=== PATIENT | male | born 1965 | race Caucasian/White ===

== ENCOUNTER 2024-09-01 21:06 | Emergency (ER) | payer MEDICARE, OTHER ==
--- NOTE | 2024-09-01 21:39 | ED ---
Chest Pain HPI - General Source: patient Mode of arrival: ambulatory Limitations: no limitations <Avila Hinds - Last Filed: 09/01/24 21:37> <Palmer Ambriz - Last Filed: 09/26/24 06:18> - General Stated Complaint: chest pain Time Seen by Provider: 09/01/24 21:20 - History of Present Illness Initial Comments: Quick note: This is a 58-year-old male with history of cardiac stents and catheterizations presenting via EMS with low blood pressure since this morning. Patient endorses blood pressure in the 70s over 40s with associated presyncope and low burning in his left lower chest. Patient states he has a history of low blood pressure and takes medication to correct it. Denies dyspnea, radiating pain, pallor, diaphoresis. (Avila Hinds) - Related Data Home Medications Medication Instructions Recorded Confirmed ARIPiprazole [Abilify] 2 mg PO HS 08/15/24 08/15/24 Clopidogrel [Plavix] 75 mg PO DAILY 08/15/24 08/15/24 Colchicine [Colcrys] 0.6 mg PO DAILY 08/15/24 08/15/24 Empagliflozin [Jardiance] 10 mg PO DAILY 08/15/24 08/15/24 Metoprolol Succinate (ER) [Toprol 25 mg PO DAILY 08/15/24 08/15/24 XL] Mometasone/Formoterol [Dulera 200 2 puff INHALATION RT-BID 08/15/24 08/15/24 Mcg-5 Mcg Inhaler] Pregabalin [Lyrica] 200 mg PO BID 08/15/24 08/15/24 Ranolazine [Ranexa] 1,000 mg PO BID 08/15/24 08/15/24 Rosuvastatin Calcium [Crestor] 40 mg PO DAILY 08/15/24 08/15/24 Sertraline [Zoloft] 100 mg PO DAILY 08/15/24 08/15/24 Ziprasidone [Geodon] 80 mg PO DAILY 08/15/24 08/15/24 busPIRone HCL 15 mg PO TID 08/15/24 08/15/24 metFORMIN HCL ER [Glucophage XR] 500 mg PO W/SUPPER 08/15/24 08/15/24 Previous Rx's Medication Instructions Recorded Fenofibrate [Lofibra] 54 mg PO DAILY 30 Days #30 tab 08/15/24 Fludrocortisone [Florinef] 0.1 mg PO DAILY 30 Days #30 tab 08/15/24 Allergies Allergy/AdvReac Type Severity Reaction Status Date / Time codeine Allergy Rash/Hives Verified 09/21/24 06:51 Review of Systems ROS Other: All systems not noted in ROS Statement are negative. <GuzmanAvila - Last Filed: 09/01/24 21:37> ROS Other: All systems not noted in ROS Statement are negative. <Palmer Ambriz - Last Filed: 09/26/24 06:18> ROS Statement: Those systems with pertinent positive or pertinent negative responses have been documented in the HPI. Past Medical History Past Medical History: Asthma, Coronary Artery Disease (CAD), Chest Pain / Angina, COPD, Diabetes Mellitus, GERD/Reflux, Hyperlipidemia, Myocardial Infarction ([place]), Sleep Apnea/CPAP/BIPAP, Syncope Additional Past Medical History / Comment(s): 6 stents and 8 heart caths, bilateral cataracts, hypotension,divericulitis Last Myocardial Infarction Date:: 2022 History of Any Multi-Drug Resistant Organisms: None Reported Past Surgical History: Appendectomy, Bowel Resection, Heart Catheterization With Stent, Hernia Repair, Tonsillectomy Additional Past Surgical History / Comment(s): right knee, right forearm. left facial reconstruction, bilateral henia sx, partial left colon removed Past Anesthesia/Blood Transfusion Reactions: No Reported Reaction Date of Last Stent Placement:: 06/2024 Past Psychological History: ADD/ADHD, Anxiety, Bipolar, Depression Smoking Status: Former smoker Past Alcohol Use History: None Reported Past Drug Use History: None Reported - Past Family History Father Family Medical History: Cancer Additional Family Medical History / Comment(s): brain cancer Mother Family Medical History: Congestive Heart Failure (CHF) <GuzmanAvila - Last Filed: 09/01/24 21:37> General Exam <GuzmanAvila - Last Filed: 09/01/24 21:37> Limitations: no limitations General appearance: alert, in no apparent distress Head exam: Present: atraumatic, normocephalic Eye exam: Present: normal appearance ENT exam: Present: normal oropharynx Neck exam: Present: normal inspection Respiratory exam: Present: normal lung sounds bilaterally. Absent: respiratory distress, wheezes, rales, rhonchi, stridor, accessory muscle use Cardiovascular Exam: Present: regular rate, normal rhythm, normal heart sounds. Absent: systolic murmur, diastolic murmur, rubs, gallop GI/Abdominal exam: Present: soft. Absent: distended, tenderness, guarding, rebound, rigid, mass Extremities exam: Present: normal inspection, normal capillary refill. Absent: pedal edema, calf tenderness Back exam: Present: normal inspection. Absent: CVA tenderness (R), CVA tenderness (L) Neurological exam: Present: alert Skin exam: Present: warm, dry, intact, normal color. Absent: rash <Palmer Ambriz - Last Filed: 09/26/24 06:18> - General Exam Comments Initial Comments: Visual Physical Exam Vital signs reviewed General: Well-appearing, nontoxic, no acute distress. Head: Normocephalic, atraumatic Eyes: PERRLA, EOMI ENT: Airway patent Chest: Nonlabored breathing Skin: No visual rash, normal skin tone Neuro: Alert and oriented 3 Musculoskeletal: No gross abnormalities (Avila Hinds) Course Vital Signs 09/01/24 09/02/24 09/02/24 22:34 00:46 02:18 Temperature 98.1 F Pulse Rate 85 86 84 Respiratory 16 16 16 Rate Blood Pressure 124/79 133/79 134/80 O2 Sat by Pulse 98 97 99 Oximetry 09/02/24 03:03 Temperature Pulse Rate 87 Respiratory 18 Rate Blood Pressure 146/92 O2 Sat by Pulse 99 Oximetry Chest Pain MDM <Avila Hinds - Last Filed: 09/01/24 21:37> <Palmer Ambriz - Last Filed: 09/26/24 06:18> - MDM I completed the quick note portion of this chart signed ALBINO Franklin (Avila Hinds) The patient had chest x-ray that I interpreted as negative for acute infiltrate, pneumothorax, congestive heart failure Was pt. sent in by a medical professional or institution (BRAD Hernandez, [employer]ER, urgent care, hospital, or [facility]...) When possible be specific @ -[No] Did you speak to anyone other than the patient for history (EMS, parent, family, police, friend...)? What history was obtained from this source @ -[No] Did you review nursing and triage notes (agree or disagree)? Why? @ -[I reviewed and agree with nursing and triage notes] Were old charts reviewed (outside hosp., previous admission, EMS record, old EKG, old radiological studies, urgent care reports/EKG's, [facility] records)? Report findings @ -[No old charts were reviewed] Differential Diagnosis (chest pain, altered mental status, abdominal pain women, abdominal pain men, vaginal bleeding, weakness, fever, dyspnea, syncope, headache, dizziness, GI bleed, back pain, seizure, CVA, palpatations, mental health, musculoskeletal)? @ -[Differential Chest Pain: Stable Angina, Unstable Angina, STEMI, NSTEMI Aortic Dissection, Pneumothorax, Musculoskeletal, Esophageal Spasm GERD, Cholecystitis, Pancreatitis, Zoster, this is not meant to be an all-inclusive list. EKG interpreted by me (3pts min.). @ -[As above] X-rays interpreted by me (1pt min.). @ -[I interpreted as above CT interpreted by me (1pt min.). @ -[None done] U/S interpreted by me (1pt. min.). @ -[None done] What testing was considered but not performed or refused? (CT, X-rays, U/S, labs)? Why? @ -[None] What meds were considered but not given or refused? Why? @ -[None] Did you discuss the management of the patient with other professionals (professionals i.e. , PA, [employer]UCETS ASSEMBLER, lab, RT, psych nurse, social work professor, table assembler metal, teacher, customs and border protection officer, rehabilitation case coordinator)? Give summary @ -[No] Was smoking cessation discussed for >3mins.? @ -[No] Was critical care preformed (if so, how long)? @ -[No] Were there social determinants of health that impacted care today? How? (Homelessness, low income, unemployed, alcoholism, drug addiction, transportation, low edu. Level, literacy, decrease access to med. care, fdc, rehab)? @ -[No] Was there de-escalation of care discussed even if they declined (Discuss DNR or withdrawal of care, Hospice)? DNR status @ -[No] What co-morbidities impacted this encounter? (DM, HTN, Smoking, COPD, CAD, Cancer, CVA, ARF, Chemo, Hep., AIDS, mental health diagnosis, sleep apnea, morbid obesity)? @ -[Diabetes. Hypotension Was patient admitted / discharged? Hospital course, mention meds given and route, prescriptions, significant lab abnormalities, going to OR and other pertinent info. @ -[Patient here with chest pain. The initial history and physical exam are benign. Given that the patient had recent onset symptoms he is kept for 2 sets of troponins. After that on reevaluation patient is feeling well and would like to go home. Discussed appropriate further care and follow-up as well as return parameters. Patient to have follow-up with cardiology. Undiagnosed new problem with uncertain prognosis? @ -[No] Drug Therapy requiring intensive monitoring for toxicity (Heparin, Nitro, Insulin, Cardizem)? @ -[No] Were any procedures done? @ -[No] Diagnosis/symptom? @ -[Acute chest pain Acute on chronic hypotension Acute, or Chronic, or Acute on Chronic? @ -[Acute Uncomplicated (without systemic symptoms) or Complicated (systemic symptoms)? @ -[Uncomplicated Side effects of treatment? @ -[No] Exacerbation, Progression, or Severe Exacerbation? @ -[No] Poses a threat to life or bodily function? How? (Chest pain, [place], [place], pneumonia, PE, COPD, DKA, ARF, appy, cholecystitis, CVA, Diverticulitis, Homicidal, Suicidal, threat to staff... and all critical care pts) @ -[There is some risk of threat to life therefore patient to have close follow-up with cardiology All treatments are based on ideal body weight as in ED triage (Palmer Ambriz) Disposition <Avila Hinds - Last Filed: 09/01/24 21:37> Is patient prescribed a controlled substance at d/c from ED?: No <Palmer Ambriz - Last Filed: 09/26/24 06:18> Clinical Impression: Chest pain Disposition: HOME SELF-CARE Condition: Good Instructions (If sedation given, give patient instructions): Chest Pain (ED) Referrals: None,Stated [Primary Care Provider] - 1-2 days
[2024-09-01 22:16] LABS: ALT 18 U/L (4-49); AST 22 U/L (17-59); African American GFR (CKD) >90 (>60 ml/min/1.73 sqM); Albumin 3.9 g/dL (3.5-5.0); Alkaline Phosphatase 75 U/L (38-126); Anion Gap 12 mmol/L; Blood Urea Nitrogen 10 mg/dL (9-20); Calcium 9.5 mg/dL (8.4-10.2); Carbon Dioxide 20 mmol/L (22-30); Chloride 107 mmol/L (98-107); Glucose 150 mg/dL (74-99); Non-African American GFR(CKD) 84 (>60 ml/min/1.73 sqM); Potassium 3.4 mmol/L (3.5-5.1); Sodium 139 mmol/L (137-145); Total Bilirubin 0.4 mg/dL (0.2-1.3); Total Protein 6.2 g/dL (6.3-8.2)
[2024-09-01 22:19] LABS: Partial Thromboplastin Time 23.3 sec (22.0-30.0); Prothrombin Time 10.9 sec (10.0-12.5)
[2024-09-01 22:26] LABS: HCT 32.8 % (39.0-53.0); HGB 10.2 gm/dL (13.0-17.5); Hypochromasia Slight; MCH 26.3 pg (25.0-35.0); MCHC 31.1 g/dL (31.0-37.0); MCV 84.5 fL (80.0-100.0); Mean Platelet Volume 7.7; Platelet Count 300 k/uL (150-450); RBC 3.88 m/uL (4.30-5.90); RDW 15.9 % (11.5-15.5); WBC 3.6 k/uL (3.8-10.6)
[2024-09-01 22:38] VITALS: TEMP 98.1
[2024-09-01 22:57] LABS: Band Neutrophils % 1 %; Eosinophils # (M) 0.25 k/uL (0-0.7); Lymphocytes # (M) 1.66 k/uL (1.0-4.8); Monocytes # (M) 0.54 k/uL (0-1.0); Neutrophils % (M) 31 %; Nucleated Red Blood Cells 0 /100 WBC (0-0); Total Cells Counted 100
[2024-09-01 22:58] LABS: Polychromasia Present
--- NOTE | 2024-09-02 00:08 | XR ---
EXAM: XR Chest, 2 Views CLINICAL HISTORY: ITS.REASON XR Reason: Chest Pain TECHNIQUE: Frontal and lateral views of the chest. COMPARISON: 08/14/24 FINDINGS: Lungs: No consolidation. Pleural space: No pleural effusion or pneumothorax. Heart: No cardiomegaly or pulmonary vascular congestion. Bones/joints: No acute fracture. No dislocation. Old right rib fractures. IMPRESSION: No evidence of acute cardiopulmonary disease.
[2024-09-02 03:13] VITALS: BP 146/92; PULSE 87; RESP 18
== END 2024-09-02 03:13 | disposition home or self-care (01) ==
LOC: EC 21:06
DX: R07.9 Chest pain, unspecified (principal); E11.9 Type 2 diabetes mellitus without complications; I10 Essential (primary) hypertension; Z95.5 Presence of coronary angioplasty implant and graft; Z87.891 Personal history of nicotine dependence; Z88.5 Allergy status to narcotic agent
CPT/HCPCS: 36415; 71046; 80053; 83735; 84484; 85025; 85610; 85730; 93005; 99285

== ENCOUNTER 2024-09-21 06:49 | Emergency (ER) | payer MEDICARE, OTHER ==
--- NOTE | 2024-09-21 06:56 | ED ---
General Adult HPI - General Chief complaint: Urogenital Stated complaint: Back Pain Time Seen by Provider: 09/21/24 06:55 Source: patient, RN notes reviewed Mode of arrival: ambulatory Limitations: no limitations - History of Present Illness Initial comments: 59-year-old male presents emergency department complaint of right flank pain. Patient states he woke up with pain without injury. Patient states his worse with movement and touching of the area but it denies any rashes, falls or trauma. Does have a history of some kidney issues believes he may have had a history of kidney stones no dysuria denies fevers or chills no chest pain or shortness of breath. - Related Data Home Medications Medication Instructions Recorded Confirmed ARIPiprazole [Abilify] 2 mg PO HS 08/15/24 08/15/24 Clopidogrel [Plavix] 75 mg PO DAILY 08/15/24 08/15/24 Colchicine [Colcrys] 0.6 mg PO DAILY 08/15/24 08/15/24 Empagliflozin [Jardiance] 10 mg PO DAILY 08/15/24 08/15/24 Metoprolol Succinate (ER) [Toprol 25 mg PO DAILY 08/15/24 08/15/24 XL] Mometasone/Formoterol [Dulera 200 2 puff INHALATION RT-BID 08/15/24 08/15/24 Mcg-5 Mcg Inhaler] Pregabalin [Lyrica] 200 mg PO BID 08/15/24 08/15/24 Ranolazine [Ranexa] 1,000 mg PO BID 08/15/24 08/15/24 Rosuvastatin Calcium [Crestor] 40 mg PO DAILY 08/15/24 08/15/24 Sertraline [Zoloft] 100 mg PO DAILY 08/15/24 08/15/24 Ziprasidone [Geodon] 80 mg PO DAILY 08/15/24 08/15/24 busPIRone HCL 15 mg PO TID 08/15/24 08/15/24 metFORMIN HCL ER [Glucophage XR] 500 mg PO W/SUPPER 08/15/24 08/15/24 Previous Rx's Medication Instructions Recorded Fenofibrate [Lofibra] 54 mg PO DAILY 30 Days #30 tab 08/15/24 Fludrocortisone [Florinef] 0.1 mg PO DAILY 30 Days #30 tab 08/15/24 Allergies Allergy/AdvReac Type Severity Reaction Status Date / Time codeine Allergy Rash/Hives Verified 09/21/24 06:51 Review of Systems ROS Statement: Those systems with pertinent positive or pertinent negative responses have been documented in the HPI. ROS Other: All systems not noted in ROS Statement are negative. Past Medical History Past Medical History: Asthma, Coronary Artery Disease (CAD), Chest Pain / Angina, COPD, Diabetes Mellitus, GERD/Reflux, Hyperlipidemia, Myocardial Infarction ([place]), Sleep Apnea/CPAP/BIPAP, Syncope Additional Past Medical History / Comment(s): 6 stents and 8 heart caths, bilateral cataracts, hypotension,divericulitis Last Myocardial Infarction Date:: 2022 History of Any Multi-Drug Resistant Organisms: None Reported Past Surgical History: Appendectomy, Bowel Resection, Heart Catheterization With Stent, Hernia Repair, Tonsillectomy Additional Past Surgical History / Comment(s): right knee, right forearm. left facial reconstruction, bilateral henia sx, partial left colon removed Past Anesthesia/Blood Transfusion Reactions: No Reported Reaction Date of Last Stent Placement:: 06/2024 Past Psychological History: ADD/ADHD, Anxiety, Bipolar, Depression Smoking Status: Former smoker Past Alcohol Use History: None Reported Past Drug Use History: None Reported - Past Family History Father Family Medical History: Cancer Additional Family Medical History / Comment(s): brain cancer Mother Family Medical History: Congestive Heart Failure (CHF) General Exam Limitations: no limitations General appearance: alert, in no apparent distress Head exam: Present: atraumatic, normocephalic, normal inspection Eye exam: Present: normal appearance, PERRL, EOMI. Absent: scleral icterus, conjunctival injection, periorbital swelling ENT exam: Present: normal exam, normal oropharynx, mucous membranes moist Neck exam: Present: normal inspection, full ROM. Absent: tenderness, meningismus, lymphadenopathy Respiratory exam: Present: normal lung sounds bilaterally. Absent: respiratory distress, wheezes, rales, rhonchi, stridor Cardiovascular Exam: Present: regular rate, normal rhythm, normal heart sounds. Absent: systolic murmur, diastolic murmur, rubs, gallop, clicks GI/Abdominal exam: Present: soft, normal bowel sounds. Absent: distended, tenderness, guarding, rebound, rigid Back exam: Present: CVA tenderness (R). Absent: CVA tenderness (L) Neurological exam: Present: alert, oriented X3, CN II-XII intact, reflexes normal. Absent: motor sensory deficit Course Vital Signs 09/21/24 09/21/24 09/21/24 06:51 07:56 10:00 Temperature 97.7 F 97.9 F Pulse Rate 105 H 76 78 Respiratory 18 16 15 Rate Blood Pressure 104/69 123/78 129/82 O2 Sat by Pulse 100 96 99 Oximetry Medical Decision Making - Medical Decision Making Was pt. sent in by a medical professional or institution (, PA, MECHANICAL DESIGN ENG[employer]ER [employer], urgent care, hospital, or group home...) When possible be specific @ -No Did you speak to anyone other than the patient for history (EMS, parent, family, police, friend...)? What history was obtained from this source @ -No Did you review nursing and triage notes (agree or disagree)? Why? @ -I reviewed and agree with nursing and triage notes Were old charts reviewed (outside hosp., previous admission, EMS record, old EKG, old radiological studies, urgent care reports/EKG's, group home records)? Report findings @ -No old charts were reviewed Differential Diagnosis (chest pain, altered mental status, abdominal pain women, abdominal pain men, vaginal bleeding, weakness, fever, dyspnea, syncope, headache, dizziness, GI bleed, back pain, seizure, CVA, palpatations, mental health, musculoskeletal)? @ -Differential Abdominal Pain Men: Appendicitis, cholecystitis, diverticulosis, ischemic bowel, pancreatitis, hepatitis, UTI, gastroenteritis, AAA, incarcerated hernia, bowel obstruction, constipation, inflammatory bowel, hepatitis, peptic ulcer disease, splenic infarction, perforated viscus, testicular torsion, this is not meant to be an all-inclusive list EKG interpreted by me (3pts min.). @ -As above X-rays interpreted by me (1pt min.). @ -None CT interpreted by me (1pt min.). @ -CT abdomen pelvis showing old rib fractures, no acute process U/S interpreted by me (1pt. min.). @ -None done What testing was considered but not performed or refused? (CT, X-rays, U/S, labs)? Why? @ -None What meds were considered but not given or refused? Why? @ -None Did you discuss the management of the patient with other professionals (professionals i.e. , PA, MECHANICAL DESIGN ENGINEER [employer]IES, lab, RT, psych nurse, public health social worker, dial mounter, teacher, energy control officer, returned case inspector)? Give summary @ -No Was smoking cessation discussed for >3mins.? @ -No Was critical care preformed (if so, how long)? @ -No Were there social determinants of health that impacted care today? How? (Homelessness, low income, unemployed, alcoholism, drug addiction, transportation, low edu. Level, literacy, decrease access to med. care, halfway, rehab)? @ -No Was there de-escalation of care discussed even if they declined (Discuss DNR or withdrawal of care, Hospice)? DNR status @ -No What co-morbidities impacted this encounter? (DM, HTN, Smoking, COPD, CAD, Cancer, CVA, ARF, Chemo, Hep., AIDS, mental health diagnosis, sleep apnea, morbid obesity)? @ -None Was patient admitted / discharged? Hospital course, mention meds given and route, prescriptions, significant lab abnormalities, going to OR and other pertinent info. @ -Discharge patient has moderate hyperglycemia patient did not take his morning medication patient offered insulin patient states she will take his meds at home. Patient has reproducible rib tenderness may be laboratory process patient has old rib fractures no new trauma we discussed possible early shingles patient discharged in stable condition Undiagnosed new problem with uncertain prognosis? @ -No Drug Therapy requiring intensive monitoring for toxicity (Heparin, Nitro, Insulin, Cardizem)? @ -No Were any procedures done? @ -No Diagnosis/symptom? @ -Chest wall pain, rib pain Acute, or Chronic, or Acute on Chronic? @ -[Acute Uncomplicated (without systemic symptoms) or Complicated (systemic symptoms)? @ -Uncomplicated Side effects of treatment? @ -[No Exacerbation, Progression, or Severe Exacerbation? @ -No Poses a threat to life or bodily function? How? (Chest pain, [place], [place], pneumonia, PE, COPD, DKA, ARF, appy, cholecystitis, CVA, Diverticulitis, Homicidal, Suicidal, threat to staff... and all critical care pts) @ -No - Lab Data Result diagrams: 09/21/24 07:49 09/21/24 07:49 Lab Results 03/19/25 03/19/25 03/19/25 Range/Units 07:49 07:49 07:49 WBC 3.6 L (3.8-10.6) k/uL RBC 4.51 (4.30-5.90) m/uL Hgb 11.5 L (13.0-17.5) gm/dL Hct 37.4 L (39.0-53.0) % MCV 83.0 (80.0-100.0) fL MCH 25.4 (25.0-35.0) pg MCHC 30.6 L (31.0-37.0) g/dL RDW 15.5 (11.5-15.5) % Plt Count 361 (150-450) k/uL MPV 7.5 Neutrophils % 54 % Lymphocytes % 25 % Monocytes % 10 % Eosinophils % 6 % Basophils % 1 % Neutrophils # 2.0 (1.3-7.7) k/uL Lymphocytes # 0.9 L (1.0-4.8) k/uL Monocytes # 0.3 (0-1.0) k/uL Eosinophils # 0.2 (0-0.7) k/uL Basophils # 0.0 (0-0.2) k/uL Hypochromasia Marked Sodium 133 L (137-145) mmol/L Potassium 4.4 (3.5-5.1) mmol/L Chloride 96 L (98-107) mmol/L Carbon Dioxide 25 (22-30) mmol/L Anion Gap 12 mmol/L BUN 14 (9-20) mg/dL Creatinine 1.19 (0.66-1.25) mg/dL Est GFR (CKD-EPI)AfAm 76 (>60 ml/min/1.73 sqM) Est GFR (CKD-EPI)NonAf 66 (>60 ml/min/1.73 sqM) Glucose 339 H (74-99) mg/dL Calcium 10.9 H (8.4-10.2) mg/dL Total Bilirubin 0.5 (0.2-1.3) mg/dL AST 29 (17-59) U/L ALT 26 (4-49) U/L Alkaline Phosphatase 84 (38-126) U/L Total Protein 7.6 (6.3-8.2) g/dL Albumin 4.8 (3.5-5.0) g/dL Lipase 107 (23-300) U/L Urine Color Light Yellow Urine Appearance Clear (Clear) Urine pH 6.0 (5.0-8.0) Ur Specific [place] 1.026 (1.001-1.035) Urine Protein Trace H (Negative) Urine Glucose (UA) 4+ H (Negative) Urine Ketones Trace H (Negative) Urine Blood Negative (Negative) Urine Nitrite Negative (Negative) Urine Bilirubin Negative (Negative) Urine Urobilinogen <2.0 (<2.0) mg/dL Ur Leukocyte Esterase Negative (Negative) Disposition Clinical Impression: Rib pain on right side Disposition: HOME SELF-CARE Condition: Stable Instructions (If sedation given, give patient instructions): Chest Wall Pain (ED) Additional Instructions: Please return to the Emergency Department if symptoms worsen or any other concerns. Is patient prescribed a controlled substance at d/c from ED?: No Referrals: Sima Mcqueen DO [Primary Care Provider] - 1-2 days Time of Disposition: 10:05
[2024-09-21] MEDS: SODIUM CHLORIDE 0.9% 1,000 ML IV ONE (07:51)
[2024-09-21] MEDS: ONDANSETRON 4 MG/2 ML VIAL IVP STA (07:52)
[2024-09-21] MEDS: HYDROmorphone 0.5 MG/0.5 ML SYRINGE IVP STA (07:52)
[2024-09-21 07:57] LABS: Basophils % (A) 1 %; Eosinophils # (A) 0.2 k/uL (0-0.7); Eosinophils % (A) 6 %; HCT 37.4 % (39.0-53.0); HGB 11.5 gm/dL (13.0-17.5); Hypochromasia Marked; Lymphocytes # (A) 0.9 k/uL (1.0-4.8); Lymphocytes % (A) 25 %; MCH 25.4 pg (25.0-35.0); MCHC 30.6 g/dL (31.0-37.0); Mean Platelet Volume 7.5; Monocytes # (A) 0.3 k/uL (0-1.0); Monocytes % (A) 10 %; Neutrophils % (A) 54 %; Platelet Count 361 k/uL (150-450); RBC 4.51 m/uL (4.30-5.90); RDW 15.5 % (11.5-15.5); WBC 3.6 k/uL (3.8-10.6)
[2024-09-21 08:01] VITALS: TEMP 97.9
[2024-09-21 08:02] LABS: Appearance,Urine Clear (Clear); Bilirubin,Urine Negative (Negative); Blood,Urine Negative (Negative); Color,Urine Light Yellow; Glucose,Urine (UA) 4+ (Negative); Ketones,Urine Trace (Negative); Leukocyte Esterase,Urine Negative (Negative); Nitrite,Urine Negative (Negative); Protein,Urine Trace (Negative); Specific Gravity,Urine 1.026 (1.001-1.035); Urobilinogen,Urine <2.0 mg/dL (<2.0)
[2024-09-21 08:11] LABS: ALT 26 U/L (4-49); AST 29 U/L (17-59); African American GFR (CKD) 76 (>60 ml/min/1.73 sqM); Albumin 4.8 g/dL (3.5-5.0); Alkaline Phosphatase 84 U/L (38-126); Anion Gap 12 mmol/L; Blood Urea Nitrogen 14 mg/dL (9-20); Calcium 10.9 mg/dL (8.4-10.2); Carbon Dioxide 25 mmol/L (22-30); Chloride 96 mmol/L (98-107); Glucose 339 mg/dL (74-99); Lipase 107 U/L (23-300); Non-African American GFR(CKD) 66 (>60 ml/min/1.73 sqM); Potassium 4.4 mmol/L (3.5-5.1); Sodium 133 mmol/L (137-145); Total Bilirubin 0.5 mg/dL (0.2-1.3); Total Protein 7.6 g/dL (6.3-8.2)
--- NOTE | 2024-09-21 08:50 | CT ---
EXAMINATION TYPE: CT abdomen pelvis wo con DATE OF EXAM: 09/21/2024 8:20 AM COMPARISON: None. CLINICAL INDICATION: Male, 59 years old with history of right flank pain/rib pain; TECHNIQUE: Axial CT abdomen pelvis wo con;Sagittal and coronal reformats were created on a separate workstation. Contrast used: mL of , (none if empty) Oral contrast used: (none if empty) CT DLP: 406 mGycm, Automated exposure control for dose reduction was used. FINDINGS: LOWER CHEST: Remote appearing right rib 9-12 fractures with healing changes. Normal-appearing right t ransverse process of L1 fracture. ABDOMEN LIVER: Unremarkable GALLBLADDER AND BILE DUCTS: Unremarkable. PANCREAS: Unremarkable. SPLEEN: Unremarkable. ADRENAL GLANDS: Unremarkable. KIDNEYS AND URETERS: No evidence of hydronephrosis or obstructive renal calculus. 2 mm right renal ca lculus The ureters are unremarkable. PELVIS BLADDER: No evidence for wall thickening or mass given limitations of exam. REPRODUCTIVE: Unremarkable. ABDOMEN & PELVIS STOMACH AND BOWEL: No evidence of bowel obstruction. Appendix is identified and is within normal limi ts. Postsurgical changes to the sigmoid colon, no evidence for wall thickening or obstruction. Scatte red colonic diverticula. PERITONEUM/RETROPERITONEUM: No evidence of pneumoperitoneum or free fluid. VASCULATURE: Mild atherosclerotic calcifications are present throughout the abdominal aorta and its b ranches. No evidence of aortic aneurysm. MUSCULOSKELETAL: No acute osseous abnormalities. Mild disc degeneration changes are present throughou t the thoracolumbar spine. LYMPH NODES: No gross evidence for lymphadenopathy. SOFT TISSUE/ABDOMINAL WALL: Unremarkable IMPRESSION: 1. No evidence for obstructive uropathy. 2. Tiny 2 mm right renal calculus. 3. Remote appearing right rib 9-12 And Right Transverse Process Of L1 fractures. 4. Appendix is normal. 5. Colonic diverticulosis. [facility], , 09/21/2024 8:48 AM
[2024-09-21 10:07] VITALS: BP 129/82; PULSE 78; RESP 15
[2024-09-21] MEDS: traMADol 50 MG STARTER PACK 3 TAB BTL PO STA (10:14)
== END 2024-09-21 10:25 | disposition home or self-care (01) ==
LOC: EC 06:49
DX: R07.81 Pleurodynia (principal); Z87.891 Personal history of nicotine dependence; Z88.5 Allergy status to narcotic agent
CPT/HCPCS: 36415; 80053; 83690; 85025; 81003; 74176; 99284; 96374; 96375; 96361; J2405; J1171

== ENCOUNTER 2024-12-30 01:32 | Observation (INO) | payer MEDICARE, OTHER ==
[2024-12-30 01:43] VITALS: TEMP 98
[2024-12-30 02:11] LABS: Glucose,Whole Blood 120 mg/dL (70-110)
[2024-12-30 02:30] LABS: Basophils # (A) 0.06 10*3/uL (0.00-0.10); Eosinophils # (A) 0.21 10*3/uL (0.04-0.35); Eosinophils % (A) 3.5 %; HCT 33.1 % (39.6-50.0); HGB 10.7 g/dL (13.0-17.0); Lymphocytes # (A) 2.23 10*3/uL (0.90-5.00); Lymphocytes % (A) 36.9 %; MCH 26.1 pg (27.0-32.0); MCHC 32.3 g/dL (32.0-37.0); MCV 80.7 fL (80.0-97.0); Monocytes # (A) 0.57 10*3/uL (0.20-1.00); Monocytes % (A) 9.4 %; Neutrophils # (A) 2.93 10*3/uL (1.80-7.70); Neutrophils % (A) 48.4 %; Platelet Count 342 10*3/uL (140-440); RDW 18.6 % (11.5-14.5); WBC 6.05 10*3/uL (4.50-10.00)
[2024-12-30] MEDS: SODIUM CHLORIDE 0.9% 1,000 ML IV STA (02:41)
[2024-12-30] MEDS: ASPIRIN 81 MG PO STA (02:42)
[2024-12-30] MEDS: NITROGLYCERIN SL TABS 0.4 MG TAB SUBLINGUAL STA (02:43)
[2024-12-30 02:46] LABS: ALT 12 U/L (4-49); African American GFR (CKD) >90 (>60 ml/min/1.73 sqM); Albumin 4.3 g/dL (3.5-5.0); Anion Gap 14 mmol/L; Blood Urea Nitrogen 10 mg/dL (9-20); Calcium 9.6 mg/dL (8.4-10.2); Carbon Dioxide 20 mmol/L (22-30); Chloride 105 mmol/L (98-107); Glucose 117 mg/dL (74-99); Lipase 98 U/L (23-300); Non-African American GFR(CKD) >90 (>60 ml/min/1.73 sqM); Sodium 139 mmol/L (137-145); Total Bilirubin 0.4 mg/dL (0.2-1.3); Total Protein 7.1 g/dL (6.3-8.2)
[2024-12-30 02:52] LABS: AST 25 U/L (17-59); Alkaline Phosphatase 69 U/L (38-126); INR 0.9 (<1.2); Magnesium 2.2 mg/dL (1.6-2.3); Partial Thromboplastin Time 22.2 sec (22.0-30.0); Potassium 4.1 mmol/L (3.5-5.1); Prothrombin Time 9.8 sec (10.0-12.5)
[2024-12-30] MEDS ORDERED: NALOXONE 0.4 MG/ML 1 ML VIAL IV PRN (04:00)
[2024-12-30] MEDS ORDERED: ONDANSETRON 4 MG/2 ML VIAL IVP PRN (04:00)
--- NOTE | 2024-12-30 04:02 | ED ---
General Adult HPI - General Chief complaint: Chest Pain Stated complaint: chest pain abnormal labs Time Seen by Provider: 12/30/24 02:12 Source: patient, RN notes reviewed, old records reviewed Mode of arrival: ambulatory Limitations: no limitations - History of Present Illness Initial comments: Patient is a 59-year-old male with past medical history remarkable for CAD with multiple cardiac stents, asthma, diabetes, COPD who presents emergency department complaining of chest pain. Was somewhat sudden onset approximately an hour and a half ago. Describes it as substernal with some radiation up towards his neck. Denies any arm involvement. Denies any diaphoresis or nausea. Denies any worsening with exertion. Thinks his blood sugar also may be low. Denies any abdominal pain, nausea, vomiting, diarrhea. No fevers or chills or cough. Presents for further evaluation at this time. - Related Data Home Medications Medication Instructions Recorded Confirmed ARIPiprazole [Abilify] 2 mg PO HS 08/15/24 08/15/24 Clopidogrel [Plavix] 75 mg PO DAILY 08/15/24 08/15/24 Colchicine [Colcrys] 0.6 mg PO DAILY 08/15/24 08/15/24 Empagliflozin [Jardiance] 10 mg PO DAILY 08/15/24 08/15/24 Metoprolol Succinate (ER) [Toprol 25 mg PO DAILY 08/15/24 08/15/24 XL] Mometasone/Formoterol [Dulera 200 2 puff INHALATION RT-BID 08/15/24 08/15/24 Mcg-5 Mcg Inhaler] Pregabalin [Lyrica] 200 mg PO BID 08/15/24 08/15/24 Ranolazine [Ranexa] 1,000 mg PO BID 08/15/24 08/15/24 Rosuvastatin Calcium [Crestor] 40 mg PO DAILY 08/15/24 08/15/24 Sertraline [Zoloft] 100 mg PO DAILY 08/15/24 08/15/24 Ziprasidone [Geodon] 80 mg PO DAILY 08/15/24 08/15/24 busPIRone HCL 15 mg PO TID 08/15/24 08/15/24 metFORMIN HCL ER [Glucophage XR] 500 mg PO W/SUPPER 08/15/24 08/15/24 Previous Rx's Medication Instructions Recorded Fenofibrate [Lofibra] 54 mg PO DAILY 30 Days #30 tab 08/15/24 Fludrocortisone [Florinef] 0.1 mg PO DAILY 30 Days #30 tab 08/15/24 Allergies Allergy/AdvReac Type Severity Reaction Status Date / Time codeine Allergy Rash/Hives Verified 12/30/24 01:43 Review of Systems ROS Statement: Those systems with pertinent positive or pertinent negative responses have been documented in the HPI. Review of Systems: CONST: Denies fever EYES: Denies blurry vision ENT: Denies nasal congestion C/V: Endorses chest pain RESP: Denies shortness of breath GI: Denies abdominal pain : Denies dysuria SKIN: Denies rash. MSK: Denies joint pain. NEURO: Denies headache ROS Other: All systems not noted in ROS Statement are negative. Past Medical History Past Medical History: Asthma, Coronary Artery Disease (CAD), Chest Pain / Angina, COPD, Diabetes Mellitus, GERD/Reflux, Hyperlipidemia, Myocardial Infarction ([place]), Sleep Apnea/CPAP/BIPAP, Syncope Additional Past Medical History / Comment(s): 6 stents and 8 heart caths, bilateral cataracts, hypotension,divericulitis Last Myocardial Infarction Date:: 2022 History of Any Multi-Drug Resistant Organisms: None Reported Past Surgical History: Appendectomy, Bowel Resection, Heart Catheterization With Stent, Hernia Repair, Tonsillectomy Additional Past Surgical History / Comment(s): right knee, right forearm. left facial reconstruction, bilateral henia sx, partial left colon removed Past Anesthesia/Blood Transfusion Reactions: No Reported Reaction Date of Last Stent Placement:: 06/2024 Past Psychological History: ADD/ADHD, Anxiety, Bipolar, Depression Smoking Status: Former smoker Past Alcohol Use History: None Reported Past Drug Use History: None Reported - Past Family History Father Family Medical History: Cancer Additional Family Medical History / Comment(s): brain cancer Mother Family Medical History: Congestive Heart Failure (CHF) General Exam - General Exam Comments Initial Comments: General: Appears in no acute distress. HEAD: Normal with no signs of head trauma. EYES: PERRLA, EOMI, conjunctiva normal, no discharge. ENT: Hearing grossly intact, normal oropharynx. RESPIRATORY: Clear breath sounds bilaterally. No wheezes, rales, or rhonchi. C/V: Regular rate and rhythm. S1 and S2 auscultated, no edema, peripheral pulses 2+ and intact throughout ABD: Abd is soft, nontender, nondistended EXT: Normal range of motion, no obvious deformity SKIN: No rashes or lesions observed on exposed skin. NEURO: Alert and oriented x 4. Limitations: no limitations Course Vital Signs 12/30/24 01:38 Temperature 98 F Pulse Rate 89 Respiratory 18 Rate Blood Pressure 133/78 O2 Sat by Pulse 98 Oximetry Medical Decision Making - Medical Decision Making Was pt. sent in by a medical professional or institution (, BRAD, SUPERVISOR RIDE [employer]SEM[employer], urgent care, hospital, or care home...) When possible be specific @ -No Did you speak to anyone other than the patient for history (EMS, parent, family, police, friend...)? What history was obtained from this source @ -No Did you review nursing and triage notes (agree or disagree)? Why? @ -I reviewed and agree with nursing and triage notes Were old charts reviewed (outside hosp., previous admission, EMS record, old EKG, old radiological studies, urgent care reports/EKG's, care home records)? Report findings @ -Old EKGs reviewed from August 2024 with no significant acute change when compared with today's. Differential Diagnosis (chest pain, altered mental status, abdominal pain women, abdominal pain men, vaginal bleeding, weakness, fever, dyspnea, syncope, headache, dizziness, GI bleed, back pain, seizure, CVA, palpatations, mental health, musculoskeletal)? @ -Differential Chest Pain: Stable Angina, Unstable Angina, STEMI, NSTEMI Aortic Dissection, Pneumothorax, Musculoskeletal, Esophageal Spasm GERD, Cholecystitis, Pancreatitis, Zoster, this is not meant to be an all-inclusive list. EKG interpreted by me (3pts min.). @ -As above X-rays interpreted by me (1pt min.). @ -Chest x-ray unremarkable for any obvious acute cardiopulmonary process. CT interpreted by me (1pt min.). @ -None done U/S interpreted by me (1pt. min.). @ -None done What testing was considered but not performed or refused? (CT, X-rays, U/S, labs)? Why? @ -None What meds were considered but not given or refused? Why? @ -None Did you discuss the management of the patient with other professionals (professionals i.e. , BRAD, SUPERVISOR [employer]IDE [employer]SEM[employer], lab, RT, psych nurse, social work specialist, shiatsu therapist, teacher, real estate officer, egg caser)? Give summary @ -Discussed with the admitting provider, CARLENE PETERS who accepted the admission. Was smoking cessation discussed for >3mins.? @ -No Was critical care preformed (if so, how long)? @ -No Were there social determinants of health that impacted care today? How? (Homelessness, low income, unemployed, alcoholism, drug addiction, transportation, low edu. Level, literacy, decrease access to med. care, senior living, rehab)? @ -No Was there de-escalation of care discussed even if they declined (Discuss DNR or withdrawal of care, Hospice)? DNR status @ -No What co-morbidities impacted this encounter? (DM, HTN, Smoking, COPD, CAD, Cancer, CVA, ARF, Chemo, Hep., AIDS, mental health diagnosis, sleep apnea, morbid obesity)? @ -CAD Was patient admitted / discharged? Hospital course, mention meds given and route, prescriptions, significant lab abnormalities, going to OR and other pertinent info. @ -Based on patient's presentation physical exam, presents emergency department complaining of chest pain. Has a significant cardiac history. Vitals are within acceptable limits. Patient was given 324 mg of aspirin as well as a nitroglycerin tablet and IV fluids. Cardiac workup will be obtained. Patient was in agreement this plan. EKG shows no signs of acute ischemia. Chest x-ray unremarkable. Laboratory studies remarkable for undetectable troponin. Patient's blood sugars within acceptable limits. On reevaluation, patient's chest pain completely resolved with nitroglycerin tablet. Nitropaste will be applied. He will be admitted to cardiac observation. He was in agreement this plan. I spoke with the admitting provider, CARLENE PETERS accepted the admission. Cardiology consulted. Echo ordered Undiagnosed new problem with uncertain prognosis? @ -No Drug Therapy requiring intensive monitoring for toxicity (Heparin, Nitro, Insulin, Cardizem)? @ -No Were any procedures done? @ -No Diagnosis/symptom? @ -Chest pain Acute, or Chronic, or Acute on Chronic? @ -Acute Uncomplicated (without systemic symptoms) or Complicated (systemic symptoms)? @ -complicated Side effects of treatment? @ -No Exacerbation, Progression, or Severe Exacerbation? @ -No Poses a threat to life or bodily function? How? (Chest pain, USA, SC, pneumonia, PE, COPD, DKA, ARF, appy, cholecystitis, CVA, Diverticulitis, Homicidal, Suicidal, threat to staff... and all critical care pts) @ -Potentially, yes - Lab Data Result diagrams: 12/30/24 02:10 12/30/24 02:10 Lab Results 12/30/24 12/30/24 12/30/24 Range/Units 02:10 02:10 02:10 WBC 6.05 (4.50-10.00) 10*3/uL RBC 4.10 L (4.40-5.60) 10*6/uL Hgb 10.7 L (13.0-17.0) g/dL Hct 33.1 L (39.6-50.0) % MCV 80.7 (80.0-97.0) fL MCH 26.1 L (27.0-32.0) pg MCHC 32.3 (32.0-37.0) g/dL Plt Count 342 (140-440) 10*3/uL MPV 10.0 (9.5-12.2) fL Immature Gran % (Auto) 0.8 % Neutrophils % 48.4 % Lymphocytes % 36.9 % Monocytes % 9.4 % Eosinophils % 3.5 % Basophils % 1.0 % Immature Gran # 0.05 H (0.00-0.04) 10*3/uL Neutrophils # 2.93 (1.80-7.70) 10*3/uL Lymphocytes # 2.23 (0.90-5.00) 10*3/uL Monocytes # 0.57 (0.20-1.00) 10*3/uL Eosinophils # 0.21 (0.04-0.35) 10*3/uL Basophils # 0.06 (0.00-0.10) 10*3/uL PT 9.8 L (10.0-12.5) sec INR 0.9 (<1.2) APTT 22.2 (22.0-30.0) sec Sodium (137-145) mmol/L Potassium (3.5-5.1) mmol/L Chloride (98-107) mmol/L Carbon Dioxide (22-30) mmol/L Anion Gap mmol/L BUN (9-20) mg/dL Creatinine (0.66-1.25) mg/dL Est GFR (CKD-EPI)AfAm (>60 ml/min/1.73 sqM) Est GFR (CKD-EPI)NonAf (>60 ml/min/1.73 sqM) Glucose (74-99) mg/dL POC Glucose (mg/dL) 120 H (70-110) mg/dL POC Glu Porcel[employer] Buildup Assistant ID Shalonda Calles Calcium (8.4-10.2) mg/dL Magnesium (1.6-2.3) mg/dL Total Bilirubin (0.2-1.3) mg/dL AST (17-59) U/L ALT (4-49) U/L Alkaline Phosphatase (38-126) U/L Troponin I (0.000-0.034) ng/mL Total Protein (6.3-8.2) g/dL Albumin (3.5-5.0) g/dL Lipase (23-300) U/L 12/30/24 12/30/24 Range/Units 02:10 02:10 WBC (4.50-10.00) 10*3/uL RBC (4.40-5.60) 10*6/uL Hgb (13.0-17.0) g/dL Hct (39.6-50.0) % MCV (80.0-97.0) fL MCH (27.0-32.0) pg MCHC (32.0-37.0) g/dL Plt Count (140-440) 10*3/uL MPV (9.5-12.2) fL Immature Gran % (Auto) % Neutrophils % % Lymphocytes % % Monocytes % % Eosinophils % % Basophils % % Immature Gran # (0.00-0.04) 10*3/uL Neutrophils # (1.80-7.70) 10*3/uL Lymphocytes # (0.90-5.00) 10*3/uL Monocytes # (0.20-1.00) 10*3/uL Eosinophils # (0.04-0.35) 10*3/uL Basophils # (0.00-0.10) 10*3/uL PT (10.0-12.5) sec INR (<1.2) APTT (22.0-30.0) sec Sodium 139 (137-145) mmol/L Potassium 4.1 (3.5-5.1) mmol/L Chloride 105 (98-107) mmol/L Carbon Dioxide 20 L (22-30) mmol/L Anion Gap 14 mmol/L BUN 10 (9-20) mg/dL Creatinine 0.88 (0.66-1.25) mg/dL Est GFR (CKD-EPI)AfAm >90 (>60 ml/min/1.73 sqM) Est GFR (CKD-EPI)NonAf >90 (>60 ml/min/1.73 sqM) Glucose 117 H (74-99) mg/dL POC Glucose (mg/dL) (70-110) mg/dL POC Glu Porcelain Buildup Assistant ID Calcium 9.6 (8.4-10.2) mg/dL Magnesium 2.2 (1.6-2.3) mg/dL Total Bilirubin 0.4 (0.2-1.3) mg/dL AST 25 (17-59) U/L ALT 12 (4-49) U/L Alkaline Phosphatase 69 (38-126) U/L Troponin I <0.012 (0.000-0.034) ng/mL Total Protein 7.1 (6.3-8.2) g/dL Albumin 4.3 (3.5-5.0) g/dL Lipase 98 (23-300) U/L - EKG Data -: EKG Interpreted by Me EKG Comments: 12-lead Electrocardiogram Interpretation Note EKG was reviewed and interpreted by myself. 12-lead ECG performed at 0159 is interpreted by me as revealing normal sinus rhythm at a rate of 87 beats per minute. Left axis deviation. NV interval is 147 ms, QRS duration is 94 ms, QTc is 424 ms... There were no ST or T wave abnormalities to suggest myocardial ischemia or injury. R wave progression across the precordium was satisfactory. By my interpretation this EKG is non-diagnostic for acute ischemia. Disposition Clinical Impression: Chest pain Disposition: ADMITTED IP TO THIS HOSP Condition: Stable Is patient prescribed a controlled substance at d/c from ED?: No Time of Disposition: 04:00
--- NOTE | 2024-12-30 04:55 | XR ---
EXAM: XR Chest, 2 Views CLINICAL HISTORY: ITS.REASON XR Reason: Chest Pain TECHNIQUE: Frontal and lateral views of the chest. COMPARISON: X-ray dated 09/01/2024. FINDINGS: Lungs: Unremarkable. No consolidation. Pleural space: Unremarkable. No pneumothorax. Heart: Unremarkable. No cardiomegaly. Mediastinum: Unremarkable. Normal mediastinal contour. Bones/joints: Degenerative changes are seen within the spine and shoulders. No acute fracture. IMPRESSION: No acute findings in the chest.
[2024-12-30] MEDS: NITROGLYCERIN OINT 1 INCH/GM PACKET TOPICAL SCH (05:41)
[2024-12-30] MEDS: SODIUM CHLORIDE 0.9% 1,000 ML IV SCH (05:43)
[2024-12-30 06:16] LABS: Appearance,Urine Clear (Clear); Bilirubin,Urine Negative (Negative); Blood,Urine Negative (Negative); Color,Urine Light Yellow; Glucose,Urine (UA) 4+ (Negative); Ketones,Urine Negative (Negative); Leukocyte Esterase,Urine Negative (Negative); Nitrite,Urine Negative (Negative); PH, Urine 5.5 (5.0-8.0); Protein,Urine Negative (Negative); Specific Gravity,Urine 1.025 (1.001-1.035); Urobilinogen,Urine <2.0 mg/dL (<2.0)
[2024-12-30] MEDS: HEPARIN SODIUM,PORCINE 5,000 UNIT/ML 1 ML VIAL SQ SCH (08:50)
--- NOTE | 2024-12-30 10:40 | P.HPIM ---
History of Present Illness 59-year-old male with history of coronary disease multiple stents in the past with complaints of chest pain which started yesterday lasted for few minutes radiating to the neck substernal it similar to the chest pain when he had a hear t attack. Patient denied any diaphoresis denies any, does not get worse with the exertion. Patient had recent cardiac catheterization at [facility] by his primary digital developer and one of the stent is slightly blocked but did not require any intervention at that time. Patient had any fever chills nausea vomiting dysuria. EKG showed nonspecific T wave changes chest x-ray is within normal limits.-Chest pain will rule out acute coronary syndromes troponins are negative REVIEW OF SYSTEMS: All other systems are negative except those mentioned in the HPI PHYSICAL EXAMINATION: GENERAL: The patient is alert and oriented x3, not in any acute distress. Well developed, well nourished. HEENT: Pupils are round and equally reacting to light. EOMI. No scleral icterus. No conjunctival pallor. Normocephalic, atraumatic. No pharyngeal erythema. No thyromegaly. CARDIOVASCULAR: S1 and S2 present. No murmurs, rubs, or gallops. PULMONARY: Chest is clear to auscultation, no wheezing or crackles. ABDOMEN: Soft, nontender, nondistended, normoactive bowel sounds. No palpable organomegaly. MUSCULOSKELETAL: No joint swelling or deformity. EXTREMITIES: No cyanosis, clubbing, or pedal edema. NEUROLOGICAL: Gross neurological examination did not reveal any focal deficits. SKIN: No rashes. Assessment and plan Chest pain: Ruled out acute coronary syndromes. Cardiology will evaluate the patient patient had a cardiac catheterization at [facility] will obtain medical records from there - Asthma without any acute exacerbation - Type II disorders - Hyperlipidemia - Sleep apnea Problem mention chronic medical problems patient will be resumed on appropriate home medications once verified DVT prophylaxis: Patient is on subcutaneous heparin at this time Past Medical History Past Medical History: Asthma, Coronary Artery Disease (CAD), Chest Pain / Angina, COPD, Diabetes Mellitus, GERD/Reflux, Hyperlipidemia, Myocardial Infarction ([place]), Sleep Apnea/CPAP/BIPAP, Syncope Additional Past Medical History / Comment(s): 6 stents and 8 heart caths, bilateral cataracts, hypotension,divericulitis Last Myocardial Infarction Date:: 2022 History of Any Multi-Drug Resistant Organisms: None Reported Past Surgical History: Appendectomy, Bowel Resection, Heart Catheterization With Stent, Hernia Repair, Tonsillectomy Additional Past Surgical History / Comment(s): right knee, right forearm. left facial reconstruction, bilateral henia sx, partial left colon removed Past Anesthesia/Blood Transfusion Reactions: No Reported Reaction Date of Last Stent Placement:: 06/2024 Past Psychological History: ADD/ADHD, Anxiety, Bipolar, Depression Smoking Status: Former smoker Past Alcohol Use History: None Reported Past Drug Use History: None Reported - Past Family History Father Family Medical History: Cancer Additional Family Medical History / Comment(s): brain cancer Mother Family Medical History: Congestive Heart Failure (CHF) Medications and Allergies Home Medications Medication Instructions Recorded Confirmed Type ARIPiprazole [Abilify] 2 mg PO HS 08/15/24 08/15/24 History Clopidogrel [Plavix] 75 mg PO DAILY 08/15/24 08/15/24 History Colchicine [Colcrys] 0.6 mg PO DAILY 08/15/24 08/15/24 History Empagliflozin [Jardiance] 10 mg PO DAILY 08/15/24 08/15/24 History Fenofibrate [Lofibra] 54 mg PO DAILY 30 Days #30 tab 08/15/24 Rx Fludrocortisone [Florinef] 0.1 mg PO DAILY 30 Days #30 tab 08/15/24 Rx Metoprolol Succinate (ER) [Toprol 25 mg PO DAILY 08/15/24 08/15/24 History XL] Mometasone/Formoterol [Dulera 200 2 puff INHALATION RT-BID 08/15/24 08/15/24 History Mcg-5 Mcg Inhaler] Pregabalin [Lyrica] 200 mg PO BID 08/15/24 08/15/24 History Ranolazine [Ranexa] 1,000 mg PO BID 08/15/24 08/15/24 History Rosuvastatin Calcium [Crestor] 40 mg PO DAILY 08/15/24 08/15/24 History Sertraline [Zoloft] 100 mg PO DAILY 08/15/24 08/15/24 History Ziprasidone [Geodon] 80 mg PO DAILY 08/15/24 08/15/24 History busPIRone HCL 15 mg PO TID 08/15/24 08/15/24 History metFORMIN HCL ER [Glucophage XR] 500 mg PO W/SUPPER 08/15/24 08/15/24 History Allergies Allergy/AdvReac Type Severity Reaction Status Date / Time codeine Allergy Rash/Hives Verified 12/30/24 01:43 Physical Exam Vitals: Vital Signs Temp Pulse Resp BP Pulse Ox 12/30/24 09:00 84 18 144/97 98 12/30/24 06:00 80 16 142/86 94 L 12/30/24 05:00 85 16 137/80 94 L 12/30/24 04:00 82 16 137/89 98 12/30/24 03:00 89 16 129/87 97 12/30/24 01:38 98 F 89 18 133/78 98 Intake and Output 12/29/24 12/30/24 12/30/24 22:59 06:59 14:59 Other: Weight 55.792 kg Results CBC & Chem 7: 12/30/24 02:10 12/30/24 02:10 Labs: Abnormal Lab Results - Last 24 Hours (Table) 12/30/24 12/30/24 12/30/24 Range/Units 02:10 02:10 02:10 RBC 4.10 L (4.40-5.60) 10*6/uL Hgb 10.7 L (13.0-17.0) g/dL Hct 33.1 L (39.6-50.0) % MCH 26.1 L (27.0-32.0) pg Immature Gran # 0.05 H (0.00-0.04) 10*3/uL PT 9.8 L (10.0-12.5) sec Carbon Dioxide (22-30) mmol/L Glucose (74-99) mg/dL POC Glucose (mg/dL) 120 H (70-110) mg/dL Urine Glucose (UA) (Negative) 12/30/24 12/30/24 Range/Units 02:10 05:45 RBC (4.40-5.60) 10*6/uL Hgb (13.0-17.0) g/dL Hct (39.6-50.0) % MCH (27.0-32.0) pg Immature Gran # (0.00-0.04) 10*3/uL PT (10.0-12.5) sec Carbon Dioxide 20 L (22-30) mmol/L Glucose 117 H (74-99) mg/dL POC Glucose (mg/dL) (70-110) mg/dL Urine Glucose (UA) 4+ H (Negative)
--- NOTE | 2024-12-30 12:10 | P.CRDCN ---
History of Present Illness Consult date: 12/30/24 History of present illness: HISTORY OF PRESENTING ILLNESS: 59-year-old known to Dr. Piña. Past medical history of multiple PCI. Had a heart catheterization 1 month ago for stable angina symptoms. He was told that he had some in-stent disease which was in moderate range but no intervention was performed. This time he presented to the hospital because of substernal chest heaviness along with epigastric discomfort. He is also reporting that his epigastric pain is getting worse after eating and he has been eating less and losing weight. At the time of evaluation his substernal chest heaviness was resolved but he was still having some epigastric discomfort. Admission ECG shows sinus rhythm with nonspecific ST changes but does not seem concerning of acute ischemia Chest x-ray does not show any significant signs of congestion or consolidation or congestive heart failure BP 144/97, heart rate 84 REVIEW OF SYSTEMS: 14 point review of system is negative except what is mentioned above in HPI. PHYSICAL EXAMINATION: Neck: Brisk carotid upstroke, no jugular venous distention. Lungs: Clear to auscultation. Heart: Regular rate and rhythm, S1-S2, , no murmur or rub. Abdomen: Soft mild epigastric tenderness, positive bowel sounds. Extremities: No edema, intact distal pulses. Neuro: Alert, oritented, no focal deficits. Detailed neuro exam was not perform ed. ASSESSMENT: # Atypical chest pain, ACS has been ruled out # Stable angina with prior history of multiple PCI. Last heart cath 1 month ago showed moderate in-stent disease with no intervention done # Essential hypertension # Dyslipidemia # Epigastric discomfort with some reproducibility on palpation. # Poor appetite because of postprandial pain and abdominal along with weight loss PLAN: Continue aspirin Plavix Lipitor Optimize antianginals. Continue keep him on metoprolol succinate 25 daily, add amlodipine 5 mg daily, Imdur 30 mg daily. He is on Ranexa 100 mg twice daily because of epigastric discomfort I will reduce the dose to 500 twice daily for now. Increase Ranexa eventually once abdominal pain /discomfort resolves Obtain updated echo Monitor blood pressure on current regimen. If BP is low, reduce amlodipine to half and Imdur to half If echo does not show significant cardiomyopathy or wall motion abnormality he is cleared from cardiovascular standpoint. Would recommend outpatient follow-up with Dr. Piña. Matias Hickman MD, FACC, RPVI Thank you for allowing [facility] to participate in this patient's care. Feel free to reach out in case of any followup questions. Past Medical History Past Medical History: Asthma, Coronary Artery Disease (CAD), Chest Pain / Angina, COPD, Diabetes Mellitus, GERD/Reflux, Hyperlipidemia, Myocardial Infarction (CO), Sleep Apnea/CPAP/BIPAP, Syncope Additional Past Medical History / Comment(s): 6 stents and 8 heart caths, bilateral cataracts, hypotension,divericulitis Last Myocardial Infarction Date:: 2022 History of Any Multi-Drug Resistant Organisms: None Reported Past Surgical History: Appendectomy, Bowel Resection, Heart Catheterization With Stent, Hernia Repair, Tonsillectomy Additional Past Surgical History / Comment(s): right knee, right forearm. left facial reconstruction, bilateral henia sx, partial left colon removed Past Anesthesia/Blood Transfusion Reactions: No Reported Reaction Date of Last Stent Placement:: 06/2024 Past Psychological History: ADD/ADHD, Anxiety, Bipolar, Depression Smoking Status: Former smoker Past Alcohol Use History: None Reported Past Drug Use History: None Reported - Past Family History Father Family Medical History: Cancer Additional Family Medical History / Comment(s): brain cancer Mother Family Medical History: Congestive Heart Failure (CHF) Medications and Allergies Home Medications Medication Instructions Recorded Confirmed Type ARIPiprazole [Abilify] 2 mg PO HS 08/15/24 12/30/24 History Clopidogrel [Plavix] 75 mg PO DAILY 08/15/24 12/30/24 History Empagliflozin [Jardiance] 10 mg PO DAILY 08/15/24 12/30/24 History Fenofibrate [Lofibra] 54 mg PO DAILY 30 Days #30 tab 08/15/24 12/30/24 Rx Metoprolol Succinate (ER) [Toprol 25 mg PO DAILY 08/15/24 12/30/24 History XL] Mometasone/Formoterol [Dulera 200 2 puff INHALATION RT-BID 08/15/24 12/30/24 Hi story Mcg-5 Mcg Inhaler] Ranolazine [Ranexa] 1,000 mg PO BID 08/15/24 12/30/24 History Sertraline [Zoloft] 100 mg PO DAILY 08/15/24 12/30/24 History Ziprasidone [Geodon] 80 mg PO HS 08/15/24 12/30/24 History busPIRone HCL 15 mg PO QID 08/15/24 12/30/24 History metFORMIN HCL ER [Glucophage XR] 500 mg PO W/SUPPER 08/15/24 12/30/24 History Fludrocortisone [Florinef] 0.1 mg PO W/BRKFST 12/30/24 12/30/24 History Omeprazole [PriLOSEC] 40 mg PO DAILY 12/30/24 12/30/24 History Ziprasidone [Geodon] 20 mg PO HS 12/30/24 12/30/24 History diphenhydrAMINE [Benadryl] 50 mg PO HS 12/30/24 12/30/24 History Allergies Allergy/AdvReac Type Severity Reaction Status Date / Time codeine Allergy Rash/Hives Verified 12/30/24 10:54 Physical Exam Vitals: Vital Signs Temp Pulse Resp BP Pulse Ox 12/30/24 09:00 84 18 144/97 98 12/30/24 06:00 80 16 142/86 94 L 12/30/24 05:00 85 16 137/80 94 L 12/30/24 04:00 82 16 137/89 98 12/30/24 03:00 89 16 129/87 97 12/30/24 01:38 98 F 89 18 133/78 98 Intake and Output 12/29/24 12/30/24 12/30/24 22:59 06:59 14:59 Other: Weight 55.792 kg Results 12/30/24 02:10 12/30/24 02:10 Cardiac Enzymes 12/30/24 12/30/24 12/30/24 Range/Units 02:10 02:10 05:48 AST 25 (17-59) U/L Troponin I <0.012 <0.012 (0.000-0.034) ng/mL 12/30/24 Range/Units 09:48 AST (17-59) U/L Troponin I <0.012 (0.000-0.034) ng/mL Coagulation 12/30/24 Range/Units 02:10 PT 9.8 L (10.0-12.5) sec APTT 22.2 (22.0-30.0) sec CBC 12/30/24 Range/Units 02:10 WBC 6.05 (4.50-10.00) 10*3/uL RBC 4.10 L (4.40-5.60) 10*6/uL Hgb 10.7 L (13.0-17.0) g/dL Hct 33.1 L (39.6-50.0) % Plt Count 342 (140-440) 10*3/uL Comprehensive Metabolic Panel 12/30/24 Range/Units 02:10 Sodium 139 (137-145) mmol/L Potassium 4.1 (3.5-5.1) mmol/L Chloride 105 (98-107) mmol/L Carbon Dioxide 20 L (22-30) mmol/L BUN 10 (9-20) mg/dL Creatinine 0.88 (0.66-1.25) mg/dL Glucose 117 H (74-99) mg/dL Calcium 9.6 (8.4-10.2) mg/dL AST 25 (17-59) U/L ALT 12 (4-49) U/L Alkaline Phosphatase 69 (38-126) U/L Total Protein 7.1 (6.3-8.2) g/dL Albumin 4.3 (3.5-5.0) g/dL Current Medications Generic Name Dose Route Start Last Admin Trade Name Freq PRN Reason Stop Dose Admin Amlodipine Besylate 5 mg 12/30/24 12:15 Amlodipine 5 Mg Tab PO DAILY [facility] Aspirin 81 mg 12/30/24 12:15 Aspirin 81 Mg PO DAILY [facility] Clopidogrel Bisulfate 75 mg 12/30/24 12:15 Clopidogrel 75 Mg Tab PO DAILY [facility] Dapagliflozin 10 mg 12/30/24 12:15 Dapagliflozin Propanediol 10 Mg Tablet PO DAILY [facility] Heparin Sodium (Porcine) 5,000 unit 12/30/24 08:00 12/30/24 08:50 Heparin Sodium,Porcine 5,000 Unit/Ml 1 Ml Vial SQ 5,000 unit Q8HR RENAN Administration Sodium Chloride 1,000 mls @ 75 mls/hr 12/30/24 04:00 12/30/24 05:43 Saline 0.9% IV 75 mls/hr .[id number] RENAN Administration Isosorbide Mononitrate 30 mg 12/30/24 12:15 Isosorbide Mononitrate Er 30 Mg Tab.Er.24h PO DAILY [facility] Metoprolol Succinate 25 mg 12/30/24 12:15 Metoprolol Succinate (Er) 25 Mg Tab.Er.24h PO DAILY [facility] Naloxone HCl 0.2 mg 12/30/24 04:00 Naloxone 0.4 Mg/Ml 1 Ml Vial IV Q2M PRN Opioid Reversal Nitroglycerin 0.5 inch 12/30/24 04:00 12/30/24 08:50 Nitroglycerin Oint 1 Inch/Gm Packet TOPICAL 0.5 inch Q8HR RENAN Administration Ondansetron HCl 4 mg 12/30/24 04:00 Ondansetron 4 Mg/2 Ml Vial IVP Q8HR PRN Nausea And Vomiting Intake and Output 12/29/24 12/30/24 12/30/24 22:59 06:59 14:59 Other: Weight 55.792 kg 12/30/24 02:10 12/30/24 02:10
[2024-12-30] MEDS ORDERED: amLODIPine 5 MG TAB PO SCH (12:15)
[2024-12-30] MEDS ORDERED: ASPIRIN 81 MG PO SCH (12:15)
[2024-12-30] MEDS ORDERED: ISOSORBIDE MONONITRATE ER 30 MG TAB.ER.24H PO SCH (12:15)
[2024-12-30] MEDS ORDERED: METOPROLOL SUCCINATE (ER) 25 MG TAB.ER.24H PO SCH (12:15)
[2024-12-30] MEDS ORDERED: CLOPIDOGREL 75 MG TAB PO SCH (12:15)
[2024-12-30] MEDS ORDERED: DAPAGLIFLOZIN PROPANEDIOL 10 MG TABLET PO SCH (12:15)
[2024-12-30] MEDS ORDERED: RANOLAZINE 500 MG TAB.ER.12H PO SCH (12:15)
[2024-12-30] MEDS: PANTOPRAZOLE 40 MG/10 ML VIAL IVP SCH (12:42)
[2024-12-30 12:52] VITALS: BP 155/95; PULSE 90; RESP 18
--- NOTE | 2024-12-30 12:54 | P.DS ---
Providers Date of admission: 12/30/24 04:00 Attending physician: Mal Clifford Consults: 12/30/24 04:00 Consult Physician Routine Consulting Provider: [facility] Consult Reason/Comments: chest pain Do you want consulting provider notified?: Yes Primary care physician: Sima Mcqueen DO Hospital Course: 59-year-old male with history of coronary disease multiple stents in the past with complaints of chest pain which started yesterday lasted for few minutes radiating to the neck substernal it similar to the chest pain when he had a heart attack. Patient denied any diaphoresis denies any, does not get worse with the exertion. Patient had recent cardiac catheterization at [facility] by his primary card cleaner and one of the stent is slightly blocked but did not require any intervention at that time. Patient had any fever chills nausea vomiting dysuria. EKG showed nonspecific T wave changes chest x-ray is within normal limits.-Chest pain will rule out acute coronary syndromes troponins are negative Patient was subsequently evaluated by cardiology. Some medication changes were made. Patient had an echocardiogram which did not show any wall motion abnormalities and a normal ejection fraction. Patient is cleared from cardiology perspective although patient has symptoms of gastritis or peptic ulcer disease for which she will be discharged on Protonix patient has epigastric abdominal discomfort that worsens with eating food. Patient wanted to be discharged now as he has an appointment with case management for his homelessness. PHYSICAL EXAMINATION: GENERAL: The patient is alert and oriented x3, not in any acute distress. Well developed, well nourished. HEENT: Pupils are round and equally reacting to light. EOMI. No scleral icterus. No conjunctival pallor. Normocephalic, atraumatic. No pharyngeal erythema. No thyromegaly. CARDIOVASCULAR: S1 and S2 present. No murmurs, rubs, or gallops. PULMONARY: Chest is clear to auscultation, no wheezing or crackles. ABDOMEN: Soft, nontender, nondistended, normoactive bowel sounds. No palpable organomegaly. MUSCULOSKELETAL: No joint swelling or deformity. EXTREMITIES: No cyanosis, clubbing, or pedal edema. NEUROLOGICAL: Gross neurological examination did not reveal any focal deficits. SKIN: No rashes. Assessment and plan Chest pain: Ruled out acute coronary syndromes. Cardiology evaluated the patient and cleared for discharge - Epigastric abdominal discomfort secondary to peptic ulcer disease will be discharged on Protonix. - Asthma without any acute exacerbation - Type II disorders - Hyperlipidemia - Sleep apnea Patient Condition at Discharge: Stable Plan - Discharge Summary New Discharge Prescriptions: New Isosorbide Mononitrate ER [Imdur] 30 mg PO DAILY #30 tab Aspirin 81 mg PO DAILY #30 tab amLODIPine [Norvasc] 5 mg PO DAILY #30 tab Pantoprazole [Protonix] 40 mg PO DAILY #30 tab Continue Ziprasidone [Geodon] 80 mg PO HS Clopidogrel [Plavix] 75 mg PO DAILY ARIPiprazole [Abilify] 2 mg PO HS Ziprasidone [Geodon] 20 mg PO HS diphenhydrAMINE [Benadryl] 50 mg PO HS metFORMIN HCL ER [Glucophage XR] 500 mg PO W/SUPPER Sertraline [Zoloft] 100 mg PO DAILY Mometasone/Formoterol [Dulera 200 Mcg-5 Mcg Inhaler] 2 puff INHALATION RT-BID Metoprolol Succinate (ER) [Toprol XL] 25 mg PO DAILY Empagliflozin [Jardiance] 10 mg PO DAILY busPIRone HCL 15 mg PO QID Fenofibrate [Lofibra] 54 mg PO DAILY 30 Days #30 tab Changed Ranolazine [Ranexa] 500 mg PO BID #0 Discontinued Omeprazole [PriLOSEC] 40 mg PO DAILY Fludrocortisone [Florinef] 0.1 mg PO W/BRKFST Discharge Medication List ARIPiprazole [Abilify] 2 mg PO HS 08/15/24 [History] Clopidogrel [Plavix] 75 mg PO DAILY 08/15/24 [History] Empagliflozin [Jardiance] 10 mg PO DAILY 08/15/24 [History] Fenofibrate [Lofibra] 54 mg PO DAILY 30 Days #30 tab 08/15/24 [Rx] Metoprolol Succinate (ER) [Toprol XL] 25 mg PO DAILY 08/15/24 [History] Mometasone/Formoterol [Dulera 200 Mcg-5 Mcg Inhaler] 2 puff INHALATION RT-BID 08/15/24 [History] Sertraline [Zoloft] 100 mg PO DAILY 08/15/24 [History] Ziprasidone [Geodon] 80 mg PO HS 08/15/24 [History] busPIRone HCL 15 mg PO QID 08/15/24 [History] metFORMIN HCL ER [Glucophage XR] 500 mg PO W/SUPPER 08/15/24 [History] Aspirin 81 mg PO DAILY #30 tab 12/30/24 [Rx] Isosorbide Mononitrate ER [Imdur] 30 mg PO DAILY #30 tab 12/30/24 [Rx] Pantoprazole [Protonix] 40 mg PO DAILY #30 tab 12/30/24 [Rx] Ranolazine [Ranexa] 500 mg PO BID #0 12/30/24 [Rx] Ziprasidone [Geodon] 20 mg PO HS 12/30/24 [History] amLODIPine [Norvasc] 5 mg PO DAILY #30 tab 12/30/24 [Rx] diphenhydrAMINE [Benadryl] 50 mg PO HS 12/30/24 [History] Follow up Appointment(s)/Referral(s): Sima Mcqueen DO [Primary Care Provider] - 1-2 days Patient Instructions/Handouts: Chest Pain (ED) Activity/Diet/Wound Care/Special Instructions: Follow-up with Dr. Piña Discharge Disposition: HOME SELF-CARE
== END 2024-12-30 17:39 | disposition home or self-care (01) ==
LOC: EC 01:32 → 6NMEDSUR 04:00
PROVIDERS: ADMIT Hospitalist; ATTEND Hospitalist
DX: R07.89 Other chest pain (principal); I25.118 Atherosclerotic heart disease of native coronary artery with other forms of angina pectoris; I10 Essential (primary) hypertension; E78.5 Hyperlipidemia, unspecified; R10.13 Epigastric pain; R63.4 Abnormal weight loss; R63.0 Anorexia; E11.9 Type 2 diabetes mellitus without complications; J44.89 Other specified chronic obstructive pulmonary disease; F31.9 Bipolar disorder, unspecified; F41.9 Anxiety disorder, unspecified; G47.30 Sleep apnea, unspecified; Z68.1 Body mass index [BMI] 19.9 or less, adult; Z87.891 Personal history of nicotine dependence; Z95.5 Presence of coronary angioplasty implant and graft; Z79.02 Long term (current) use of antithrombotics/antiplatelets; Z79.51 Long term (current) use of inhaled steroids; Z79.52 Long term (current) use of systemic steroids; Z79.84 Long term (current) use of oral hypoglycemic drugs; Z79.899 Other long term (current) drug therapy; Z88.5 Allergy status to narcotic agent; Z82.49 Family history of ischemic heart disease and other diseases of the circulatory system
CPT/HCPCS: 96372; 96374; 99285; 36415; 93005; 80053; 83690; 83735; 84484; 85025; 85610; 85730; 81003; 71046; G0378; J1644; J2470

== ENCOUNTER 2025-01-14 20:36 | Emergency (ER) | payer MEDICARE, OTHER ==
[2025-01-14] MEDS: HYDROmorphone 1 MG/ML 1 ML SYRINGE IVP STA ×2 (21:18→22:05)
--- NOTE | 2025-01-14 21:21 | XR ---
EXAMINATION TYPE: XR knee complete RT, XR tibia fibula RT DATE OF EXAM: 01/14/2025 9:09 PM INDICATION: Patient age:Male; 59 years old; Reason for study: Fall; [facility]. pain COMPARISON: None. TECHNIQUE: The Right knee(s) was examined in Frontal, lateral and oblique projections. The right tibi a/fibula was examined in frontal and lateral projections. FINDINGS: Limited examination due to poor positioning of the knee. No evidence of any acute osseous pathology, soft tissue swelling, or joint effusion is noted. Vascular sclerosis. No radiopaque foreig n body. No osseous erosions. No periosteal reaction. IMPRESSION: No acute osseous pathology. [facility], , 01/14/2025 9:18 PM
--- NOTE | 2025-01-14 21:25 | ED ---
Lower Extremity Injury HPI - General Source: patient, EMS, RN notes reviewed Mode of arrival: EMS Limitations: physical limitation - History of Present Illness MD Complaint: knee injury <Sonam Schofield - Last Filed: 01/14/25 23:51> - General Source: patient, EMS, RN notes reviewed Mode of arrival: EMS Limitations: physical limitation - History of Present Illness MD Complaint: knee injury Onset/Timin -: days(s) <Avila Hinds - Last Filed: 01/15/25 01:46> - General Chief Complaint: Fall Stated Complaint: fall; knee pain Time Seen by Provider: 01/14/25 20:42 - History of Present Illness Initial Comments: This is a 59-year-old male who presents to the emergency department for right leg pain. Patient usually uses a cane or walker for ambulation, however he was not using it earlier today and in the process ended up losing his balance and falling. He landed on his legs and injured his right knee. He has since had pain to this area and states that he is unable to move it. Denies hitting his head or any LOC. He does have several superficial abrasions. Tetanus vaccine is up-to-date. (Sonam Schofield) - Related Data Home Medications Medication Instructions Recorded Confirmed ARIPiprazole [Abilify] 2 mg PO HS 08/15/24 12/30/24 Clopidogrel [Plavix] 75 mg PO DAILY 08/15/24 12/30/24 Empagliflozin [Jardiance] 10 mg PO DAILY 08/15/24 12/30/24 Metoprolol Succinate (ER) [Toprol 25 mg PO DAILY 08/15/24 12/30/24 XL] Mometasone/Formoterol [Dulera 200 2 puff INHALATION RT-BID 08/15/24 12/30/24 Mcg-5 Mcg Inhaler] Sertraline [Zoloft] 100 mg PO DAILY 08/15/24 12/30/24 Ziprasidone [Geodon] 80 mg PO HS 08/15/24 12/30/24 busPIRone HCL 15 mg PO QID 08/15/24 12/30/24 metFORMIN HCL ER [Glucophage XR] 500 mg PO W/SUPPER 08/15/24 12/30/24 Ziprasidone [Geodon] 20 mg PO HS 12/30/24 12/30/24 diphenhydrAMINE [Benadryl] 50 mg PO HS 12/30/24 12/30/24 Previous Rx's Medication Instructions Recorded Fenofibrate [Lofibra] 54 mg PO DAILY 30 Days #30 tab 08/15/24 Aspirin 81 mg PO DAILY #30 tab 12/30/24 Isosorbide Mononitrate ER [Imdur] 30 mg PO DAILY #30 tab 12/30/24 Pantoprazole [Protonix] 40 mg PO DAILY #30 tab 12/30/24 Ranolazine [Ranexa] 500 mg PO BID #0 12/30/24 amLODIPine [Norvasc] 5 mg PO DAILY #30 tab 12/30/24 Cyclobenzaprine [Flexeril] 10 mg PO TID PRN #15 tab 01/15/25 Allergies Allergy/AdvReac Type Severity Reaction Status Date / Time codeine Allergy Rash/Hives Verified 01/14/25 20:44 Review of Systems ROS Other: All systems not noted in ROS Statement are negative. <Sonam Schofield - Last Filed: 01/14/25 23:51> ROS Other: All systems not noted in ROS Statement are negative. <Avila Hinds - Last Filed: 01/15/25 01:46> ROS Statement: Those systems with pertinent positive or pertinent negative responses have been documented in the HPI. Past Medical History Past Medical History: Asthma, Coronary Artery Disease (CAD), Chest Pain / Angina, COPD, Diabetes Mellitus, GERD/Reflux, Hyperlipidemia, Myocardial Infar ction (NM), Sleep Apnea/CPAP/BIPAP, Syncope Additional Past Medical History / Comment(s): 6 stents and 8 heart caths, bilateral cataracts, hypotension,divericulitis Last Myocardial Infarction Date:: 2022 History of Any Multi-Drug Resistant Organisms: None Reported Past Surgical History: Appendectomy, Bowel Resection, Heart Catheterization With Stent, Hernia Repair, Tonsillectomy Additional Past Surgical History / Comment(s): right knee, right forearm. left facial reconstruction, bilateral henia sx, partial left colon removed Past Anesthesia/Blood Transfusion Reactions: No Reported Reaction Date of Last Stent Placement:: 06/2024 Past Psychological History: ADD/ADHD, Anxiety, Bipolar, Depression Smoking Status: Former smoker Past Alcohol Use History: None Reported Past Drug Use History: None Reported - Past Family History Father Family Medical History: Cancer Additional Family Medical History / Comment(s): brain cancer Mother Family Medical History: Congestive Heart Failure (CHF) <RavijaneJackieSonam - Last Filed: 01/14/25 23:51> General Exam Limitations: physical limitation General appearance: alert, in no apparent distress Head exam: Present: atraumatic, normocephalic, normal inspection Respiratory exam: Present: normal lung sounds bilaterally. Absent: respiratory distress, wheezes, rales, rhonchi, stridor Cardiovascular Exam: Present: regular rate, normal rhythm Extremities exam: Present: other (Superficial abrasion over the right patella with surrounding ecchymosis and tenderness. Range of motion limited by pain. 2+ DP and PT pulses) Neurological exam: Present: alert, oriented X3, CN II-XII intact Psychiatric exam: Present: normal affect, normal mood <Snoam Schofield - Last Filed: 01/14/25 23:51> General appearance: alert, in no apparent distress Head exam: Present: atraumatic, normocephalic, normal inspection Eye exam: Present: normal appearance, PERRL, EOMI. Absent: scleral icterus, conjunctival injection, periorbital swelling ENT exam: Present: normal exam, mucous membranes moist Neck exam: Present: normal inspection. Absent: tenderness, meningismus, lymphadenopathy Respiratory exam: Present: normal lung sounds bilaterally. Absent: respiratory distress, wheezes, rales, rhonchi, stridor Cardiovascular Exam: Present: regular rate, normal rhythm, normal heart sounds. Absent: systolic murmur, diastolic murmur, rubs, gallop, clicks GI/Abdominal exam: Present: soft, normal bowel sounds. Absent: distended, tenderness, guarding, rebound, rigid Extremities exam: Present: normal inspection, full ROM, normal capillary refill, other. Absent: tenderness, pedal edema, joint swelling, calf tenderness Back exam: Present: normal inspection Neurological exam: Present: alert, oriented X3, CN II-XII intact Psychiatric exam: Present: normal affect, normal mood Skin exam: Present: warm, dry, intact, normal color. Absent: rash <Avila Hinds - Last Filed: 01/15/25 01:46> Course Vital Signs 01/14/25 01/14/2525 20:36 21:56 00:11 Temperature 98.4 F Pulse Rate 89 93 87 Respiratory 19 19 18 Rate Blood Pressure 136/83 144/88 124/80 O2 Sat by Pulse 100 97 98 Oximetry Medical Decision Making - Radiology Data Radiology results: report reviewed, image reviewed <Sonam Schofield - Last Filed: 01/14/25 23:51> <Avila Hinds - Last Filed: 01/15/25 01:46> - Medical Decision Making This is a 59-year-old male who presents to the emergency department for right knee pain. Was pt. sent in by a medical professional or institution? @ -No Did you speak to anyone other than the patient for history? @ -No Did you review nursing and triage notes? @ -Yes, and I agree, it is accurate with regards to the patient's symptoms. Were old charts reviewed? @ -No Differential Diagnosis? @ -Differential Musculoskeletal Muscular strain, contusion, ligament sprain, fracture, arthritis, septic arthritis, bursitis, cellulitis, muscle spasm, nerve compression, DVT, arterial occlusion, herpes zoster, electrolyte abnormality, tumor.... This is not meant to be in all inclusive list EKG interpreted by me (3pts min.)? @ -Not obtained X-rays interpreted by me (1pt min.)? @ -X-ray of the right knee and femur obtained. My interpretation identifies no acute fractures. CT interpreted by me (1pt min.)? @ -Pending U/S interpreted by me (1pt. min.)? @ -Not obtained What testing was considered but not performed? (CT, X-rays, U/S, labs)? Why? @ -None What meds were considered but not given? Why? @ -None Did you discuss the management of the patient with other professionals? @ -No Did you reconcile home meds? @ -No Was smoking cessation discussed for >3mins.? @ -No Was critical care preformed (if so, how long)? @ -No Were there social determinants of health that impacted care today? How? (Homelessness, low income, unemployed, alcoholism, drug addiction, transpo rtation, low edu. Level, literacy, decrease access to med. care, senior living, rehab)? @ -No Was there de-escalation of care discussed even if they declined? (Discuss DNR or withdrawal of care, Hospice)? @ -No What co-morbidities impacted this encounter? (DM, HTN, Smoking, COPD, CAD, Cancer, CVA, Hep., AIDS, mental health diagnosis, sleep apnea, morbid obesity)? @ -Instability Was patient admitted / discharged? @ -X-ray of the right knee and femur obtained revealing no acute osseous abnormality. However, he continued to be in severe pain with an inability to move the leg. CT scan of the knee subsequently obtained. Tetanus vaccine was already up-to-date. The abrasions on his knee were superficial and no repair was indicated. Case signed out to Avila Hinds PA-C, at shift completion pending CT scan results and disposition. Undiagnosed new problem with uncertain prognosis? @ -None Drug Therapy requiring intensive monitoring for toxicity (Heparin, Nitro, Insulin, Cardizem)? @ -None Were any procedures done? @ -None (Sonam Schofield) Was pt. sent in by a medical professional or institution (BRAD Hernandez, ANIMAL NURSERY WORKER, urgent care, hospital, or group home...) When possible be specific @ -[No] Did you speak to anyone other than the patient for history (EMS, parent, family, police, friend...)? What history was obtained from this source @ -[No] Did you review nursing and triage notes (agree or disagree)? Why? @ -[I reviewed and agree with nursing and triage notes] Were old charts reviewed (outside hosp., previous admission, EMS record, old EKG, old radiological studies, urgent care reports/EKG's, group home records)? Report findings @ -[No old charts were reviewed] Differential Diagnosis (chest pain, altered mental status, abdominal pain women, abdominal pain men, vaginal bleeding, weakness, fever, dyspnea, syncope, headache, dizziness, GI bleed, back pain, seizure, CVA, palpatations, mental health, musculoskeletal)? @ -Differential Musculoskeletal Muscular strain, contusion, ligament sprain, fracture, arthritis, septic arthritis, bursitis, cellulitis, muscle spasm, nerve compression, DVT, arterial occlusion, herpes zoster, electrolyte abnormality, tumor.... This is not meant to be in all inclusive list EKG interpreted by me (3pts min.). @ -Not done X-rays interpreted by me (1pt min.). @ -[None done] CT interpreted by me (1pt min.). @ -[None done] U/S interpreted by me (1pt. min.). @ -[None done] What testing was considered but not performed or refused? (CT, X-rays, U/S, labs)? Why? @ -[None] What meds were considered but not given or refused? Why? @ -[None] Did you discuss the management of the patient with other professionals (professionals i.e. , PA, ANIMAL NURSERY WORKER, lab, RT, psych nurse, manager social work, sports lawyer, teacher, boat officer, top case assembler)? Give summary @ -[No] Was smoking cessation discussed for >3mins.? @ -[No] Was critical care preformed (if so, how long)? @ -[No] Were there social determinants of health that impacted care today? How? (Homelessness, low income, unemployed, alcoholism, drug addiction, transportation, low edu. Level, literacy, decrease access to med. care, senior living, rehab)? @ -[No] Was there de-escalation of care discussed even if they declined (Discuss DNR or withdrawal of care, Hospice)? DNR status @ -[No] What co-morbidities impacted this encounter? (DM, HTN, Smoking, COPD, CAD, Cancer, CVA, ARF, Chemo, Hep., AIDS, mental health diagnosis, sleep apnea, morbid obesity)? @ -[None] Was patient admitted / discharged? Hospital course, mention meds given and route, prescriptions, significant lab abnormalities, going to OR and other pertinent info. @ -[hospital course] Undiagnosed new problem with uncertain prognosis? @ -[No] Drug Therapy requiring intensive monitoring for toxicity (Heparin, Nitro, Insulin, Cardizem)? @ -[No] Were any procedures done? @ -[No] Diagnosis/symptom? @ -Tibial metaphysis fracture Acute, or Chronic, or Acute on Chronic? @ -Acute Uncomplicated (without systemic symptoms) or Complicated (systemic symptoms)? @ -Uncomplicated Side effects of treatment? @ -[No] Exacerbation, Progression, or Severe Exacerbation? @ -[No] Poses a threat to life or bodily function? How? (Chest pain, USA, NM, pneumonia, PE, COPD, DKA, ARF, appy, cholecystitis, CVA, Diverticulitis, Homicidal, Suicidal, threat to staff... and all critical care pts) @ -[No] (Avila Hinds) Disposition <Sonam Schofield - Last Filed: 01/14/25 23:51> Is patient prescribed a controlled substance at d/c from ED?: No Time of Disposition: 01:46 <GuzmanAvila - Last Filed: 01/15/25 01:46> Clinical Impression: Fall, Metaphyseal fracture of proximal end of tibia Disposition: HOME SELF-CARE Condition: Fair Instructions (If sedation given, give patient instructions): Fall Prevention for Older Adults (ED), Leg Fracture (ED) Additional Instructions: Tylenol every 4-6 hours as needed for pain. Apply a cold compress to affected area for 10 minutes up to 4 times daily. Follow-up with orthopedics for ongoing management of fracture. Prescriptions: Cyclobenzaprine [Flexeril] 10 mg PO TID PRN #15 tab PRN Reason: Muscle Spasm Referrals: Jaylen Mcqueen MD [Primary Care Provider] - 1-2 days [facility] [Provider Group] - 1-2 days [facility] [Provider Group] - 1-2 days
[2025-01-14] MEDS: KETOROLAC 15 MG/ML 1 ML VIAL IVP STA (22:04)
[2025-01-15 00:12] VITALS: RESP 18
--- NOTE | 2025-01-15 01:04 | CT ---
EXAM: CT Right Lower Extremity Without Intravenous Contrast, Knee CLINICAL HISTORY: ITS.REASON CT Reason: Fall, negative x-ray TECHNIQUE: Axial computed tomography images of the right knee without intravenous contrast. CTDI is 2.4 mGy and DLP is 67.3 mGy-cm. This CT exam was performed using one or more of the following dose reduction techniques: automated exposure control, adjustment of the mA and/or kV according to patient size, and/or use of iterative reconstruction technique. COMPARISON: No relevant prior studies available. FINDINGS: Bones/joints: Nondisplaced fracture of the anterior tibial metaphysis, between the tibial spines. Mild knee joint effusion. Diffuse osseous demineralization. No dislocation. Soft tissues: Unremarkable. IMPRESSION: 1. Nondisplaced fracture of the anterior tibial metaphysis, between the tibial spines. 2. Mild knee joint effusion.
[2025-01-15] MEDS: ORPHENADRINE 30 MG/ML 2 ML VIAL IM STA (01:49)
[2025-01-15 01:53] VITALS: BP 142/88; PULSE 77; TEMP 97.9
== END 2025-01-15 02:18 | disposition home or self-care (01) ==
LOC: EC 20:36
DX: S82.101A Unspecified fracture of upper end of right tibia, initial encounter for closed fracture (principal); Z88.5 Allergy status to narcotic agent; Z87.891 Personal history of nicotine dependence; W18.30XA Fall on same level, unspecified, initial encounter
CPT/HCPCS: 99284 ×2; 96374 ×2; 96375 ×2; 96376 ×2; 96372 ×2; 73590; 73562; 73700; L1830; J2360; J1171; J1885

== ENCOUNTER 2025-01-23 10:34 | Emergency (ER) | payer MEDICARE ==
[2025-01-23 10:38] VITALS: BP 143/77; PULSE 73; RESP 18; TEMP 97.7
--- NOTE | 2025-01-23 10:48 | ED ---
Recheck HPI - General Chief Complaint: Recheck/Abnormal Lab/Rx Stated Complaint: abn US Time Seen by Provider: 01/23/25 10:42 Source: patient, RN notes reviewed Mode of arrival: wheelchair Limitations: no limitations - History of Present Illness Initial Comments: This is a 59-year-old male with history including CAD, COPD, DM, AMI presenting for right leg pain (04/14) x 2 days. Patient states he suffered a proximal tibial fracture on 01/14/2025 following a fall. Patient endorses heavy sensation in knee. Endorses use of Plavix. Denies fever, chills, chest pain, dyspnea, hemoptysis. Onset/Timin -: days(s) Associated Symptoms: none - Related Data Home Medications Medication Instructions Recorded Confirmed ARIPiprazole [Abilify] 2 mg PO DAILY 08/15/24 01/23/25 Clopidogrel [Plavix] 75 mg PO DAILY 08/15/24 01/23/25 Empagliflozin [Jardiance] 10 mg PO DAILY 08/15/24 01/23/25 Metoprolol Succinate (ER) [Toprol 25 mg PO DAILY 08/15/24 01/23/25 XL] Mometasone/Formoterol [Dulera 200 2 puff INHALATION RT-BID 08/15/24 01/23/25 Mcg-5 Mcg Inhaler] Sertraline [Zoloft] 100 mg PO DAILY 08/15/24 01/23/25 Ziprasidone [Geodon] 80 mg PO HS 08/15/24 01/23/25 busPIRone HCL 15 mg PO QID 08/15/24 01/23/25 metFORMIN HCL ER [Glucophage XR] 500 mg PO DAILY 08/15/24 01/23/25 Ziprasidone [Geodon] 20 mg PO HS 12/30/24 01/23/25 Apixaban [Eliquis Starter Pack See Taper PO DIRECTED 01/23/25 01/23/25 (for VTE)] Fludrocortisone [Florinef] 0.1 mg PO DAILY 01/23/25 01/23/25 HYDROcodone/APAP 5-325MG [[place] 1 tab PO Q6HR PRN 01/23/25 01/23/25 5-325] Prazosin [Minipress] 1 mg PO HS 01/23/25 01/23/25 Ranolazine [Ranexa] 1,000 mg PO BID 01/23/25 01/23/25 diphenhydrAMINE [Benadryl] 25 mg PO HS 01/23/25 01/23/25 Previous Rx's Medication Instructions Recorded Fenofibrate [Lofibra] 54 mg PO DAILY 30 Days #30 tab 08/15/24 Aspirin 81 mg PO DAILY #30 tab 12/30/24 Isosorbide Mononitrate ER [Imdur] 30 mg PO DAILY #30 tab 12/30/24 Pantoprazole [Protonix] 40 mg PO DAILY #30 tab 12/30/24 amLODIPine [Norvasc] 5 mg PO DAILY #30 tab 12/30/24 Cyclobenzaprine [Flexeril] 10 mg PO TID PRN #15 tab 01/15/25 Allergies Allergy/AdvReac Type Severity Reaction Status Date / Time codeine Allergy Rash/Hives Verified 01/23/25 18:49 Review of Systems ROS Statement: Those systems with pertinent positive or pertinent negative responses have been documented in the HPI. ROS Other: All systems not noted in ROS Statement are negative. Past Medical History Past Medical History: Asthma, Coronary Artery Disease (CAD), Chest Pain / Angina, COPD, Diabetes Mellitus, GERD/Reflux, Hyperlipidemia, Myocardial Infarction ([place]), Sleep Apnea/CPAP/BIPAP, Syncope Additional Past Medical History / Comment(s): 6 stents and 8 heart caths, bilateral cataracts, hypotension,divericulitis Last Myocardial Infarction Date:: 2022 History of Any Multi-Drug Resistant Organisms: None Reported Past Surgical History: Appendectomy, Bowel Resection, Heart Catheterization With Stent, Hernia Repair, Tonsillectomy Additional Past Surgical History / Comment(s): right knee, right forearm. left facial reconstruction, bilateral henia sx, partial left colon removed Past Anesthesia/Blood Transfusion Reactions: No Reported Reaction Date of Last Stent Placement:: 06/2024 Past Psychological History: ADD/ADHD, Anxiety, Bipolar, Depression Smoking Status: Former smoker Past Alcohol Use History: None Reported Past Drug Use History: None Reported - Past Family History Father Family Medical History: Cancer Additional Family Medical History / Comment(s): brain cancer Mother Family Medical History: Congestive Heart Failure (CHF) General Exam Limitations: no limitations General appearance: alert, in no apparent distress Head exam: Present: atraumatic, normocephalic, normal inspection Eye exam: Present: normal appearance, PERRL, EOMI. Absent: scleral icterus, conjunctival injection, periorbital swelling ENT exam: Present: normal exam, mucous membranes moist Neck exam: Present: normal inspection. Absent: tenderness, meningismus, lymphadenopathy Respiratory exam: Present: normal lung sounds bilaterally. Absent: respiratory distress, wheezes, rales, rhonchi, stridor Cardiovascular Exam: Present: regular rate, normal rhythm, normal heart sounds. Absent: systolic murmur, diastolic murmur, rubs, gallop, clicks GI/Abdominal exam: Present: soft, normal bowel sounds. Absent: distended, tenderness, guarding, rebound, rigid Extremities exam: Present: normal capillary refill, pedal edema (Positive RLE pitting edema extending to knee with associated ecchymosis and dorsal aspect of foot/lower leg), calf tenderness (Positive Homans' sign), other (Distal RLE neurovascular and motor function intact. Posterior tibialis pulse +1, capillary refill less than 2 seconds. Knee brace around right knee noted.). Absent: joint swelling Back exam: Present: normal inspection Neurological exam: Present: alert, oriented X3, CN II-XII intact Psychiatric exam: Present: normal affect, normal mood Skin exam: Present: warm, dry, intact, normal color. Absent: rash Course Vital Signs 01/23/25 10:36 Temperature 97.7 F Pulse Rate 73 Respiratory 18 Rate Blood Pressure 143/77 O2 Sat by Pulse 100 Oximetry Medical Decision Making - Medical Decision Making Was pt. sent in by a medical professional or institution (, PA, SUPERINTENDENT CUSTODIAN JANITOR, urgent care, hospital, or halfway...) When possible be specific @ -PCP Did you speak to anyone other than the patient for history (EMS, parent, family, police, friend...)? What history was obtained from this source @ -No Did you review nursing and triage notes (agree or disagree)? Why? @ -I reviewed and agree with nursing and triage notes Were old charts reviewed (outside hosp., previous admission, EMS record, old EKG, old radiological studies, urgent care reports/EKG's, halfway records)? Report findings @ -Right lower extremity venous Doppler ultrasound from earlier today on 01/23/2025 indicates peroneal vein and posterior tibial vein DVT at level of calf/ankle. Differential Diagnosis (chest pain, altered mental status, abdominal pain women, abdominal pain men, vaginal bleeding, weakness, fever, dyspnea, syncope, headache, dizziness, GI bleed, back pain, seizure, CVA, palpatations, mental health, musculoskeletal)? @ -Differential Musculoskeletal Muscular strain, contusion, ligament sprain, fracture, arthritis, septic arthritis, bursitis, cellulitis, muscle spasm, nerve compression, DVT, arterial occlusion, herpes zoster, electrolyte abnormality, tumor.... This is not meant to be in all inclusive list EKG interpreted by me (3pts min.). @ -Not done X-rays interpreted by me (1pt min.). @ -None done CT interpreted by me (1pt min.). @ -None done U/S interpreted by me (1pt. min.). @ -None done What testing was considered but not performed or refused? (CT, X-rays, U/S, labs)? Why? @ -None What meds were considered but not given or refused? Why? @ -None Did you discuss the management of the patient with other professionals (professionals i.e. , PA, SUPERINTENDENT CUSTODIAN JANITOR, lab, RT, psych nurse, social sciences chair, assistant men's soccer coach, teacher, employment security officer, community case manager)? Give summary @ -No Was smoking cessation discussed for >3mins.? @ -No Was critical care preformed (if so, how long)? @ -No Were there social determinants of health that impacted care today? How? (Homelessness, low income, unemployed, alcoholism, drug addiction, t ransportation, low edu. Level, literacy, decrease access to med. care, fdc, rehab)? @ -No Was there de-escalation of care discussed even if they declined (Discuss DNR or withdrawal of care, Hospice)? DNR status @ -No What co-morbidities impacted this encounter? (DM, HTN, Smoking, COPD, CAD, Cancer, CVA, ARF, Chemo, Hep., AIDS, mental health diagnosis, sleep apnea, morbid obesity)? @ -None Was patient admitted / discharged? Hospital course, mention meds given and route, prescriptions, significant lab abnormalities, going to OR and other pertinent info. @ -Patient initially provided IM Dilaudid and p.o. Tylenol.. Right lower extremity venous Doppler ultrasound indicates peroneal vein and posterior tibial vein DVT at level of calf/ankle. Patient provided initial dose of Eliquis with 30-day Eliquis starter pack sent to patient's pharmacy. Advised hold on Plavix use and follow-up with inductor tester in the next 24 hours for further anticoagulant guidance. Return to ER if experiencing chest pain, difficulty breathing, hemoptysis. Discussed patient with Dr. Camargo. Undiagnosed new problem with uncertain prognosis? @ -No Drug Therapy requiring intensive monitoring for toxicity (Heparin, Nitro, Insulin, Cardizem)? @ -No Were any procedures done? @ -No Diagnosis/symptom? @ -RLE DVT Acute, or Chronic, or Acute on Chronic? @ -Acute Uncomplicated (without systemic symptoms) or Complicated (systemic symptoms)? @ -Uncomplicated Side effects of treatment? @ -No Exacerbation, Progression, or Severe Exacerbation? @ -No Poses a threat to life or bodily function? How? (Chest pain, [place], [place], pneumonia, PE, COPD, DKA, ARF, appy, cholecystitis, CVA, Diverticulitis, Homicidal, Suicidal, threat to staff... and all critical care pts) @ -No Disposition Clinical Impression: Deep vein thrombosis of right lower extremity Disposition: HOME SELF-CARE Condition: Fair Instructions (If sedation given, give patient instructions): Deep Vein Thrombosis (ED) Additional Instructions: Contact inductor tester regarding temporary cessation of Plavix with use of Eliquis. Return to ER if experiencing chest pain, trouble breathing, dizziness. Is patient prescribed a controlled substance at d/c from ED?: No Referrals: Nonstaff,Physician [Primary Care Provider] - 1-2 days Avila Day MD [STAFF PHYSICIAN] - 1-2 days Time of Disposition: 11:32
[2025-01-23] MEDS: ACETAMINOPHEN TAB 325 MG TAB PO STA (10:59)
[2025-01-23] MEDS: HYDROmorphone 1 MG/ML 1 ML SYRINGE IM STA (10:59)
[2025-01-23] MEDS: APIXABAN 5 MG TAB PO STA (11:44)
== END 2025-01-23 11:54 | disposition home or self-care (01) ==
LOC: EC 10:34
DX: I82.401 Acute embolism and thrombosis of unspecified deep veins of right lower extremity (principal); E11.9 Type 2 diabetes mellitus without complications; I25.10 Atherosclerotic heart disease of native coronary artery without angina pectoris; Z87.891 Personal history of nicotine dependence; Z88.5 Allergy status to narcotic agent
CPT/HCPCS: 99284; 96372; J1171

== ENCOUNTER 2025-01-23 18:42 | Inpatient (IN) | payer MEDICARE ==
--- NOTE | 2025-01-23 18:53 | ED ---
Recheck HPI - General Chief Complaint: Extremity Problem,Nontraumatic Stated Complaint: R Leg Pain Time Seen by Provider: 01/23/25 18:52 Source: patient, EMS, RN notes reviewed, old records reviewed Mode of arrival: EMS Limitations: no limitations - History of Present Illness Initial Comments: This is a 59-year-old male to the ER for recheck evaluation of right leg pain. Known right lower extremity DVT, history of metaphyseal fracture of the right kn ee. Severe pain in that leg, patient is currently suffering with homelessness making it difficulty to obtain medication MD Complaint: wound re-check, medication refill request -: days(s) Returns Today for: persistent/worsening pain related to initial visit Symptoms Since Prior Visit: worsening pain Associated Symptoms: none Treatments Prior to Arrival: Given Pain Meds on - Related Data Home Medications Medication Instructions Recorded Confirmed ARIPiprazole [Abilify] 2 mg PO DAILY 08/15/24 01/23/25 Clopidogrel [Plavix] 75 mg PO DAILY 08/15/24 01/23/25 Empagliflozin [Jardiance] 10 mg PO DAILY 08/15/24 01/23/25 Metoprolol Succinate (ER) [Toprol 25 mg PO DAILY 08/15/24 01/23/25 XL] Mometasone/Formoterol [Dulera 200 2 puff INHALATION RT-BID 08/15/24 01/23/25 Mcg-5 Mcg Inhaler] Sertraline [Zoloft] 100 mg PO DAILY 08/15/24 01/23/25 Ziprasidone [Geodon] 80 mg PO HS 08/15/24 01/23/25 busPIRone HCL 15 mg PO QID 08/15/24 01/23/25 metFORMIN HCL ER [Glucophage XR] 500 mg PO DAILY 08/15/24 01/23/25 Ziprasidone [Geodon] 20 mg PO HS 12/30/24 01/23/25 Apixaban [Eliquis Starter Pack See Taper PO DIRECTED 01/23/25 01/23/25 (for VTE)] Fludrocortisone [Florinef] 0.1 mg PO DAILY 01/23/25 01/23/25 HYDROcodone/APAP 5-325MG [[place] 1 tab PO Q6HR PRN 01/23/25 01/23/25 5-325] Prazosin [Minipress] 1 mg PO HS 01/23/25 01/23/25 Ranolazine [Ranexa] 1,000 mg PO BID 01/23/25 01/23/25 diphenhydrAMINE [Benadryl] 25 mg PO HS 01/23/25 01/23/25 Previous Rx's Medication Instructions Recorded Fenofibrate [Lofibra] 54 mg PO DAILY 30 Days #30 tab 08/15/24 Aspirin 81 mg PO DAILY #30 tab 12/30/24 Isosorbide Mononitrate ER [Imdur] 30 mg PO DAILY #30 tab 12/30/24 Pantoprazole [Protonix] 40 mg PO DAILY #30 tab 12/30/24 amLODIPine [Norvasc] 5 mg PO DAILY #30 tab 12/30/24 Cyclobenzaprine [Flexeril] 10 mg PO TID PRN #15 tab 01/15/25 Allergies Allergy/AdvReac Type Severity Reaction Status Date / Time codeine Allergy Rash/Hives Verified 01/23/25 18:49 Review of Systems ROS Statement: Those systems with pertinent positive or pertinent negative responses have been documented in the HPI. ROS Other: All systems not noted in ROS Statement are negative. Past Medical History Past Medical History: Asthma, Coronary Artery Disease (CAD), Chest Pain / Angina, COPD, Diabetes Mellitus, GERD/Reflux, Hyperlipidemia, Myocardial Infarction ([place]), Sleep Apnea/CPAP/BIPAP, Syncope Additional Past Medical History / Comment(s): 6 stents and 8 heart caths, bilateral cataracts, hypotension,divericulitis Last Myocardial Infarction Date:: 2022 History of Any Multi-Drug Resistant Organisms: None Reported Past Surgical History: Appendectomy, Bowel Resection, Heart Catheterization With Stent, Hernia Repair, Tonsillectomy Additional Past Surgical History / Comment(s): right knee, right forearm. left facial reconstruction, bilateral henia sx, partial left colon removed Past Anesthesia/Blood Transfusion Reactions: No Reported Reaction Date of Last Stent Placement:: 06/2024 Past Psychological History: ADD/ADHD, Anxiety, Bipolar, Depression Smoking Status: Former smoker Past Alcohol Use History: None Reported Past Drug Use History: None Reported - Past Family History Father Family Medical History: Cancer Additional Family Medical History / Comment(s): brain cancer Mother Family Medical History: Congestive Heart Failure (CHF) General Exam Limitations: no limitations General appearance: alert, in no apparent distress Head exam: Present: atraumatic, normocephalic, normal inspection Eye exam: Present: normal appearance, PERRL, EOMI. Absent: scleral icterus, conjunctival injection, periorbital swelling ENT exam: Present: normal exam, mucous membranes moist Neck exam: Present: normal inspection. Absent: tenderness, meningismus, lymphadenopathy Respiratory exam: Present: normal lung sounds bilaterally. Absent: respiratory distress, wheezes, rales, rhonchi, stridor Cardiovascular Exam: Present: regular rate, normal rhythm, normal heart sounds. Absent: systolic murmur, diastolic murmur, rubs, gallop, clicks GI/Abdominal exam: Present: soft, normal bowel sounds. Absent: distended, tenderness, guarding, rebound, rigid Extremities exam: Present: normal inspection, full ROM, normal capillary refill. Absent: tenderness, pedal edema, joint swelling, calf tenderness Back exam: Present: normal inspection Neurological exam: Present: alert, oriented X3, CN II-XII intact Psychiatric exam: Present: normal affect, normal mood Skin exam: Present: warm, dry, intact, normal color. Absent: rash Course Vital Signs 01/23/25 01/23/25 18:46 22:32 Temperature 97.8 F Pulse Rate 77 65 Respiratory 18 17 Rate Blood Pressure 140/82 149/88 O2 Sat by Pulse 100 98 Oximetry - Reevaluation(s) Reevaluation #1: 01/23/25 19:08 Medical records reviewed Outpatient ultrasound reviewed positive DVT Reevaluation #2: 01/23/25 19:09 Patient's pain is uncontrolled Patient does have significant difficulty getting medications with homelessness Reevaluation #3: 01/23/25 19:09 Patient informed of results questions answered Reevaluation #4: Was pt. sent in by a medical professional or institution (, PA, MARKETING CONSULTANT, urgent care, hospital, or detention...) When possible be specific @ -no Did you speak to anyone other than the patient for history (EMS, parent, family, police, friend...)? What history was obtained from this source @ -no Did you review nursing and triage notes (agree or disagree)? Why? @ -agree Are old charts reviewed (outside hosp., previous admission, EMS record, old EKG, old radiological studies, urgent care reports/EKG's, detention records)? Report findings @ -yes Differential Diagnosis (chest pain, altered mental status, abdominal pain women, abdominal pain men, vaginal bleeding, weakness, fever, dyspnea, syncope, headache, dizziness, GI bleed, back pain, seizure, CVA, palpatations, mental health, musculoskeletal)? @ -prior EKG interpreted by me (3pts min.). @ -no X-rays interpreted by me (1pt min.). @ -no CT interpreted by me (1pt min.). @ -no U/S interpreted by me (1pt. min.). @ -Yes positive for DVT What testing was considered but not performed or refused? (CT, X-rays, U/S, labs)? Why? @ -none What meds were considered but not given or refused? Why? @ -none Did you discuss the management of the patient with other professionals (professionals i.e. , PA, MARKETING CONSULTANT, lab, RT, psych nurse, social science professor, ssds mk 2 advanced operator, teacher, customer service security officer, case resolution specialist)? Give summary @ -no Was smoking cessation discussed for >3mins.? @ -no Was critical care preformed (if so, how long)? @ -no Were there social determinants of health that impacted care today? How? (Homelessness, low income, unemployed, alcoholism, drug addiction, transportation, low edu. Level, literacy, decrease access to med. care, correction, rehab)? @ -none Was there de-escalation of care discussed even if they declined (Discuss DNR or withdrawal of care, Hospice)? DNR status @ -no What co-morbidities impacted this encounter? (DM, HTN, Smoking, COPD, CAD, Cancer, CVA, ARF, Chemo, Hep., AIDS, mental health diagnosis, sleep apnea, morbid obesity)? @ -none Was patient admitted / discharged? Hospital course, mention meds given and route, prescriptions, significant lab abnormalities, going to OR and other pertinent info. @ - 59 male to be admitted acute right lower extremity DVT prior metaphyseal fracture right tibia, patient is in a brace, will be placed on anticoagulation for DVT Admitted Undiagnosed new problem with uncertain prognosis? @ -no Drug Therapy requiring intensive monitoring for toxicity (Heparin, Nitro, Insulin, Cardizem)? @ -no Were any procedures done? @ -no Diagnosis/symptom? @ -Right lower extremity DVT Acute, or Chronic, or Acute on Chronic? @ -Acute Uncomplicated (without systemic symptoms) or Complicated (systemic symptoms)? @ -Complicated Side effects of treatment? @ -no Exacerbation, Progression, or Severe Exacerbation? @ -exacerbation Poses a threat to life or bodily function? How? (Chest pain, [place], [place], pneumonia, PE, COPD, DKA, ARF, appy, cholecystitis, CVA, Diverticulitis, Homicidal, Suicidal, threat to staff... and all critical care pts) @ -yes DVT - Consultations Consultation #1: Spoke with sound who agrees to admit this patient Medical Decision Making - Medical Decision Making 59 male to be admitted acute right lower extremity DVT prior metaphyseal fracture right tibia, patient is in a brace, will be placed on anticoagulation for DVT - Lab Data Result diagrams: 01/26/25 06:15 01/26/25 06:15 - Radiology Data Radiology results: report reviewed (Ultrasound right lower extremity positive DVT) Disposition Clinical Impression: Metaphyseal fracture of proximal end of tibia, Deep vein thrombosis of right lower extremity, Homelessness, Right leg pain Disposition: ADMITTED IP TO THIS [facility] Condition: Fair Is patient prescribed a controlled substance at d/c from ED?: No Time of Disposition: 20:00
[2025-01-23] MEDS ORDERED: NALOXONE 0.4 MG/ML 1 ML VIAL IV PRN (19:05)
[2025-01-23] MEDS ORDERED: ONDANSETRON 4 MG/2 ML VIAL IVP PRN (19:05)
[2025-01-23] MEDS: MORPHINE SULFATE 4 MG/ML SYRINGE IV STA (19:35)
[2025-01-23] MEDS: ONDANSETRON 4 MG/2 ML VIAL IVP STA (19:35)
[2025-01-23] MEDS: HEPARIN SODIUM 1,000 UN/ML (10ML VL) IV ONE (19:36)
[2025-01-23] MEDS: HEPARIN SOD,PORK IN 0.45% NACL 25,000 UNIT in 0.45% NACL 1 250ML.BAG IV SCH (19:40)
--- NOTE | 2025-01-23 19:42 | XR ---
EXAMINATION TYPE: XR tibia fibula RT DATE OF EXAM: 01/23/2025 7:33 PM INDICATION: Patient age:Male; 59 years old; Reason for study: pain; PHH. pain COMPARISON: Right tibia/fibular radiographs 01/14/2025, CT right knee 01/14/2025 TECHNIQUE: The right tibia/fibula was examined in AP and lateral projections. FINDINGS: Acute mildly displaced oblique fracture of the proximal tibial metadiaphysis. No intra-ciarra cular extension. No dislocation identified. Mild surrounding soft tissue swelling. Mild atheroscleros is. No joint effusions. No radiopaque foreign body. IMPRESSION: Acute mildly displaced oblique fracture of the proximal tibial metadiaphysis. [facility], , 01/23/2025 7:39 PM
[2025-01-23 20:00] LABS: Basophils # (A) 0.04 10*3/uL (0.00-0.10); Basophils % (A) 0.7 %; Eosinophils # (A) 0.14 10*3/uL (0.04-0.35); Eosinophils % (A) 2.6 %; HCT 29.0 % (39.6-50.0); HGB 9.4 g/dL (13.0-17.0); Lymphocytes # (A) 0.94 10*3/uL (0.90-5.00); Lymphocytes % (A) 17.5 %; MCH 26.3 pg (27.0-32.0); MCHC 32.4 g/dL (32.0-37.0); MCV 81.0 fL (80.0-97.0); Monocytes # (A) 0.67 10*3/uL (0.20-1.00); Monocytes % (A) 12.5 %; Neutrophils # (A) 3.48 10*3/uL (1.80-7.70); Neutrophils % (A) 64.8 %; Platelet Count 369 10*3/uL (140-440); RBC 3.58 10*6/uL (4.40-5.60); RDW 16.8 % (11.5-14.5); WBC 5.37 10*3/uL (4.50-10.00)
[2025-01-23 20:19] LABS: ALT 12 U/L (4-49); AST 17 U/L (17-59); African American GFR (CKD) >90 (>60 ml/min/1.73 sqM); Albumin 3.4 g/dL (3.5-5.0); Alkaline Phosphatase 78 U/L (38-126); Anion Gap 12 mmol/L; Blood Urea Nitrogen 21 mg/dL (9-20); Calcium 9.7 mg/dL (8.4-10.2); Carbon Dioxide 23 mmol/L (22-30); Chloride 100 mmol/L (98-107); Glucose 319 mg/dL (74-99); Magnesium 1.9 mg/dL (1.6-2.3); Non-African American GFR(CKD) >90 (>60 ml/min/1.73 sqM); Potassium 3.9 mmol/L (3.5-5.1); Sodium 135 mmol/L (137-145); Total Protein 6.0 g/dL (6.3-8.2)
[2025-01-23 20:21] LABS: INR 0.9 (<1.2); Partial Thromboplastin Time 27.3 sec (22.0-30.0); Prothrombin Time 10.5 sec (10.0-12.5)
--- NOTE | 2025-01-23 21:29 | P.HPIM ---
History of Present Illness H&P Date: 01/23/25 Chief Complaint: Acute DVT of Right leg Patient is a 59-year-old male with a PMH of - CAD s/p 8 heart cath and 6 stents - Angina - Diabetes mellitus type 2 - Primary hypertension - Asthma - COPD Comes into the emergency for right leg pain Patient stated that he had a fall on the 01/14/2025 where he had his proximal tibia fracture. Since then, he had pain in his right lower extremity, and started to notice swelling in his right leg. the swelling in his right leg has been progressively worse. A venous Doppler ultrasound was done in the ED, and showed DVT in peroneal vein and posterior tibial veins at the level of the calf and ankle. In the ED patient was started on heparin drip. Patient is stated that he used to be on Plavix and baby aspirin, but today he stopped taking Plavix and took Eliquis instead as he was told by his doctor. Patient had history of multiple PCI, with the last stent placed in 07/2024. Patient looked in mild distress and pain when examined. He denied having headache, chest pain, shortness of breath, abdominal pain, weakness, numbness or tingling. He is positive for right leg edema status post tibia fracture, with no loss of sensation or numbness or tingling. Imaging Right tibia-fibula x-ray 01/23 Acute mildly displaced oblique fracture of the proximal tibial metadiaphysis Venous Doppler ultrasound 01/23 Positive for right lower extremity DVT involving deep peroneal veins as well as 1 of 2 posterior tibial veins at the level of the calf and ankle. Labs WBC 5.37, Hgb 9.4, HCT 29, plt count 369 D-dimer 2.68 Na 135, K 3.9, Cl 100, CO2 23, BUN 21, Cr 0.83, glucose 319 Vitals T 97.8F, HR 77, RR 18, BP 140/82, O2 sat 100% on RA ED documentation reviewed Review of systems: Pertinent positives and negatives as discussed in HPI, a complete review of systems was performed and all other systems are negative. Physical examination: Vital signs reviewed General: non toxic, in mild distress and pain Derm: no unusual rashes/lesions, warm Eyes: EOMI, anicteric sclera, pupils equal round reactive to light ENT: Nose and ears atraumatic Neck: No cervical lymphadenopathy, supple Mouth: no lip lesion, mucus membranes moist Cardiovascular: S1S2 reg, no murmur, positive dorsalis pedis pulse bilateral, edema in RLE Lungs: normal breathing effort, no rhonchi, no rales, no accessory muscle use Abdominal: soft, nontender to palpation, no guarding Ext: muscle strength 5 out of 5 in upper extremities grossly, no gross muscle atrophy Neuro: No loss of sensation on lower extremities Psych: Alert, oriented to person, place, and time Assessment/Plan: #. Intractable pain in RIGHT lower leg #. Right tibial fracture - Pt has non-displaced fracture of proximal tibia on 01/14/2025 - manage pain #. Acute DVT in right lower extremity - D dimer 2.68 - Venous doppler US positve for emboli involving peroneal and posterior tibial veins at the level of right calf and ankle - keep patient on heparin drip for now, and switch to Eliquis in AM #. Normocytic anemia - Hgb 9.4 - monitor hemoglobin levels - No source of external bleeding - order FOBT #. CAD status post multiple PCI and stents - last cath in 12/2024 - last heart stent in 08/2024 - resume ASA and Plavix - resume Fenofibrate 54 mg daily #. Anginal chest pain - Resume isosorbide mononitrate and ranolazine #. Diabetes mellitus type 2, poorly controlled - Check HbA1c - At home on metformin, Jardiance 10 mg, Lantus 10 U HS, Humalog 5 U TID - Resume Jardiance 10 mg, Lantus 10U HS - Hold metformin - Start on insulin sliding scale - Monitor glucose blood levels #. Primary hypertension - Denied taking any medications for hypertension at home - Resume amlodipine 5 mg daily, and Toprol 25 mg daily #. Asthma #. COPD - resume Dulera 200 mcg-5 mcg inhaler DVT prophylaxis: Heparin drip for acute DVT The patient is admitted with an anticipated this than 2 midnight stay for evaluation of acute DVT CODE STATUS: Full code Discussed with: Dr. Thayer Anticipated discharge place: To be determined Lin Stewart MD PGY-1 IM Dictation was produced using [employer] dictation software. please excuse any grammatical, word or spelling errors. I have seen and evaluated the patient today. I Discussed the case with the resident and agree with the resident's findings I edited the assessment and plan as necessary as documented in the resident's note. Past Medical History Past Medical History: Asthma, Coronary Artery Disease (CAD), Chest Pain / Angina, COPD, Diabetes Mellitus, GERD/Reflux, Hyperlipidemia, Myocardial Infarction (AK), Sleep Apnea/CPAP/BIPAP, Syncope Additional Past Medical History / Comment(s): 6 stents and 8 heart caths, bilateral cataracts, hypotension,divericulitis Last Myocardial Infarction Date:: 2022 History of Any Multi-Drug Resistant Organisms: None Reported Past Surgical History: Appendectomy, Bowel Resection, Heart Catheterization With Stent, Hernia Repair, Tonsillectomy Additional Past Surgical History / Comment(s): right knee, right forearm. left facial reconstruction, bilateral henia sx, partial left colon removed Past Anesthesia/Blood Transfusion Reactions: No Reported Reaction Date of Last Stent Placement:: 06/2024 Past Psychological History: ADD/ADHD, Anxiety, Bipolar, Depression Smoking Status: Former smoker Past Alcohol Use History: None Reported Past Drug Use History: None Reported - Past Family History Father Family Medical History: Cancer Additional Family Medical History / Comment(s): brain cancer Mother Family Medical History: Congestive Heart Failure (CHF) Medications and Allergies Home Medications Medication Instructions Recorded Confirmed Type ARIPiprazole [Abilify] 2 mg PO DAILY 08/15/24 01/23/25 History Clopidogrel [Plavix] 75 mg PO DAILY 08/15/24 01/23/25 History Empagliflozin [Jardiance] 10 mg PO DAILY 08/15/24 01/23/25 History Fenofibrate [Lofibra] 54 mg PO DAILY 30 Days #30 tab 08/15/24 01/23/25 Rx Metoprolol Succinate (ER) [Toprol 25 mg PO DAILY 08/15/24 01/23/25 History XL] Mometasone/Formoterol [Dulera 200 2 puff INHALATION RT-BID 08/15/24 01/23/25 History Mcg-5 Mcg Inhaler] Sertraline [Zoloft] 100 mg PO DAILY 08/15/24 01/23/25 History Ziprasidone [Geodon] 80 mg PO HS 08/15/24 01/23/25 History busPIRone HCL 15 mg PO QID 08/15/24 01/23/25 History metFORMIN HCL ER [Glucophage XR] 500 mg PO DAILY 08/15/24 01/23/25 History Aspirin 81 mg PO DAILY #30 tab 12/30/24 01/23/25 Rx Isosorbide Mononitrate ER [Imdur] 30 mg PO DAILY #30 tab 12/30/24 01/23/25 Rx Pantoprazole [Protonix] 40 mg PO DAILY #30 tab 12/30/24 01/23/25 Rx Ziprasidone [Geodon] 20 mg PO HS 12/30/24 01/23/25 History amLODIPine [Norvasc] 5 mg PO DAILY #30 tab 12/30/24 01/23/25 Rx Cyclobenzaprine [Flexeril] 10 mg PO TID PRN #15 tab 01/15/25 01/23/25 Rx Apixaban [Eliquis Starter Pack See Taper PO DIRECTED 01/23/25 01/23/25 History (for VTE)] Fludrocortisone [Florinef] 0.1 mg PO DAILY 01/23/25 01/23/25 History HYDROcodone/APAP 5-325MG [Vincent 1 tab PO Q6HR PRN 01/23/25 01/23/25 History 5-325] Prazosin [Minipress] 1 mg PO HS 01/23/25 01/23/25 History Ranolazine [Ranexa] 1,000 mg PO BID 01/23/25 01/23/25 History diphenhydrAMINE [Benadryl] 25 mg PO HS 01/23/25 01/23/25 History Allergies Allergy/AdvReac Type Severity Reaction Status Date / Time codeine Allergy Rash/Hives Verified 01/23/25 18:49 Physical Exam Vitals: Vital Signs Temp Pulse Resp BP Pulse Ox 01/23/25 18:46 97.8 F 77 18 140/82 100 Intake and Output 01/23/25 01/23/25 01/23/25 06:59 14:59 22:59 Other: Weight 60.328 kg Results CBC & Chem 7: 01/23/25 19:20 01/23/25 19:20 Labs: Abnormal Lab Results - Last 24 Hours (Table) 01/23/25 01/23/25 01/23/25 Range/Units 19:20 19:20 19:20 RBC 3.58 L (4.40-5.60) 10*6/uL Hgb 9.4 L (13.0-17.0) g/dL Hct 29.0 L (39.6-50.0) % MCH 26.3 L (27.0-32.0) pg Immature Gran # 0.10 H (0.00-0.04) 10*3/uL D-Dimer 2.68 H (<0.60) mg/L FEU Sodium 135 L (137-145) mmol/L BUN 21 H (9-20) mg/dL Glucose 319 H (74-99) mg/dL Total Protein 6.0 L (6.3-8.2) g/dL Albumin 3.4 L (3.5-5.0) g/dL
[2025-01-23] MEDS ORDERED: DEXTROSE 50% SYRINGE 50 ML IVP PRN ×2 (22:44)
[2025-01-23 23:13] LABS: Glucose,Whole Blood 208 mg/dL (70-110)
[2025-01-24] MEDS: MORPHINE SULFATE 4 MG/ML SYRINGE IV PRN (00:19)
[2025-01-24] MEDS: CYCLOBENZAPRINE 10 MG TAB PO PRN (04:52)
[2025-01-24 06:07] LABS: Basophils # (A) 0.06 10*3/uL (0.00-0.10); Basophils % (A) 1.1 %; Eosinophils # (A) 0.17 10*3/uL (0.04-0.35); Eosinophils % (A) 3.2 %; HCT 30.0 % (39.6-50.0); HGB 9.6 g/dL (13.0-17.0); Lymphocytes # (A) 1.33 10*3/uL (0.90-5.00); Lymphocytes % (A) 25.0 %; MCH 26.4 pg (27.0-32.0); MCHC 32.0 g/dL (32.0-37.0); MCV 82.4 fL (80.0-97.0); Monocytes # (A) 0.63 10*3/uL (0.20-1.00); Monocytes % (A) 11.9 %; Neutrophils # (A) 3.02 10*3/uL (1.80-7.70); Neutrophils % (A) 56.9 %; Platelet Count 391 10*3/uL (140-440); RBC 3.64 10*6/uL (4.40-5.60); RDW 16.9 % (11.5-14.5); WBC 5.31 10*3/uL (4.50-10.00)
[2025-01-24] MEDS: SODIUM CHLORIDE 0.9% 1,000 ML IV SCH (06:38)
[2025-01-24 07:20] LABS: Glucose,Whole Blood 130 mg/dL (70-110)
[2025-01-24] MEDS: SYMBICORT 160-4.5 MCG INHALER INHALATION SCH (07:50)
[2025-01-24 08:00] LABS: ALT 12 U/L (4-49); African American GFR (CKD) >90 (>60 ml/min/1.73 sqM); Albumin 3.3 g/dL (3.5-5.0); Albumin/Globulin Ratio 1.3; Anion Gap 9 mmol/L; Blood Urea Nitrogen 16 mg/dL (9-20); Calcium 9.3 mg/dL (8.4-10.2); Carbon Dioxide 23 mmol/L (22-30); Chloride 105 mmol/L (98-107); Globulin 2.5 g/dL; Glucose 151 mg/dL (74-99); Non-African American GFR(CKD) >90 (>60 ml/min/1.73 sqM); Sodium 137 mmol/L (137-145); Total Protein 5.8 g/dL (6.3-8.2)
[2025-01-24 08:01] LABS: AST 24 U/L (17-59); Alkaline Phosphatase 65 U/L (38-126); Potassium 4.3 mmol/L (3.5-5.1)
[2025-01-24] MEDS: INSULIN LISPRO (HumaLOG) 100 UNIT/ML 10 mL VL SQ SCH (08:19)
[2025-01-24] MEDS: amLODIPine 5 MG TAB PO SCH (08:19)
[2025-01-24] MEDS: RANOLAZINE 500 MG TAB.ER.12H PO SCH (08:19)
[2025-01-24] MEDS: FENOFIBRATE 54 MG TAB PO SCH (08:19)
[2025-01-24] MEDS: DAPAGLIFLOZIN PROPANEDIOL 5 MG TABLET PO SCH (08:19)
[2025-01-24] MEDS: ISOSORBIDE MONONITRATE ER 30 MG TAB.ER.24H PO SCH (08:19)
[2025-01-24] MEDS: CLOPIDOGREL 75 MG TAB PO SCH (08:19)
[2025-01-24] MEDS: METOPROLOL SUCCINATE (ER) 25 MG TAB.ER.24H PO SCH (08:19)
[2025-01-24 08:40] LABS: Basophils # (A) 0.04 X 10*3/uL (0.00-0.10); Basophils % (A) 0.7 %; Eosinophils # (A) 0.16 X 10*3/uL (0.04-0.35); Eosinophils % (A) 2.9 %; HCT 29.6 % (39.6-50.0); HGB 8.9 g/dL (13.0-17.0); Immature Grans, Automated 2.50 %; Lymphocytes # (A) 1.19 X 10*3/uL (0.90-5.00); Lymphocytes % (A) 21.5 %; MCH 25.4 pg (27.0-32.0); MCHC 30.1 g/dL (32.0-37.0); MCV 84.3 FL (80.0-97.0); Monocytes # (A) 0.66 X 10*3/uL (0.20-1.00); Monocytes % (A) 11.9 %; NRBC Per 100 WBC 0 X 10*3/uL (0.00-0.01); Neutrophils # (A) 3.34 X 10*3/uL (1.80-7.70); Neutrophils % (A) 60.5 %; Platelet Count 381 X 10*3/uL (140-440); RBC 3.51 X 10*6/uL (4.40-5.60); RDW 17.4 % (11.5-14.5); WBC 5.53 X 10*3/uL (4.50-10.00)
[2025-01-24] MEDS: SERTRALINE 100 MG TAB PO SCH (10:58)
[2025-01-24] MEDS: FLUDROCORTISONE 0.1 MG TAB PO SCH (10:58)
[2025-01-24] MEDS: PANTOPRAZOLE 40 MG TABLET PO SCH (10:58)
[2025-01-24 12:13] VITALS: BMI 21.4
[2025-01-24 12:35] LABS: Glucose,Whole Blood 400 mg/dL (70-110)
[2025-01-24 12:56] LABS: ALT 12 U/L (10-49); AST 15 U/L (14-35); Albumin 3.4 g/dL (3.8-4.9); Albumin/Globulin Ratio 1.48 Ratio (1.60-3.17); Alkaline Phosphatase 66 U/L (41-126); Anion Gap 15.60 mmol/L (4.00-12.00); BUN/Creat Ratio 18.00 Ratio (12.00-20.00); Blood Urea Nitrogen 16.2 mg/dL (9.0-27.0); Calcium 9.3 mg/dL (8.7-10.3); Carbon Dioxide 21.4 mmol/L (21.6-31.8); Chloride 104 mmol/L (96-109); Globulin 2.3 g/dL (1.6-3.3); Glucose 265 mg/dL (70-110); Magnesium 1.9 mg/dL (1.5-2.4); Potassium 4.0 mmol/L (3.5-5.5); Sodium 141 mmol/L (135-145); Total Protein 5.7 g/dL (6.2-8.2)
[2025-01-24 16:57] LABS: Glucose,Whole Blood 172 mg/dL (70-110)
[2025-01-24] MEDS ORDERED: ACETAMINOPHEN TAB 325 MG TAB PO PRN (17:36)
--- NOTE | 2025-01-24 17:49 | P.PN ---
Subjective Progress Note Date: 01/24/25 Hospital course: Patient is a very pleasant 59-year-old with a past medical history of CAD status post stenting, hypertension, hyperlipidemia, chronic diastolic heart failure, [id number] diabetes mellitus, asthma, COPD, anxiety with depression, and bipolar disorder. He presented to the hospital on 01/23/2025 with a chief complaint of right lower extremity pain. Patient reports he is currently homeless and lives in the car with his and his dog and on 01/14/2025 he sustained a fall which resulted in right lower extremity pain. Patient reports he was evaluated in the emergency department at that time and was found to have a nondisplaced fracture of the anterior tibial metaphases and mild joint effusion of his knee. Patient reports he was placed in an immobilizer and discharged home with crutches and instructed to follow-up outpatient with orthopedic surgeon. Patient reports he was evaluated by the orthopedic surgeon and sent for a Doppler of his right lower extremity and was found to have a DVT involving the peroneal veins as well as 1 of 2 posterior tibial veins at the le yue of the calf and ankle. Patient was instructed to return to the emergency department for admission. Upon arrival to our facility, vital signs revealed blood pressure 140/82, heart rate 77, respiratory rate 18, temp 97.8 F, SpO2 100% on room air. Right lower extremity revealed acute mildly displaced oblique fracture of the proximal tibial metadiaphysis. Labs completed and reviewed. CBC revealed microcytic anemia with hemoglobin of 8.9. Coagulation profile showing elevated D-dimer of 2.68. BMP showing high anion gap metabolic acidosis with chloride of 104, bicarb 21.4, and anion gap of 15.60. Blood glucose was elevated at 265. Calcium 9.3. Magnesium 1.9. Patient was started on high intensity heparin infusion for treatment of acute DVTs and admitted under our services with consultation to orthopedic surgery team. Physical exam: Vital signs reviewed and stable. General: Nontoxic, no distress and appears stated age. Derm: Skin warm and dry, normal coloration for ethnicity. Head: Atraumatic, normocephalic and symmetric. Eyes: EOM's intact, no lid lag, and anicteric sclera Mouth: no lip lesions, mucus membranes moist Cardiovascular: regular rate and rhythm with normal S1S2, no murmur, positive posterior tibial pulses bilaterally, and cap refill < 2 seconds. Lungs: Respirations even, regular, and unlabored on room air. Lungs CTA bilaterally, no rhonchi, no rales, no wheezing, and no accessory muscle usage. Abdominal: soft, nontender to palpation, no guarding, no appreciable organomegaly Ext: No gross muscle atrophy, no contractures. Movement and sensation intact. Right lower extremity with 1+ edema and bruising. Neuro: Speech clear, face symmetrical and CN II-XII grossly intact with no noted focal neuro deficits Psych: Alert and oriented to person, place, time, and situation. Appropriate and pleasant affect. Assessment and Plan of Care: Acute DVTs involving right peroneal vein as well as posterior tibial vein Displaced oblique fracture of the proximal metadiaphysis -Continue anticoagulation with high intensity heparin infusion with close mon itoring of PTT for goal therapeutic range of 45 to 79 seconds. -Consult placed orthopedic surgery team, appreciate recommendations. -Symptomatic care and pain management with Tylenol 650 mg every 6 hours as needed for mild pain/discomfort, [place] 5/325 mg tablets every 4 hours as needed for moderate pain, and morphine 4 mg IVP every 4 hours as needed for severe pain. -Nonweightbearing of right lower extremity pending further recommendations from orthopedic surgery team. -Consult placed to social work for assistance as patient reports being homeless and currently living in his car and nonweightbearing of right lower extremity. Type II [id number]-idoxtvnko diabetes mellitus with hyperglycemia -Hold metformin and place patient on glycemic protocol with Humalog sliding scale. Follow-up on hemoglobin A1c results. CAD status post stenting Angina Chronic diastolic heart failure Hypertension Hyperlipidemia Continue cardiac medication regimen with amlodipine 5 mg daily, Plavix 75 mg daily, Farxiga 5 mg daily, fenofibrate 54 mg daily, Florinef 0.1 mg daily, isosorbide mononitrate 30 mg daily, metoprolol 25 mg daily, and Ranexa 1000 mg twice daily Data and imaging reviewed: Labs reviewed. CBC showing hemoglobin of 9.6. PTT subtherapeutic at 41.5. BMP unremarkable. Blood glucose 151. Calcium 9.3. Liver profile showing hypoalbuminemia with albumin of 3.3 otherwise normal findings. Vital signs reviewed. Blood pressure 136/79, heart rate 75, respiratory rate 18, temp 97.8 F, and SpO2 of 96% on room air CODE STATUS: Full code DVT prophylaxis: Heparin infusion Anticipated discharge date: Pending clinical course Anticipated discharge place: Pending clinical course Patient was seen independently by Nurse Pracitioner. This document was prepared using [employer] dictation software. 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 Dakota Frazier NP rendered care for this patient independently, reviewed the findings and plan as documented in the note above and agree with plan. I did not physically speak with or examine the patient on this date. Objective - Vital Signs Vital signs: Vital Signs Temp 97.8 F 01/24/25 07:45 Pulse 75 01/24/25 07:45 Resp 18 01/24/25 07:45 BP 136/79 01/24/25 07:45 Pulse Ox 96 01/24/25 07:45 FiO2 Intake & Output 01/23/25 01/24/25 01/24/25 18:59 06:59 18:59 Intake Total 118 Output Total 300 875 Balance -300 -757 Weight 60.328 kg 60.328 kg Intake: Oral 118 Output: Urine 300 875 Other: Voiding Method Urinal Urinal Diaper Diaper - Labs CBC & Chem 7: 01/24/25 05:49 01/24/25 05:49 Labs: Abnormal Lab Results - Last 24 Hours (Table) 01/23/25 01/23/25 01/23/25 Range/Units 19:20 19:20 19:20 RBC 3.58 L (4.40-5.60) 10*6/uL Hgb 9.4 L (13.0-17.0) g/dL Hct 29.0 L (39.6-50.0) % MCH 26.3 L (27.0-32.0) pg MCHC (32.0-37.0) g/dL RDW (11.5-14.5) % Immature Gran # 0.10 H (0.00-0.04) 10*3/uL APTT (22.0-30.0) sec D-Dimer 2.68 H (<0.60) mg/L FEU Sodium 135 L (137-145) mmol/L BUN 21 H (9-20) mg/dL Glucose 319 H (74-99) mg/dL POC Glucose (mg/dL) (70-110) mg/dL Hemoglobin A1c (<=6.0) % Total Protein 6.0 L (6.3-8.2) g/dL Albumin 3.4 L (3.5-5.0) g/dL 01/23/25 01/23/25 01/24/25 Range/Units 19:20 23:11 01:03 RBC (4.40-5.60) 10*6/uL Hgb (13.0-17.0) g/dL Hct (39.6-50.0) % MCH (27.0-32.0) pg MCHC (32.0-37.0) g/dL RDW (11.5-14.5) % Immature Gran # (0.00-0.04) 10*3/uL APTT 54.9 H (22.0-30.0) sec D-Dimer (<0.60) mg/L FEU Sodium (137-145) mmol/L BUN (9-20) mg/dL Glucose (74-99) mg/dL POC Glucose (mg/dL) 208 H (70-110) mg/dL Hemoglobin A1c 10.0 H (<=6.0) % Total Protein (6.3-8.2) g/dL Albumin (3.5-5.0) g/dL 01/24/25 01/24/25 01/24/25 Range/Units 01:05 05:49 05:49 RBC 3.51 L 3.64 L (4.40-5.60) 10*6/uL Hgb 8.9 L 9.6 L (13.0-17.0) g/dL Hct 29.6 L 30.0 L (39.6-50.0) % MCH 25.4 L 26.4 L (27.0-32.0) pg MCHC 30.1 L (32.0-37.0) g/dL RDW 17.4 H 16.9 H (11.5-14.5) % Immature Gran # 0.14 H 0.10 H (0.00-0.04) 10*3/uL APTT 41.5 H (22.0-30.0) sec D-Dimer (<0.60) mg/L FEU Sodium (137-145) mmol/L BUN (9-20) mg/dL Glucose (74-99) mg/dL POC Glucose (mg/dL) (70-110) mg/dL Hemoglobin A1c (<=6.0) % Total Protein (6.3-8.2) g/dL Albumin (3.5-5.0) g/dL 01/24/25 01/24/25 Range/Units 05:49 07:19 RBC (4.40-5.60) 10*6/uL Hgb (13.0-17.0) g/dL Hct (39.6-50.0) % MCH (27.0-32.0) pg MCHC (32.0-37.0) g/dL RDW (11.5-14.5) % Immature Gran # (0.00-0.04) 10*3/uL APTT (22.0-30.0) sec D-Dimer (<0.60) mg/L FEU Sodium (137-145) mmol/L BUN (9-20) mg/dL Glucose 151 H (74-99) mg/dL POC Glucose (mg/dL) 130 H (70-110) mg/dL Hemoglobin A1c (<=6.0) % Total Protein 5.8 L (6.3-8.2) g/dL Albumin 3.3 L (3.5-5.0) g/dL
[2025-01-24 20:19] LABS: Glucose,Whole Blood 185 mg/dL (70-110)
[2025-01-24] MEDS: INSULIN GLARGINE (LANTUS) 100 UNIT/ML SYR SQ SCH (21:06)
[2025-01-24] MEDS: PRAZOSIN 1 MG CAP PO SCH (21:08)
[2025-01-24] MEDS: ZIPRASIDONE 20 MG CAP PO SCH (21:08)
[2025-01-24] MEDS: ZIPRASIDONE 80 MG CAP PO SCH (21:54)
--- NOTE | 2025-01-24 23:24 | CT ---
EXAM: CT Right Lower Extremity Without Intravenous Contrast CLINICAL HISTORY: CT Reason: CT scan right tibia, please include knee TECHNIQUE: Axial computed tomography images of the right lower extremity without intravenous contrast. CTDI is 2.5 mGy and DLP is 156.9 mGy-cm. This CT exam was performed using one or more of the following dose reduction techniques: automated exposure control, adjustment of the mA and/or kV according to patient size, and/or use of iterative reconstruction technique. COMPARISON: Plain films from 01/23/2025 FINDINGS: Bones/joints: There is a slightly displaced and impacted fracture involving the proximal right tibial metaphysis located 4 cm from the knee joint. There is a nondisplaced sagittally oriented fracture line extending to the articular surface at the tibial spine. There is diffuse osteopenia. There is a small knee joint effusion. The fibula appears to be intact. The distal femur and patella appear intact. Multiple healed fractures of the 2nd through 5th metatarsal bones. No dislocation. Soft tissues: Unremarkable. IMPRESSION: There is a slightly displaced and impacted fracture involving the proximal right tibial metaphysis located 4 cm from the knee joint. There is a nondisplaced sagittally oriented fracture line extending to the articular surface at the tibial spine.
[2025-01-25 07:14] LABS: Glucose,Whole Blood 131 mg/dL (70-110)
[2025-01-25] MEDS: HEPARIN SODIUM 1,000 UN/ML (10ML VL) IV PRN (07:48)
[2025-01-25] MEDS: HYDROcodone/APAP 5-325MG 1 EACH TAB PO PRN (08:39)
[2025-01-25 12:18] LABS: Glucose,Whole Blood 173 mg/dL (70-110)
--- NOTE | 2025-01-25 13:27 | P.PN ---
Subjective Progress Note Date: 01/25/25 Hospital course: Patient is a very pleasant 59-year-old with a past medical history of CAD status post stenting, hypertension, hyperlipidemia, chronic diastolic heart failure, ema-ihhakgc-adiigtzwh diabetes mellitus, asthma, COPD, anxiety with depression, and bipolar disorder. He presented to the hospital on 01/23/2025 with a chief complaint of right lower extremity pain. Patient reports he is currently homeless and lives in the car with his and his dog and on 01/14/2025 he sustained a fall which resulted in right lower extremity pain. Patient reports he was evaluated in the emergency department at that time and was found to have a nondisplaced fracture of the anterior tibial metaphases and mild joint effusion of his knee. Patient reports he was placed in an immobilizer and discharged home with crutches and instructed to follow-up outpatient with orthopedic surgeon. Patient reports he was evaluated by the orthopedic surgeon and sent for a Doppler of his right lower extremity and was found to have a DVT involving the peroneal veins as well as 1 of 2 posterior tibial veins at the le yue of the calf and ankle. Patient was instructed to return to the emergency department for admission. Upon arrival to our facility, vital signs revealed blood pressure 140/82, heart rate 77, respiratory rate 18, temp 97.8 F, SpO2 100% on room air. Right lower extremity revealed acute mildly displaced oblique fracture of the proximal tibial metadiaphysis. Labs completed and reviewed. CBC revealed microcytic anemia with hemoglobin of 8.9. Coagulation profile showing elevated D-dimer of 2.68. BMP showing high anion gap metabolic acidosis with chloride of 104, bicarb 21.4, and anion gap of 15.60. Blood glucose was elevated at 265. Calcium 9.3. Magnesium 1.9. Patient was started on high intensity heparin infusion for treatment of acute DVTs and admitted under our services with consultation to orthopedic surgery team. Physical exam: Patient was seen and fully evaluated at bedside this morning. He was resting comfortably in bed visiting with his and dog at bedside. Patient reports pain remains in right lower extremity, but is improved with current pain medication regimen. Patient denies having any new complaints or concerns today. Vital signs reviewed and stable. General: Nontoxic, no distress and appears stated age. Derm: Skin warm and dry, normal coloration for ethnicity. Head: Atraumatic, normocephalic and symmetric. Eyes: EOM's intact, no lid lag, and anicteric sclera Mouth: no lip lesions, mucus membranes moist Cardiovascular: regular rate and rhythm with normal S1S2, no murmur, positive posterior tibial pulses bilaterally, and cap refill < 2 seconds. Lungs: Respirations even, regular, and unlabored on room air. Lungs CTA bilaterally, no rhonchi, no rales, no wheezing, and no accessory muscle usage. Abdominal: soft, nontender to palpation, no guarding, no appreciable organomegaly Ext: No gross muscle atrophy, no contractures. Movement and sensation intact. Right lower extremity with 1+ edema and bruising. Neuro: Speech clear, face symmetrical and CN II-XII grossly intact with no noted focal neuro deficits Psych: Alert and oriented to person, place, time, and situation. Appropriate and pleasant affect. Assessment and Plan of Care: Acute DVTs involving right peroneal vein as well as posterior tibial vein Displaced oblique fracture of the proximal metadiaphysis -Continue anticoagulation with high intensity heparin infusion with close monitoring of PTT for goal therapeutic range of 45 to 79 seconds. -Consult placed orthopedic surgery team, appreciate recommendations. -Symptomatic care and pain management with Tylenol 650 mg every 6 hours as needed for mild pain/discomfort, [place] 5/325 mg tablets every 4 hours as needed for moderate pain, and morphine 4 mg IVP every 4 hours as needed for severe pain. -Nonweightbearing of right lower extremity pending further recommendations from orthopedic surgery team. -Consult placed to social work for assistance as patient reports being homeless and currently living in his car and nonweightbearing of right lower extremity. Type II rox-tqiulvx-tyzoqreio diabetes mellitus with hyperglycemia -Hold metformin and place patient on glycemic protocol with Humalog sliding scale. Hgb A1c 10.0% CAD status post stenting Angina Chronic diastolic heart failure Hypertension Hyperlipidemia Continue cardiac medication regimen with amlodipine 5 mg daily, Plavix 75 mg daily, Farxiga 5 mg daily, fenofibrate 54 mg daily, Florinef 0.1 mg daily, isosorbide mononitrate 30 mg daily, metoprolol 25 mg daily, and Ranexa 1000 mg twice daily Data and imaging reviewed: Labs reviewed. CBC showing hemoglobin of 9.6. PTT subtherapeutic at 37.7. BMP unremarkable. Blood glucose 131. Hemoglobin A1c 10.0%. Vital signs reviewed. Blood pressure 111/69, heart rate 71, respiratory rate 18, temp 98.3 F, and SpO2 of 96% on room air CODE STATUS: Full code DVT prophylaxis: Heparin infusion Anticipated discharge date: Pending clinical course Anticipated discharge place: Pending clinical course Patient was seen independently by Nurse Pracitioner. This document was prepared using [employer] dictation software. Please allow for errors in oncology admin, while rare they do occur. Dakota Frazier HAZARDOUS WASTE MANAGEMENT SPECIALIST rendered care for this patient independently, reviewed the findings and plan as documented in the note above and agree with plan. I did not physically speak with or examine the patient on this date. Objective - Vital Signs Vital signs: Vital Signs Temp 98.3 F 01/25/25 07:36 Pulse 71 01/25/25 08:41 Resp 18 01/25/25 08:41 BP 111/69 01/25/25 07:36 Pulse Ox 96 01/25/25 07:36 FiO2 Intake & Output 01/24/25 01/25/25 01/25/25 18:59 06:59 18:59 Intake Total 603.035 3059 144.606 Output Total 1575 1700 350 Balance -941.406 -500 -205.394 Weight 60.328 kg Intake: Intake, IV Titration 245.594 144.606 Amount Heparin Sod,Pork in 0.45% 245.594 144.606 NaCl 25,000 unit In 0.45 % NaCl 1 250ml.bag @ 18 UNITS/KG/HR 10.859 mls/hr IV .Q23H2M [facility] Rx#: [id number] Oral 388 Other 1200 Output: Urine 1575 1700 350 Other: Voiding Method Urinal Urinal Diaper Diaper - Labs CBC & Chem 7: 01/24/25 05:49 01/24/25 05:49 Labs: Abnormal Lab Results - Last 24 Hours (Table) 01/24/25 01/24/25 01/24/25 Range/Units 01:05 12:32 16:54 APTT (22.0-30.0) sec Carbon Dioxide 21.4 L (21.6-31.8) mmol/L Anion Gap 15.60 H (4.00-12.00) mmol/L Glucose 265 H (70-110) mg/dL POC Glucose (mg/dL) 400 H 172 H (70-110) mg/dL Total Bilirubin <0.2 L (0.3-1.2) mg/dL Total Protein 5.7 L (6.2-8.2) g/dL Albumin 3.4 L (3.8-4.9) g/dL Albumin/Globulin Ratio 1.48 L (1.60-3.17) Ratio 01/24/25 01/25/25 01/25/25 Range/Units 20:18 05:49 07:13 APTT 37.7 H (22.0-30.0) sec Carbon Dioxide (21.6-31.8) mmol/L Anion Gap (4.00-12.00) mmol/L Glucose (70-110) mg/dL POC Glucose (mg/dL) 185 H 131 H (70-110) mg/dL Total Bilirubin (0.3-1.2) mg/dL Total Protein (6.2-8.2) g/dL Albumin (3.8-4.9) g/dL Albumin/Globulin Ratio (1.60-3.17) Ratio
[2025-01-25 14:50] LABS: HCT 29.1 % (39.6-50.0); HGB 9.2 g/dL (13.0-17.0); MCH 26.2 pg (27.0-32.0); MCHC 31.6 g/dL (32.0-37.0); MCV 82.9 fL (80.0-97.0); Platelet Count 421 10*3/uL (140-440); RBC 3.51 10*6/uL (4.40-5.60); RDW 16.9 % (11.5-14.5); WBC 6.54 10*3/uL (4.50-10.00)
[2025-01-25 16:04] LABS: African American GFR (CKD) >90 (>60 ml/min/1.73 sqM); Anion Gap 12 mmol/L; Blood Urea Nitrogen 15 mg/dL (9-20); Calcium 9.6 mg/dL (8.4-10.2); Carbon Dioxide 24 mmol/L (22-30); Chloride 102 mmol/L (98-107); Glucose 185 mg/dL (74-99); Non-African American GFR(CKD) 89 (>60 ml/min/1.73 sqM); Potassium 4.3 mmol/L (3.5-5.1); Sodium 138 mmol/L (137-145)
[2025-01-25 17:10] LABS: Glucose,Whole Blood 202 mg/dL (70-110)
[2025-01-25 18:49] LABS: Glucose,Whole Blood 171 mg/dL (70-110)
--- NOTE | 2025-01-25 19:22 | P.CNOR ---
History of Present Illness - HPI Consult reason: joint pain History of present illness: The patient is a very pleasant 59-year-old male with multiple medical issues including poorly controlled diabetes with an A1c level greater than 10, multiple open wounds including a pressure sore and a social history of being homeless who is presently admitted to internal medicine with a DVT. The patient sustained a fall on January 14, 2025 and was seen in our ER where x-rays and a CT scan showed a nondisplaced proximal tibia fracture. He was placed in a knee immobilizer and follow-up was arranged in my office. I saw the patient earlier this week in the office and due to significant swelling in his right leg and exquisite calf tenderness he was sent to the emergency department for an ultrasound. He was ultimately admitted to internal medicine for social rate-isms and his DVT. Repeat x-rays showed interval displacement of his proximal tibia fracture. Orthopedics was consulted. This evening the patient and his are in his room. He is complaining of pain in his right knee with any motion. Past Medical History Past Medical History: Asthma, Coronary Artery Disease (CAD), Chest Pain / Angina, COPD, Diabetes Mellitus, GERD/Reflux, Hyperlipidemia, Myocardial Infarction (CT), Sleep Apnea/CPAP/BIPAP, Syncope Additional Past Medical History / Comment(s): 6 stents and 8 heart caths, bilateral cataracts, hypotension,divericulitis Last Myocardial Infarction Date:: 2022 History of Any Multi-Drug Resistant Organisms: None Reported Past Surgical History: Appendectomy, Bowel Resection, Heart Catheterization With Stent, Hernia Repair, Tonsillectomy Additional Past Surgical History / Comment(s): right knee, right forearm. left facial reconstruction, bilateral henia sx, partial left colon removed Past Anesthesia/Blood Transfusion Reactions: No Reported Reaction Date of Last Stent Placement:: 06/2024 Past Psychological History: ADD/ADHD, Anxiety, Bipolar, Depression Smoking Status: Former smoker Past Alcohol Use History: None Reported Past Drug Use History: None Reported - Past Family History Father Family Medical History: Cancer Additional Family Medical History / Comment(s): brain cancer Mother Family Medical History: Congestive Heart Failure (CHF) Medications and Allergies Home Medications Medication Instructions Recorded Confirmed Type ARIPiprazole [Abilify] 2 mg PO DAILY 08/15/24 01/23/25 History Clopidogrel [Plavix] 75 mg PO DAILY 08/15/24 01/23/25 History Empagliflozin [Jardiance] 10 mg PO DAILY 08/15/24 01/23/25 History Fenofibrate [Lofibra] 54 mg PO DAILY 30 Days #30 tab 08/15/24 01/23/25 Rx Metoprolol Succinate (ER) [Toprol 25 mg PO DAILY 08/15/24 01/23/25 History XL] Mometasone/Formoterol [Dulera 200 2 puff INHALATION RT-BID 08/15/24 01/23/25 History Mcg-5 Mcg Inhaler] Sertraline [Zoloft] 100 mg PO DAILY 08/15/24 01/23/25 History Ziprasidone [Geodon] 80 mg PO HS 08/15/24 01/23/25 History busPIRone HCL 15 mg PO QID 08/15/24 01/23/25 History metFORMIN HCL ER [Glucophage XR] 500 mg PO DAILY 08/15/24 01/23/25 History Aspirin 81 mg PO DAILY #30 tab 12/30/24 01/23/25 Rx Isosorbide Mononitrate ER [Imdur] 30 mg PO DAILY #30 tab 12/30/24 01/23/25 Rx Pantoprazole [Protonix] 40 mg PO DAILY #30 tab 12/30/24 01/23/25 Rx Ziprasidone [Geodon] 20 mg PO HS 12/30/24 01/23/25 History amLODIPine [Norvasc] 5 mg PO DAILY #30 tab 12/30/24 01/23/25 Rx Cyclobenzaprine [Flexeril] 10 mg PO TID PRN #15 tab 01/15/25 01/23/25 Rx Apixaban [Eliquis Starter Pack See Taper PO DIRECTED 01/23/25 01/23/25 History (for VTE)] Fludrocortisone [Florinef] 0.1 mg PO DAILY 01/23/25 01/23/25 History HYDROcodone/APAP 5-325MG [Blanch 1 tab PO Q6HR PRN 01/23/25 01/23/25 History 5-325] Prazosin [Minipress] 1 mg PO HS 01/23/25 01/23/25 History Ranolazine [Ranexa] 1,000 mg PO BID 01/23/25 01/23/25 History diphenhydrAMINE [Benadryl] 25 mg PO HS 01/23/25 01/23/25 History Allergies Allergy/AdvReac Type Severity Reaction Status Date / Time codeine Allergy Rash/Hives Verified 01/23/25 18:49 Physical Examination The patient is resting comfortably in his bed. A knee brace is in place which was taken off. On inspection there is a large wound with an eschar over the tibial tuberosity. There is mild surrounding erythema but no drainage. His thigh and calf are soft. There is minimal swelling. Results X-rays and CT scan of the right tibia show interval displacement of his proximal tibia fracture with extension into the joint. There is minimal step-off in the knee joint. - Labs Labs: Abnormal Lab Results - Last 24 Hours (Table) 01/24/25 01/25/25 01/25/25 Range/Units 20:18 05:49 07:13 RBC (4.40-5.60) 10*6/uL Hgb (13.0-17.0) g/dL Hct (39.6-50.0) % MCH (27.0-32.0) pg MCHC (32.0-37.0) g/dL RDW (11.5-14.5) % APTT 37.7 H (22.0-30.0) sec Glucose (74-99) mg/dL POC Glucose (mg/dL) 185 H 131 H (70-110) mg/dL 01/25/25 01/25/25 01/25/25 Range/Units 12:16 14:36 14:36 RBC 3.51 L (4.40-5.60) 10*6/uL Hgb 9.2 L (13.0-17.0) g/dL Hct 29.1 L (39.6-50.0) % MCH 26.2 L (27.0-32.0) pg MCHC 31.6 L (32.0-37.0) g/dL RDW 16.9 H (11.5-14.5) % APTT 42.7 H (22.0-30.0) sec Glucose (74-99) mg/dL POC Glucose (mg/dL) 173 H (70-110) mg/dL 07/23/25 07/23/25 07/23/25 Range/Units 14:36 17:09 18:48 RBC (4.40-5.60) 10*6/uL Hgb (13.0-17.0) g/dL Hct (39.6-50.0) % MCH (27.0-32.0) pg MCHC (32.0-37.0) g/dL RDW (11.5-14.5) % APTT (22.0-30.0) sec Glucose 185 H (74-99) mg/dL POC Glucose (mg/dL) 202 H 171 H (70-110) mg/dL H & H 01/23/25 01/24/25 01/24/25 Range/Units 19:20 01:05 05:49 Hgb 9.4 L 8.9 L 9.6 L (13.0-17.0) g/dL Hct 29.0 L 29.6 L 30.0 L (39.6-50.0) % 01/25/25 Range/Units 14:36 Hgb 9.2 L (13.0-17.0) g/dL Hct 29.1 L (39.6-50.0) % Coagulation 01/23/25 Range/Units 19:20 INR 0.9 (<1.2) Result Diagrams: 01/25/25 14:36 01/25/25 14:36 Assessment and Plan Assessment: Displaced right proximal tibia fracture with intra-articular extension Wound anterior aspect right tibia Poorly controlled diabetes with hemoglobin A1c of 10 Homelessness Decubitus ulcer Plan: The patient's proximal tibia fracture will eventually require operative stabilization due to its displacement. Due to the patient's eschar and wound over the anterior tibia he is unable to have surgery at this time. The wound is very close to where a lateral incision would need to be placed. The patient also has poorly controlled diabetes with an A1c of 10 putting him at a high risk for complications including delayed wound healing. A dressing with nonadherent gauze and Silvadene was placed over the eschar and the patient was placed in a knee immobilizer. The patient will need daily dressing changes until the wound heals. I have no plans for surgery during this hospitalization. The patient will need follow-up in a week for a wound check. Both the patient and his understand his elevated risk of having a complication from all of this. He has remained strictly nonweightbearing on the right leg in a knee immobilizer at all times. Time with Patient: Greater than 30
[2025-01-25 20:29] LABS: Glucose,Whole Blood 144 mg/dL (70-110)
[2025-01-26 07:14] LABS: Glucose,Whole Blood 199 mg/dL (70-110)
[2025-01-26] MEDS: Apixaban Initiation Dose--VTE 5 MG TAB PO SCH (10:03)
[2025-01-26 10:30] LABS: Anion Gap 12.20 mmol/L (4.00-12.00); BUN/Creat Ratio 13.92 Ratio (12.00-20.00); Blood Urea Nitrogen 16.7 mg/dL (9.0-27.0); Calcium 9.1 mg/dL (8.7-10.3); Carbon Dioxide 25.8 mmol/L (21.6-31.8); Chloride 104 mmol/L (96-109); Glucose 171 mg/dL (70-110); Magnesium 2.1 mg/dL (1.5-2.4); Potassium 4.1 mmol/L (3.5-5.5); Sodium 142 mmol/L (135-145)
[2025-01-26 11:08] LABS: HCT 30.7 % (39.6-50.0); HGB 9.4 g/dL (13.0-17.0); MCH 26.0 pg (27.0-32.0); MCHC 30.6 g/dL (32.0-37.0); MCV 84.8 FL (80.0-97.0); NRBC Per 100 WBC 0 X 10*3/uL (0.00-0.01); Platelet Count 411 X 10*3/uL (140-440); RBC 3.62 X 10*6/uL (4.40-5.60); RDW 16.9 % (11.5-14.5); WBC 5.07 X 10*3/uL (4.50-10.00)
[2025-01-26 12:01] LABS: Glucose,Whole Blood 187 mg/dL (70-110)
[2025-01-26 17:11] LABS: Glucose,Whole Blood 322 mg/dL (70-110)
--- NOTE | 2025-01-26 17:27 | P.PN ---
Subjective Progress Note Date: 01/26/25 Hospital course: Patient is a very pleasant 59-year-old with a past medical history of CAD status post stenting, hypertension, hyperlipidemia, chronic diastolic heart failure, jby-alnqmof-moubgsfbw diabetes mellitus, asthma, COPD, anxiety with depression, and bipolar disorder. He presented to the hospital on 01/23/2025 with a chief complaint of right lower extremity pain. Patient reports he is currently homeless and lives in the car with his and his dog and on 01/14/2025 he sustained a fall which resulted in right lower extremity pain. Patient reports he was evaluated in the emergency department at that time and was found to have a nondisplaced fracture of the anterior tibial metaphases and mild joint effusion of his knee. Patient reports he was placed in an immobilizer and discharged home with crutches and instructed to follow-up outpatient with orthopedic surgeon. Patient reports he was evaluated by the orthopedic surgeon and sent for a Doppler of his right lower extremity and was found to have a DVT involving the peroneal veins as well as 1 of 2 posterior tibial veins at the le yue of the calf and ankle. Patient was instructed to return to the emergency department for admission. Upon arrival to our facility, vital signs revealed blood pressure 140/82, heart rate 77, respiratory rate 18, temp 97.8 F, SpO2 100% on room air. Right lower extremity revealed acute mildly displaced oblique fracture of the proximal tibial metadiaphysis. Labs completed and reviewed. CBC revealed microcytic anemia with hemoglobin of 8.9. Coagulation profile showing elevated D-dimer of 2.68. BMP showing high anion gap metabolic acidosis with chloride of 104, bicarb 21.4, and anion gap of 15.60. Blood glucose was elevated at 265. Calcium 9.3. Magnesium 1.9. Patient was started on high intensity heparin infusion for treatment of acute DVTs and admitted under our services with consultation to orthopedic surgery team. Physical exam: Patient was seen and fully evaluated at bedside this morning. He was resting comfortably in bed visiting with his and dog at bedside. Patient reports pain remains in right lower extremity, but continues to improved with current pain medication regimen. Patient denies having any new complaints or concerns today. Vital signs reviewed and stable. General: Nontoxic, no distress and appears stated age. Derm: Skin warm and dry, normal coloration for ethnicity. Head: Atraumatic, normocephalic and symmetric. Eyes: EOM's intact, no lid lag, and anicteric sclera Mouth: no lip lesions, mucus membranes moist Cardiovascular: regular rate and rhythm with normal S1S2, no murmur, positive posterior tibial pulses bilaterally, and cap refill < 2 seconds. Lungs: Respirations even, regular, and unlabored on room air. Lungs CTA bilaterally, no rhonchi, no rales, no wheezing, and no accessory muscle usage. Abdominal: soft, nontender to palpation, no guarding, no appreciable organomegaly Ext: No gross muscle atrophy, no contractures. Movement and sensation intact. Right lower extremity with 1+ edema and bruising. Neuro: Speech clear, face symmetrical and CN II-XII grossly intact with no noted focal neuro deficits Psych: Alert and oriented to person, place, time, and situation. Appropriate and pleasant affect. Assessment and Plan of Care: Acute DVTs involving right peroneal vein as well as posterior tibial vein Displaced oblique fracture of the proximal metadiaphysis -Will transition patient from low intensity heparin infusion to Eliquis at this time. -Orthopedic surgery following, discussed plan of care with orthopedic surgeon. -Symptomatic care and pain management with Tylenol 650 mg every 6 hours as needed for mild pain/discomfort, [place] 5/325 mg tablets every 4 hours as needed for moderate pain, and morphine 4 mg IVP every 4 hours as needed for severe pain. -Nonweightbearing of right lower extremity pending further recommendations from orthopedic surgery team. -Consult placed to social work for assistance as patient reports being homeless and currently living in his car and nonweightbearing of right lower extremity. Type II gdr-izhttbv-fyqisjsza diabetes mellitus with hyperglycemia -Hold metformin and place patient on glycemic protocol with Humalog sliding scale. Hgb A1c 10.0% CAD status post stenting Angina Chronic diastolic heart failure Hypertension Hyperlipidemia Continue cardiac medication regimen with amlodipine 5 mg daily, Plavix 75 mg daily, Farxiga 5 mg daily, fenofibrate 54 mg daily, Florinef 0.1 mg daily, isosorbide mononitrate 30 mg daily, metoprolol 25 mg daily, and Ranexa 1000 mg twice daily Data and imaging reviewed: Labs reviewed. CBC showing hemoglobin of 9.4. PTT subtherapeutic at 42.4. BMP unremarkable. Blood glucose 171. Hemoglobin A1c 10.0%. Vital signs reviewed. Blood pressure 118/72, heart rate 77, respiratory rate 20, temp 97.7 F, and SpO2 of 97% on room air. CODE STATUS: Full code DVT prophylaxis: Eliquis Anticipated discharge date: Pending acceptance to SNF Anticipated discharge place: assisted facility Patient was seen independently by Nurse Pracitioner. This document was prepared using [employer] dictation software. Please allow for e rrors in mosaic tiler, while rare they do occur. Dakota Frazier TRANSITIONAL KINDERGARTEN TEACHER rendered care for this patient independently, reviewed the findings and plan as documented in the note above and agree with plan. I did not physically speak with or examine the patient on this date. Objective - Vital Signs Vital signs: Vital Signs Temp 97.7 F 01/26/25 07:06 Pulse 77 01/26/25 07:06 Resp 20 01/26/25 07:06 BP 118/72 01/26/25 07:06 Pulse Ox 97 01/26/25 07:06 FiO2 Intake & Output 01/25/25 01/26/25 01/26/25 18:59 06:59 18:59 Intake Total 240.531 Output Total 550 2250 Balance -309.469 -2250 Intake: Intake, IV Titration 240.531 Amount Heparin Sod,Pork in 0.45% 240.531 NaCl 25,000 unit In 0.45 % NaCl 1 250ml.bag @ 18 UNITS/KG/HR 10.859 mls/hr IV .Q23H2M [facility] Rx#: [id number] Output: Urine 550 2250 Other: Voiding Method Urinal Urinal - Labs CBC & Chem 7: 01/26/25 06:15 01/26/25 06:15 Labs: Abnormal Lab Results - Last 24 Hours (Table) 01/25/25 01/25/25 01/25/25 Range/Units 12:16 14:36 14:36 RBC 3.51 L (4.40-5.60) 10*6/uL Hgb 9.2 L (13.0-17.0) g/dL Hct 29.1 L (39.6-50.0) % MCH 26.2 L (27.0-32.0) pg MCHC 31.6 L (32.0-37.0) g/dL RDW 16.9 H (11.5-14.5) % APTT 42.7 H (22.0-30.0) sec Glucose (74-99) mg/dL POC Glucose (mg/dL) 173 H (70-110) mg/dL 01/25/25 01/25/25 01/25/25 Range/Units 14:36 17:09 18:48 RBC (4.40-5.60) 10*6/uL Hgb (13.0-17.0) g/dL Hct (39.6-50.0) % MCH (27.0-32.0) pg MCHC (32.0-37.0) g/dL RDW (11.5-14.5) % APTT (22.0-30.0) sec Glucose 185 H (74-99) mg/dL POC Glucose (mg/dL) 202 H 171 H (70-110) mg/dL 01/25/25 01/26/25 01/26/25 Range/Units 20:26 06:15 07:12 RBC (4.40-5.60) 10*6/uL Hgb (13.0-17.0) g/dL Hct (39.6-50.0) % MCH (27.0-32.0) pg MCHC (32.0-37.0) g/dL RDW (11.5-14.5) % APTT 42.4 H (22.0-30.0) sec Glucose (74-99) mg/dL POC Glucose (mg/dL) 144 H 199 H (70-110) mg/dL
[2025-01-26 20:33] LABS: Glucose,Whole Blood 153 mg/dL (70-110)
[2025-01-27 07:18] LABS: Glucose,Whole Blood 115 mg/dL (70-110)
[2025-01-27] MEDS: LACTULOSE 20 GM/30 ML CUP PO ONE (11:22)
[2025-01-27 12:48] LABS: Glucose,Whole Blood 192 mg/dL (70-110)
[2025-01-27 17:05] LABS: Glucose,Whole Blood 209 mg/dL (70-110)
--- NOTE | 2025-01-27 17:15 | P.PN ---
Subjective Progress Note Date: 01/27/25 Hospital course: Patient is a very pleasant 59-year-old with a past medical history of CAD status post stenting, hypertension, hyperlipidemia, chronic diastolic heart failure, rsq-sjmqmmk-woijoygpz diabetes mellitus, asthma, COPD, anxiety with depression, and bipolar disorder. He presented to the hospital on 01/23/2025 with a chief complaint of right lower extremity pain. Patient reports he is currently homeless and lives in the car with his and his dog and on 01/14/2025 he sustained a fall which resulted in right lower extremity pain. Patient reports he was evaluated in the emergency department at that time and was found to have a nondisplaced fracture of the anterior tibial metaphases and mild joint effusion of his knee. Patient reports he was placed in an immobilizer and discharged home with crutches and instructed to follow-up outpatient with orthopedic surgeon. Patient reports he was evaluated by the orthopedic surgeon and sent for a Doppler of his right lower extremity and was found to have a DVT involving the peroneal veins as well as 1 of 2 posterior tibial veins at the le yue of the calf and ankle. Patient was instructed to return to the emergency department for admission. Upon arrival to our facility, vital signs revealed blood pressure 140/82, heart rate 77, respiratory rate 18, temp 97.8 F, SpO2 100% on room air. Right lower extremity revealed acute mildly displaced oblique fracture of the proximal tibial metadiaphysis. Labs completed and reviewed. CBC revealed microcytic anemia with hemoglobin of 8.9. Coagulation profile showing elevated D-dimer of 2.68. BMP showing high anion gap metabolic acidosis with chloride of 104, bicarb 21.4, and anion gap of 15.60. Blood glucose was elevated at 265. Calcium 9.3. Magnesium 1.9. Patient was started on high intensity heparin infusion for treatment of acute DVTs and admitted under our services with consultation to orthopedic surgery team. Physical exam: Patient was seen and fully evaluated at bedside this morning. He was resting comfortably in bed visiting with his and dog at bedside. Patient reports pain remains in right lower extremity, but is controlled with current pain medication regimen. Patient denies having any new complaints or concerns today. Vital signs reviewed and stable. General: Nontoxic, no distress and appears stated age. Derm: Skin warm and dry, normal coloration for ethnicity. Head: Atraumatic, normocephalic and symmetric. Eyes: EOM's intact, no lid lag, and anicteric sclera Mouth: no lip lesions, mucus membranes moist Cardiovascular: regular rate and rhythm with normal S1S2, no murmur, positive posterior tibial pulses bilaterally, and cap refill < 2 seconds. Lungs: Respirations even, regular, and unlabored on room air. Lungs CTA bilaterally, no rhonchi, no rales, no wheezing, and no accessory muscle usage. Abdominal: soft, nontender to palpation, no guarding, no appreciable organomegaly Ext: No gross muscle atrophy, no contractures. Movement and sensation intact. Right lower with dressing and knee immobilizer in place and elevated on pillow. Neuro: Speech clear, face symmetrical and CN II-XII grossly intact with no noted focal neuro deficits Psych: Alert and oriented to person, place, time, and situation. Appropriate and pleasant affect. Assessment and Plan of Care: Acute DVTs involving right peroneal vein as well as posterior tibial vein Displaced oblique fracture of the proximal tibia metadiaphysis -Continue Eliquis 10 mg twice daily for a total of 7 days then transition to 5 mg twice daily -Orthopedic surgery evaluated, discussed plan of care with orthopedic surgeon. Dr. So stating patient will require surgical stabilization of dislocated right proximal tibia fracture with intra-articular extension, however stating to wounds and eschar over anterior tibia they are unable to perform surgery at this time as this is the location for surgical incision and wounds need to be healed prior to patient undergoing surgery due to his poorly controlled diabetes mellitus. -Pubic surgery recommending nonadhering dressing and Silvadene dressing to be changed daily until patient's wound heals and recommending outpatient follow-up in their office for wound evaluation and tentatively scheduling of surgery in 1 week. -Patient to remain strict nonweightbearing of right lower extremity with knee immobilizer in place at all times. -Symptomatic care and pain management with Tylenol 650 mg every 6 hours as needed for mild pain/discomfort, [place] 5/325 mg tablets every 4 hours as needed for moderate pain, and morphine 4 mg IVP every 4 hours as needed for severe pain. -gathering worker following, discussed plan of care stating patient has been accepted for SNF placement and we are currently awaiting insurance authorization . Type II [id number] diabetes mellitus with hyperglycemia, poorly controlled with hemoglobin A1c of 10.0%. -Hold metformin and place patient on glycemic protocol with Humalog sliding scale. Hgb A1c 10.0% CAD status post stenting Angina Chronic diastolic heart failure Hypertension Hyperlipidemia Continue cardiac medication regimen with amlodipine 5 mg daily, Plavix 75 mg daily, Farxiga 5 mg daily, fenofibrate 54 mg daily, Florinef 0.1 mg daily, isosorbide mononitrate 30 mg daily, metoprolol 25 mg daily, and Ranexa 1000 mg twice daily Data and imaging reviewed: Labs reviewed. CBC showing hemoglobin of 9.4. PTT subtherapeutic at 42.4. BMP unremarkable. Blood glucose 171. Hemoglobin A1c 10.0%. Vital signs reviewed. Blood pressure 100/65, heart rate 91, respiratory rate 20, temp 97.9 F, and SpO2 of 94% on room air CODE STATUS: Full code DVT prophylaxis: Eliquis Anticipated discharge date: Pending insurance authorization Anticipated discharge place: longterm facility, [facility]. Patient was seen independently by Nurse Pracitioner. This document was prepared using [employer] dictation software. Please allow for errors in intake clerk, while rare they do occur. Dakota Frazier NP rendered care for this patient independently, reviewed the findings and plan as documented in the note above and agree with plan. I did not physically speak with or examine the patient on this date. Objective - Vital Signs Vital signs: Vital Signs Temp 98.2 F 01/27/25 07:28 Pulse 70 01/27/25 07:28 Resp 18 01/27/25 07:28 BP 109/70 01/27/25 07:28 Pulse Ox 97 01/27/25 07:28 FiO2 Intake & Output 01/26/25 01/27/25 01/27/25 18:59 06:59 18:59 Intake Total 1044 358 Output Total 1900 1100 Balance -856 -1100 358 Weight 60.328 kg Intake: Oral 1044 358 Output: Urine 1900 1100 Other: Voiding Method Urinal Urinal - Labs CBC & Chem 7: 01/26/25 06:15 01/26/25 06:15 Labs: Abnormal Lab Results - Last 24 Hours (Table) 01/26/25 01/26/25 01/26/25 Range/Units 06:15 06:15 11:59 RBC 3.62 L (4.40-5.60) X 10*6/uL Hgb 9.4 L (13.0-17.0) g/dL Hct 30.7 L (39.6-50.0) % MCH 26.0 L (27.0-32.0) pg MCHC 30.6 L (32.0-37.0) g/dL RDW 16.9 H (11.5-14.5) % Anion Gap 12.20 H (4.00-12.00) mmol/L Glucose 171 H (70-110) mg/dL POC Glucose (mg/dL) 187 H (70-110) mg/dL 01/26/25 01/26/25 01/27/25 Range/Units 17:10 20:30 07:12 RBC (4.40-5.60) X 10*6/uL Hgb (13.0-17.0) g/dL Hct (39.6-50.0) % MCH (27.0-32.0) pg MCHC (32.0-37.0) g/dL RDW (11.5-14.5) % Anion Gap (4.00-12.00) mmol/L Glucose (70-110) mg/dL POC Glucose (mg/dL) 322 H 153 H 115 H (70-110) mg/dL
--- NOTE | 2025-01-27 18:21 | CDI ---
Documentation Clarification Form Date: 01/27/2025 05:57:04 PM From: Tali Perry RN, CCDS Phone: [phone] Admit Date: 01/23/2025 07:07:00 PM Patient Name: Burke Villagomez Visit Number: [id number] Discharge Date: ATTENTION: The Clinical Documentation Specialists (CDI) and [facility] Coding Staff appreciate your assistance in clarifying documentation. Please respond to the clarification below the line at the bottom and electronically sign. The CDI & [facility] Coding staff will review the response and follow-up if needed. Please note: Queries are made part of the Legal Health Record. If you have any questions, please contact the author of this message via ITS. DoctorJudi Martin Coding guidelines do not allow coding professionals to assign diagnosis codes based on ancillary documentation without supportive documentation from a provider; therefore, clarification is requested. The bait painter on 01/23/25 indicates this patient has a bilateral buttock pressure ulcer stage II. Based on this information and the findings below, is there an additional diagnosis that is clinically appropriate for this patient? History/Risk Factors: Chronic diastolic heart failure, Hypertension, hyperlipidemia, DVTs Clinical Indicators: 59-year-old female present with DVT right leg. She has severe weakness, require 1 person assist with activity. Voiding method: Diaper/Brief Location: Bilateral buttock Wound description: Warm, Erythema Treatment: Dressing changed Foam w/Border 1 person assist/Physical assistance Is there an additional diagnosis that is clinically appropriate for this patient? [ x ] Stage 2 Pressure Ulcer bilateral buttock present on admission [ ] Other condition, please specify [ ] Unable to determine Clinical Definitions: Stage 1 Pressure Ulcer: intact skin, non-blanching redness of local area Stage 2 Pressure Ulcer: Partial thickness, loss of dermis, pink wound bed Stage 3 Pressure Ulcer: Full thickness tissue loss Stage 4 Pressure Ulcer: Full thickness tissue loss with exposed bone, tendon, or muscle. Unstageable pressure ulcer: Full thickness tissue loss in which the base of the ulcer is covered by slough (yellow, lynn, henderson, green or brown) and/or eschar (lynn, brown or black) in the wound bed. (Template Last Revised: January 2025) MTDD
[2025-01-27 20:11] LABS: Glucose,Whole Blood 206 mg/dL (70-110)
[2025-01-27] MEDS ORDERED: ZINC OXIDE PASTE (Z-GUARD) 1 APPLIC TOPICAL PRN (23:12)
[2025-01-28 07:19] LABS: Glucose,Whole Blood 139 mg/dL (70-110)
[2025-01-28 12:18] LABS: Glucose,Whole Blood 197 mg/dL (70-110)
--- NOTE | 2025-01-28 17:10 | P.PN ---
Subjective Progress Note Date: 01/28/25 Hospital course: Patient is a very pleasant 59-year-old with a past medical history of CAD status post stenting, hypertension, hyperlipidemia, chronic diastolic heart failure, ruf-[id number] diabetes mellitus, asthma, COPD, anxiety with depression, and bipolar disorder. He presented to the hospital on 01/23/2025 with a chief complaint of right lower extremity pain. Patient reports he is currently homeless and lives in the car with his and his dog and on 01/14/2025 he sustained a fall which resulted in right lower extremity pain. Patient reports he was evaluated in the emergency department at that time and was found to have a nondisplaced fracture of the anterior tibial metaphases and mild joint effusion of his knee. Patient reports he was placed in an immobilizer and discharged home with crutches and instructed to follow-up outpatient with orthopedic surgeon. Patient reports he was evaluated by the orthopedic surgeon and sent for a Doppler of his right lower extremity and was found to have a DVT involving the peroneal veins as well as 1 of 2 posterior tibial veins at the le yue of the calf and ankle. Patient was instructed to return to the emergency department for admission. Upon arrival to our facility, vital signs revealed blood pressure 140/82, heart rate 77, respiratory rate 18, temp 97.8 F, SpO2 100% on room air. Right lower extremity revealed acute mildly displaced oblique fracture of the proximal tibial metadiaphysis. Labs completed and reviewed. CBC revealed microcytic anemia with hemoglobin of 8.9. Coagulation profile showing elevated D-dimer of 2.68. BMP showing high anion gap metabolic acidosis with chloride of 104, bicarb 21.4, and anion gap of 15.60. Blood glucose was elevated at 265. Calcium 9.3. Magnesium 1.9. Patient was started on high intensity heparin infusion for treatment of acute DVTs and admitted under our services with consultation to orthopedic surgery team. Physical exam: Patient was seen and fully evaluated at bedside this morning. He was resting comfortably in bed and continues to deny having any new questions, concerns, complaints, or needs at this time. Patient continues to await insurance authorization for transfer to SNF, per psychosocial rehabilitation counselor unlikely to get authorization before Thursday. Vital signs reviewed and stable. General: Nontoxic, no distress and appears stated age. Derm: Skin warm and dry, normal coloration for ethnicity. Head: Atraumatic, normocephalic and symmetric. Eyes: EOM's intact, no lid lag, and anicteric sclera Mouth: no lip lesions, mucus membranes moist Cardiovascular: regular rate and rhythm with normal S1S2, no murmur, positive posterior tibial pulses bilaterally, and cap refill < 2 seconds. Lungs: Respirations even, regular, and unlabored on room air. Lungs CTA bilat erally, no rhonchi, no rales, no wheezing, and no accessory muscle usage. Abdominal: soft, nontender to palpation, no guarding, no appreciable organomegaly Ext: No gross muscle atrophy, no contractures. Movement and sensation intact. Right lower with dressing and knee immobilizer in place and elevated on pillow. Neuro: Speech clear, face symmetrical and CN II-XII grossly intact with no noted focal neuro deficits Psych: Alert and oriented to person, place, time, and situation. Appropriate and pleasant affect. Assessment and Plan of Care: Acute DVTs involving right peroneal vein as well as posterior tibial vein Displaced oblique fracture of the proximal tibia metadiaphysis -Continue Eliquis 10 mg twice daily for a total of 7 days then transition to 5 mg twice daily -Orthopedic surgery evaluated, discussed plan of care with orthopedic surgeon. Dr. So stating patient will require surgical stabilization of dislocated right proximal tibia fracture with intra-articular extension, however stating to wounds and eschar over anterior tibia they are unable to perform surgery at this time as this is the location for surgical incision and wounds need to be healed prior to patient undergoing surgery due to his poorly controlled diabetes mellitus. -Pubic surgery recommending nonadhering dressing and Silvadene dressing to be changed daily until patient's wound heals and recommending outpatient follow-up in their office for wound evaluation and tentatively scheduling of surgery in 1 week. -Patient to remain strict nonweightbearing of right lower extremity with knee immobilizer in place at all times. -Symptomatic care and pain management with Tylenol 650 mg every 6 hours as nee ded for mild pain/discomfort, [place] 5/325 mg tablets every 4 hours as needed for moderate pain, and morphine 4 mg IVP every 4 hours as needed for severe pain. -rubber worker following, discussed plan of care stating patient has been accepted for SNF placement and we are currently awaiting insurance authorization. Type II imj-msacjet-bwmudgmuw diabetes mellitus with hyperglycemia, poorly controlled with hemoglobin A1c of 10.0%. -Hold metformin and place patient on glycemic protocol with Humalog sliding scale. Hgb A1c 10.0% CAD status post stenting Angina Chronic diastolic heart failure Hypertension Hyperlipidemia Continue cardiac medication regimen with amlodipine 5 mg daily, Plavix 75 mg daily, Farxiga 5 mg daily, fenofibrate 54 mg daily, Florinef 0.1 mg daily, isosorbide mononitrate 30 mg daily, metoprolol 25 mg daily, and Ranexa 1000 mg twice daily Stage II pressure ulcer on buttocks, present upon arrival to our facility - Continue offloading to prevent further skin breakdown, encourage out of bed with all meals. Wound care Data and imaging reviewed: Labs reviewed. CBC showing hemoglobin of 9.4. PTT subtherapeutic at 42.4. BMP unremarkable. Blood glucose 171. Hemoglobin A1c 10.0%. Vital signs reviewed. Blood pressure 120/73, heart rate 78, respiratory rate 15, temp 99.1 F, and SpO2 of 98% on room air CODE STATUS: Full code DVT prophylaxis: Eliquis Anticipated discharge date: Pending insurance authorization Anticipated discharge place: [facility] facility, [facility]. Patient was seen independently by Nurse Pracitioner. This document was prepared using [employer] dictation software. Please allow for errors in deputy harbormaster, while rare they do occur. Dakota Frazier NP rendered care for this patient independently, reviewed the findings and plan as documented in the note above and agree with plan. I did not physically speak with or examine the patient on this date. Objective - Vital Signs Vital signs: Vital Signs Temp 99.1 F 01/28/25 08:00 Pulse 78 01/28/25 08:00 Resp 15 01/28/25 08:00 BP 120/73 01/28/25 08:00 Pulse Ox 98 01/28/25 08:00 FiO2 Intake & Output 01/27/25 01/28/25 01/28/25 18:59 06:59 18:59 Intake Total 1715 Output Total 775 2400 Balance 940 -2400 Intake: Oral 1715 Output: Urine 775 2400 Other: Voiding Method Urinal - Labs CBC & Chem 7: 01/26/25 06:15 01/26/25 06:15 Labs: Abnormal Lab Results - Last 24 Hours (Table) 01/27/25 01/27/2501/27/25 Range/Units 12:46 17:04 20:09 POC Glucose (mg/dL) 192 H 209 H 206 H (70-110) mg/dL 01/28/25 Range/Units 07:18 POC Glucose (mg/dL) 139 H (70-110) mg/dL
[2025-01-28 18:10] LABS: Glucose,Whole Blood 140 mg/dL (70-110)
[2025-01-28 20:21] LABS: Glucose,Whole Blood 220 mg/dL (70-110)
[2025-01-29 07:17] LABS: Glucose,Whole Blood 128 mg/dL (70-110)
[2025-01-29 09:44] LABS: HCT 31.2 % (39.6-50.0); HGB 9.5 g/dL (13.0-17.0); MCH 25.2 pg (27.0-32.0); MCHC 30.4 g/dL (32.0-37.0); MCV 82.8 FL (80.0-97.0); NRBC Per 100 WBC 0 X 10*3/uL (0.00-0.01); Platelet Count 476 X 10*3/uL (140-440); RBC 3.77 X 10*6/uL (4.40-5.60); RDW 16.8 % (11.5-14.5); WBC 5.79 X 10*3/uL (4.50-10.00)
[2025-01-29 09:56] LABS: Anion Gap 10.20 mmol/L (4.00-12.00); BUN/Creat Ratio 19.30 Ratio (12.00-20.00); Blood Urea Nitrogen 19.3 mg/dL (9.0-27.0); Calcium 9.4 mg/dL (8.7-10.3); Carbon Dioxide 23.8 mmol/L (21.6-31.8); Chloride 103 mmol/L (96-109); Glucose 156 mg/dL (70-110); Potassium 3.8 mmol/L (3.5-5.5); Sodium 137 mmol/L (135-145)
[2025-01-29 11:58] LABS: Glucose,Whole Blood 254 mg/dL (70-110)
[2025-01-29 17:00] LABS: Glucose,Whole Blood 259 mg/dL (70-110)
--- NOTE | 2025-01-29 17:19 | P.PN ---
Subjective Progress Note Date: 01/29/25 Hospital course: Patient is a very pleasant 59-year-old with a past medical history of CAD status post stenting, hypertension, hyperlipidemia, chronic diastolic heart failure, piu-cvnitbj-jtriptqpt diabetes mellitus, asthma, COPD, anxiety with depression, and bipolar disorder. He presented to the hospital on 01/23/2025 with a chief complaint of right lower extremity pain. Patient reports he is currently homeless and lives in the car with his and his dog and on 01/14/2025 he sustained a fall which resulted in right lower extremity pain. Patient reports he was evaluated in the emergency department at that time and was found to have a nondisplaced fracture of the anterior tibial metaphases and mild joint effusion of his knee. Patient reports he was placed in an immobilizer and discharged home with crutches and instructed to follow-up outpatient with orthopedic surgeon. Patient reports he was evaluated by the orthopedic surgeon and sent for a Doppler of his right lower extremity and was found to have a DVT involving the peroneal veins as well as 1 of 2 posterior tibial veins at the le yue of the calf and ankle. Patient was instructed to return to the emergency department for admission. Upon arrival to our facility, vital signs revealed blood pressure 140/82, heart rate 77, respiratory rate 18, temp 97.8 F, SpO2 100% on room air. Right lower extremity revealed acute mildly displaced oblique fracture of the proximal tibial metadiaphysis. Labs completed and reviewed. CBC revealed microcytic anemia with hemoglobin of 8.9. Coagulation profile showing elevated D-dimer of 2.68. BMP showing high anion gap metabolic acidosis with chloride of 104, bicarb 21.4, and anion gap of 15.60. Blood glucose was elevated at 265. Calcium 9.3. Magnesium 1.9. Patient was started on high intensity heparin infusion for treatment of acute DVTs and admitted under our services with consultation to orthopedic surgery team. Physical exam: Patient was seen and fully evaluated at bedside this morning. He was resting comfortably in bed and continues to deny having any new questions, concerns, complaints, or needs at this time. Patient continues to await insurance authorization for transfer to SNF, per social work specialist unlikely to get authorization before Thursday. Vital signs reviewed and stable. General: Nontoxic, no distress and appears stated age. Derm: Skin warm and dry, normal coloration for ethnicity. Head: Atraumatic, normocephalic and symmetric. Eyes: EOM's intact, no lid lag, and anicteric sclera Mouth: no lip lesions, mucus membranes moist Cardiovascular: regular rate and rhythm with normal S1S2, no murmur, positive posterior tibial pulses bilaterally, and cap refill < 2 seconds. Lungs: Respirations even, regular, and unlabored on room air. Lungs CTA bilat erally, no rhonchi, no rales, no wheezing, and no accessory muscle usage. Abdominal: soft, nontender to palpation, no guarding, no appreciable organomegaly Ext: No gross muscle atrophy, no contractures. Movement and sensation intact. Right lower with dressing and knee immobilizer in place and elevated on pillow. Neuro: Speech clear, face symmetrical and CN II-XII grossly intact with no noted focal neuro deficits Psych: Alert and oriented to person, place, time, and situation. Appropriate and pleasant affect. Assessment and Plan of Care: Acute DVTs involving right peroneal vein as well as posterior tibial vein Displaced oblique fracture of the proximal tibia metadiaphysis -Continue Eliquis 10 mg twice daily for a total of 7 days then transition to 5 mg twice daily -Orthopedic surgery evaluated, discussed plan of care with orthopedic surgeon. Dr. So stating patient will require surgical stabilization of dislocated right proximal tibia fracture with intra-articular extension, however stating to wounds and eschar over anterior tibia they are unable to perform surgery at this time as this is the location for surgical incision and wounds need to be healed prior to patient undergoing surgery due to his poorly controlled diabetes mellitus. -Pubic surgery recommending nonadhering dressing and Silvadene dressing to be changed daily until patient's wound heals and recommending outpatient follow-up in their office for wound evaluation and tentatively scheduling of surgery in 1 week. -Patient to remain strict nonweightbearing of right lower extremity with knee immobilizer in place at all times. -Symptomatic care and pain management with Tylenol 650 mg every 6 hours as nee ded for mild pain/discomfort, [place] 5/325 mg tablets every 4 hours as needed for moderate pain, and morphine 4 mg IVP every 4 hours as needed for severe pain. -cellar worker following, discussed plan of care stating patient has been accepted for SNF placement and we are currently awaiting insurance authorization. Type II okg-icsaccb-xloalejwa diabetes mellitus with hyperglycemia, poorly controlled with hemoglobin A1c of 10.0%. -Hold metformin and place patient on glycemic protocol with Humalog sliding scale. Hgb A1c 10.0% CAD status post stenting Angina Chronic diastolic heart failure Hypertension Hyperlipidemia Continue cardiac medication regimen with amlodipine 5 mg daily, Plavix 75 mg daily, Farxiga 5 mg daily, fenofibrate 54 mg daily, Florinef 0.1 mg daily, isosorbide mononitrate 30 mg daily, metoprolol 25 mg daily, and Ranexa 1000 mg twice daily Stage II pressure ulcer on buttocks, present upon arrival to our facility - Continue offloading to prevent further skin breakdown, encourage out of bed with all meals. Wound care Data and imaging reviewed: Labs reviewed. CBC showing hemoglobin of 9.5. BMP unremarkable. Blood glucose 156. Calcium 9.4. Vital signs reviewed. Blood pressure 100/64, heart rate 66, respiratory rate 16, temp 97.7 F, and SpO2 of 98% on room CODE STATUS: Full code DVT prophylaxis: Eliquis Anticipated discharge date: Pending insurance authorization Anticipated discharge place[facility]. Patient was seen independently by Nurse Pracitioner. This document was prepared using [employer] dictation software. Please allow for errors in wooden frame builder, while rare they do occur. Dakota Frazier NP rendered care for this patient independently, reviewed the f indings and plan as documented in the note above and agree with plan. I did not physically speak with or examine the patient on this date. Objective - Vital Signs Vital signs: Vital Signs Temp 97.7 F 01/29/25 08:00 Pulse 66 01/29/25 08:00 Resp 16 01/29/25 08:00 BP 100/64 01/29/25 08:00 Pulse Ox 98 01/29/25 08:00 FiO2 Intake & Output 01/28/25 01/29/25 01/29/25 18:59 06:59 18:59 Intake Total 1220 780 Output Total 1400 1625 Balance -180 -845 Intake: Oral 1220 780 Output: Urine 1400 1625 Other: Voiding Method Urinal Urinal - Labs CBC & Chem 7: 01/29/25 04:41 01/29/25 04:41 Labs: Abnormal Lab Results - Last 24 Hours (Table) 01/28/25 01/28/25 01/28/25 Range/Units 12:15 18:09 20:20 RBC (4.40-5.60) X 10*6/uL Hgb (13.0-17.0) g/dL Hct (39.6-50.0) % MCH (27.0-32.0) pg MCHC (32.0-37.0) g/dL RDW (11.5-14.5) % Plt Count (140-440) X 10*3/uL Glucose (70-110) mg/dL POC Glucose (mg/dL) 197 H 140 H 220 H (70-110) mg/dL 01/29/25 01/29/25 01/29/25 Range/Units 04:41 04:41 07:16 RBC 3.77 L (4.40-5.60) X 10*6/uL Hgb 9.5 L (13.0-17.0) g/dL Hct 31.2 L (39.6-50.0) % MCH 25.2 L (27.0-32.0) pg MCHC 30.4 L (32.0-37.0) g/dL RDW 16.8 H (11.5-14.5) % Plt Count 476 H (140-440) X 10*3/uL Glucose 156 H (70-110) mg/dL POC Glucose (mg/dL) 128 H (70-110) mg/dL
[2025-01-29 20:33] LABS: Glucose,Whole Blood 204 mg/dL (70-110)
[2025-01-30 07:05] LABS: Glucose,Whole Blood 137 mg/dL (70-110)
[2025-01-30 07:16] VITALS: BP 121/74; PULSE 71; RESP 16; TEMP 97.6
[2025-01-30 07:59] LABS: Anion Gap 11.70 mmol/L (4.00-12.00); BUN/Creat Ratio 19.09 Ratio (12.00-20.00); Blood Urea Nitrogen 21.0 mg/dL (9.0-27.0); Calcium 9.5 mg/dL (8.7-10.3); Carbon Dioxide 23.3 mmol/L (21.6-31.8); Chloride 104 mmol/L (96-109); Glucose 159 mg/dL (70-110); Potassium 4.2 mmol/L (3.5-5.5); Sodium 139 mmol/L (135-145)
[2025-01-30 08:06] LABS: Basophils # (A) 0.04 X 10*3/uL (0.00-0.10); Basophils % (A) 0.7 %; Eosinophils # (A) 0.18 X 10*3/uL (0.04-0.35); Eosinophils % (A) 2.9 %; HCT 31.3 % (39.6-50.0); HGB 9.5 g/dL (13.0-17.0); Immature Grans, Automated 1.50 %; Lymphocytes # (A) 1.56 X 10*3/uL (0.90-5.00); Lymphocytes % (A) 25.4 %; MCH 25.3 pg (27.0-32.0); MCHC 30.4 g/dL (32.0-37.0); MCV 83.5 FL (80.0-97.0); Monocytes # (A) 0.69 X 10*3/uL (0.20-1.00); Monocytes % (A) 11.2 %; NRBC Per 100 WBC 0 X 10*3/uL (0.00-0.01); Neutrophils # (A) 3.59 X 10*3/uL (1.80-7.70); Neutrophils % (A) 58.3 %; Platelet Count 438 X 10*3/uL (140-440); RBC 3.75 X 10*6/uL (4.40-5.60); RDW 16.9 % (11.5-14.5); WBC 6.15 X 10*3/uL (4.50-10.00)
[2025-01-30 12:15] LABS: Glucose,Whole Blood 142 mg/dL (70-110)
--- NOTE | 2025-01-30 12:21 | P.DS ---
Providers Date of admission: 01/23/25 19:07 Expected date of discharge: 01/30/25 Attending physician: Mohsen Thayer MD Consults: 01/24/25 17:38 Consult Physician Urgent Consulting Provider: Pratik So Consult Reason/Comments: displaced oblique fracture of the proximal tibial metadiaphysis and RLE DVT Do you want consulting provider notified?: Yes Primary care physician: Physician Nonstaff Hospital Course: Discharge Diagnosis: Acute DVTs involving right peroneal vein as well as posterior tibial vein. Continue Eliquis 10 mg twice daily x 7 days followed by decreased dose of 5 mg twice daily onward. Decreased dose of Eliquis 5 mg twice daily to begin on 02/02/2025. Displaced oblique fracture of the proximal tibia metadiaphysis. Patient will require surgical stabilization of dislocated right proximal tibia fracture with intra-articular extension, however stating due tp the wounds and eschar over anterior tibia they are unable to perform surgery at this time as this is the location for surgical incision and wounds need to be healed prior to patient undergoing surgery due to his poorly controlled diabetes mellitus. Type II jro-kskjpdm-vtdrbeorw diabetes mellitus with hyperglycemia, poorly controlled with hemoglobin A1c of 10.0%. Highly recommend following a heart healthy and carb consistent diet. Patient to continue daily medication regimen with metformin and Jardiance along with Humalog sliding scale and Lantus 10 units nightly. CAD status post stenting. Continue cardiac medication regimen with amlodipine 5 mg daily, Plavix 75 mg daily, Farxiga 5 mg daily, fenofibrate 54 mg daily, Florinef 0.1 mg daily, isosorbide mononitrate 30 mg daily, metoprolol 25 mg daily, and Ranexa 1000 mg twice daily Angina Chronic diastolic heart failure Hypertension Hyperlipidemia Stage II pressure ulcer on buttocks, present upon arrival to our facility. Continue offloading to prevent further skin breakdown, encourage out of bed with all meals. Hospital Course: Patient is a very pleasant 59-year-old with a past medical history of CAD status post stenting, hypertension, hyperlipidemia, chronic diastolic heart failure, lvk-cttigdn-lszzseljr diabetes mellitus, asthma, COPD, anxiety with depression, and bipolar disorder. He presented to the hospital on 01/23/2025 with a chief complaint of right lower extremity pain. Patient reports he is currently homeless and lives in the car with his and his dog and on 01/14/2025 he sustained a fall which resulted in right lower extremity pain. Patient reports he was evaluated in the emergency department at that time and was found to have a nondisplaced fracture of the anterior tibial metaphases and mild joint effusion of his knee. Patient reports he was placed in an immobilizer and discharged home with crutches and instructed to follow-up outpatient with orthopedic surgeon. Patient reports he was evaluated by the orthopedic surgeon and sent for a Doppler of his right lower extremity and was found to have a DVT involving the peroneal veins as well as 1 of 2 posterior tibial veins at the level of the calf and ankle. Patient was instructed to return to the emergency department for admission. Upon arrival to our facility, vital signs revealed blood pressure 140/82, heart rate 77, respiratory rate 18, temp 97.8 F, SpO2 100% on room air. Right lower extremity revealed acute mildly displaced oblique fracture of the proximal tibial metadiaphysis. Labs completed and reviewed. CBC revealed microcytic anemia with hemoglobin of 8.9. Coagulation profile showing elevated D-dimer of 2.68. BMP showing high anion gap metabolic acidosis with chloride of 104, bicarb 21.4, and anion gap of 15.60. Blood glucose was elevated at 265. Calcium 9.3. Magnesium 1.9. Patient was started on high intensity heparin infusion for treatment of acute DVTs and admitted under our services with consultation to orthopedic surgery team. Physical exam: Vital signs reviewed and stable. General: Nontoxic, no distress and appears stated age. Derm: Skin warm and dry, normal coloration for ethnicity. Head: Atraumatic, normocephalic and symmetric. Eyes: EOM's intact, no lid lag, and anicteric sclera Mouth: no lip lesions, mucus membranes moist Cardiovascular: regular rate and rhythm with normal S1S2, no murmur, positive posterior tibial pulses bilaterally, and cap refill < 2 seconds. Lungs: Respirations even, regular, and unlabored on room air. Lungs CTA bilaterally, no rhonchi, no rales, no wheezing, and no accessory muscle usage. Abdominal: soft, nontender to palpation, no guarding, no appreciable organomegaly Ext: No gross muscle atrophy, no contractures. Movement and sensation intact. Right lower with dressing and knee immobilizer in place and elevated on pillow. Neuro: Speech clear, face symmetrical and CN II-XII grossly intact with no noted focal neuro deficits Psych: Alert and oriented to person, place, time, and situation. Appropriate and pleasant affect. A total of 36 minutes of time were spent preparing this complex discharge summary. Pt was discharged on 01/30/2025 at 11:17 AM. Patient was seen independently by Nurse Practitioner. This document was prepared using [employer] dictation software. Please allow for errors in associate material handler while rare they do occur. Dakota Frazier NP rendered care for this patient independently, reviewed the findings and plan as documented in the note above. I did not physically speak with or examine the patient on this date. Patient Condition at Discharge: Stable Plan - Discharge Summary Discharge Rx Participant: No New Discharge Prescriptions: New INSULIN LISPRO (HumaLOG) [HumaLOG] See Rx Instructions .ROUTE .COMPLEX each Insulin Glargine (Lantus) [Lantus Vial] 10 unit SQ HS each polyethylene glycoL 3350 [Miralax] 17 gm PO HS packet HYDROcodone/APAP 5-325MG [Erwin 5-325] 1 each PO Q4HR PRN #9 tab PRN Reason: Moderate Pain (Scale 4 To 6) SILVER sulfADIAZINE CREAM [Silvadene Cream] 1 applic TOPICAL DAILY each Acetaminophen Tab [Tylenol] 650 mg PO Q6HR PRN tab PRN Reason: Mild Pain Or Fever > 100.5 Continue Ziprasidone [Geodon] 80 mg PO HS Clopidogrel [Plavix] 75 mg PO DAILY ARIPiprazole [Abilify] 2 mg PO DAILY Ziprasidone [Geodon] 20 mg PO HS Isosorbide Mononitrate ER [Imdur] 30 mg PO DAILY #30 tab Cyclobenzaprine [Flexeril] 10 mg PO TID PRN #15 tab PRN Reason: Muscle Spasm diphenhydrAMINE [Benadryl] 25 mg PO HS Ranolazine [Ranexa] 1,000 mg PO BID metFORMIN HCL ER [Glucophage XR] 500 mg PO DAILY Sertraline [Zoloft] 100 mg PO DAILY Mometasone/Formoterol [Dulera 200 Mcg-5 Mcg Inhaler] 2 puff INHALATION RT-BID Metoprolol Succinate (ER) [Toprol XL] 25 mg PO DAILY Empagliflozin [Jardiance] 10 mg PO DAILY busPIRone HCL 15 mg PO QID Fenofibrate [Lofibra] 54 mg PO DAILY 30 Days #30 tab amLODIPine [Norvasc] 5 mg PO DAILY #30 tab Pantoprazole [Protonix] 40 mg PO DAILY #30 tab Apixaban [Eliquis Starter Pack (for VTE)] See Taper PO DIRECTED Fludrocortisone [Florinef] 0.1 mg PO DAILY Prazosin [Minipress] 1 mg PO HS Discontinued HYDROcodone/APAP 5-325MG [Erwin 5-325] 1 tab PO Q6HR PRN PRN Reason: Pain Aspirin 81 mg PO DAILY #30 tab Discharge Medication List ARIPiprazole [Abilify] 2 mg PO DAILY 08/15/24 [History] Clopidogrel [Plavix] 75 mg PO DAILY 08/15/24 [History] Empagliflozin [Jardiance] 10 mg PO DAILY 08/15/24 [History] Fenofibrate [Lofibra] 54 mg PO DAILY 30 Days #30 tab 08/15/24 [Rx] Metoprolol Succinate (ER) [Toprol XL] 25 mg PO DAILY 08/15/24 [History] Mometasone/Formoterol [Dulera 200 Mcg-5 Mcg Inhaler] 2 puff INHALATION RT-BID 08/15/24 [History] Sertraline [Zoloft] 100 mg PO DAILY 08/15/24 [History] Ziprasidone [Geodon] 80 mg PO HS 08/15/24 [History] busPIRone HCL 15 mg PO QID 08/15/24 [History] metFORMIN HCL ER [Glucophage XR] 500 mg PO DAILY 08/15/24 [History] Isosorbide Mononitrate ER [Imdur] 30 mg PO DAILY #30 tab 12/30/24 [Rx] Pantoprazole [Protonix] 40 mg PO DAILY #30 tab 12/30/24 [Rx] Ziprasidone [Geodon] 20 mg PO HS 12/30/24 [History] amLODIPine [Norvasc] 5 mg PO DAILY #30 tab 12/30/24 [Rx] Cyclobenzaprine [Flexeril] 10 mg PO TID PRN #15 tab 01/15/25 [Rx] Apixaban [Eliquis Starter Pack (for VTE)] See Taper PO DIRECTED 01/23/25 [History] Fludrocortisone [Florinef] 0.1 mg PO DAILY 01/23/25 [History] Prazosin [Minipress] 1 mg PO HS 01/23/25 [History] Ranolazine [Ranexa] 1,000 mg PO BID 01/23/25 [History] diphenhydrAMINE [Benadryl] 25 mg PO HS 01/23/25 [History] Acetaminophen Tab [Tylenol] 650 mg PO Q6HR PRN tab 01/30/25 [Rx] HYDROcodone/APAP 5-325MG [Erwin 5-325] 1 each PO Q4HR PRN #9 tab 01/30/25 [Rx] INSULIN LISPRO (HumaLOG) [HumaLOG] See Rx Instructions .ROUTE .COMPLEX each 01/30/25 [Rx] Insulin Glargine (Lantus) [Lantus Vial] 10 unit SQ HS each 01/30/25 [Rx] SILVER sulfADIAZINE CREAM [Silvadene Cream] 1 applic TOPICAL DAILY each 01/30/25 [Rx] polyethylene glycoL 3350 [Miralax] 17 gm PO HS packet 01/30/25 [Rx] Follow up Appointment(s)/Referral(s): Nonstaff,Physician [Primary Care Provider] - 1-2 days Pratik So MD [Medical Doctor] - 1 Week Activity/Diet/Wound Care/Special Instructions: NON weightbearing Right lower extremity, keep knee immobilizer on. Daily dressing changes to right knee scab: silvadene/kerlex/peng. Stage II pressure ulcer on buttocks, present upon arrival to our facility. Continue offloading to prevent further skin breakdown, encourage out of bed with all meals. Monitor your blood glucose levels 4 times daily before meals and at bedtime. Discharge Disposition: TRANSFER TO SNF/ECF
== END 2025-01-30 15:02 | DRG 300 ==
LOC: EC 18:42 → 5NMEDONC 19:07
PROVIDERS: ADMIT Internal Medicine; ATTEND Internal Medicine
DX: I82.451 Acute embolism and thrombosis of right peroneal vein (principal); E87.20 Acidosis, unspecified; L89.322 Pressure ulcer of left buttock, stage 2; L89.312 Pressure ulcer of right buttock, stage 2; I11.0 Hypertensive heart disease with heart failure; E11.65 Type 2 diabetes mellitus with hyperglycemia; D50.9 Iron deficiency anemia, unspecified; I82.441 Acute embolism and thrombosis of right tibial vein; S82.101A Unspecified fracture of upper end of right tibia, initial encounter for closed fracture; F31.9 Bipolar disorder, unspecified; J44.89 Other specified chronic obstructive pulmonary disease; I50.32 Chronic diastolic (congestive) heart failure; Z59.00 Homelessness unspecified; Z79.4 Long term (current) use of insulin; I25.119 Atherosclerotic heart disease of native coronary artery with unspecified angina pectoris; E78.5 Hyperlipidemia, unspecified; W19.XXXA Unspecified fall, initial encounter; Z88.5 Allergy status to narcotic agent; I25.2 Old myocardial infarction; F41.9 Anxiety disorder, unspecified; F90.9 Attention-deficit hyperactivity disorder, unspecified type; Z79.01 Long term (current) use of anticoagulants; Z79.02 Long term (current) use of antithrombotics/antiplatelets; Z79.51 Long term (current) use of inhaled steroids; Z79.52 Long term (current) use of systemic steroids; Z79.82 Long term (current) use of aspirin; Z79.84 Long term (current) use of oral hypoglycemic drugs; Z79.899 Other long term (current) drug therapy; Z82.49 Family history of ischemic heart disease and other diseases of the circulatory system; Z95.5 Presence of coronary angioplasty implant and graft; Z87.891 Personal history of nicotine dependence; Z98.42 Cataract extraction status, left eye; Z98.41 Cataract extraction status, right eye
CPT/HCPCS: 80048; 80053; 83036; 83735; 84100; 85025; 85027; 85379; 85610; 85730; 94640; 96365; 96366; 96375; 99285

== ENCOUNTER → 2025-01-23 | Outpatient (CLI) | payer MEDICARE, OTHER ==
--- NOTE | 2025-01-23 10:36 | US ---
EXAMINATION TYPE: US venous doppler duplex LE RT DATE OF EXAM: 01/23/2025 10:14 AM COMPARISON: NONE CLINICAL INDICATION: Male, 59 years old with history of RIGH LOWER I82.401 ACUTE EMBOLISM AND THOMBOS UNSP; Edema, pain. No hx of DVT. Patient takes Plavix. TECHNIQUE: The lower extremity deep venous system is examined utilizing real time linear array sonog fabio with graded compression, doppler sonography and color-flow sonography. Grayscale, color doppler , spectral doppler imaging performed of the deep veins of the lower extremities FINDINGS: SIDE PERFORMED: Right VESSELS IMAGED: Common Femoral Vein Deep Femoral Vein Greater Saphenous Vein * Femoral Vein Popliteal Vein Small Saphenous Vein * Proximal Calf Veins (* superficial vessels) Right Leg: Seed [employer] Manager Production notes: There appear to be internal echoes in 1 of 2 PTVs and in both peroneal veins in the calf/ankle. These vessels do not compress or show color flow. Color flow seen in remaining veins imaged. Duplicate mid femoral vein noted. IMPRESSION: Positive for right lower extremity DVT involving the peroneal veins as well as one of 2 posterior tib ial veins at the level of the calf and ankle. [facility], , 01/23/2025 10:34 AM
== END | disposition home or self-care (01) ==
LOC: RADUSWWP 09:49
PROVIDERS: ATTEND Orthopaedic Surgery
DX: I82.441 Acute embolism and thrombosis of right tibial vein (principal)